=== PATIENT | male | born 1990 | race Caucasian/White ===

== ENCOUNTER 2017-04-21 10:29 | Emergency (ER) | payer OTHER ==
[2017-04-21] MEDS ORDERED: NS 0.9% 1000 ML* 1,000 ML IV ONE (10:52)
--- NOTE | 2017-04-21 11:05 | ED ---
Complex/Multi-Sys Presentation - HPI Summary HPI Summary: 26M presents with bilateral rib pain and upper abdominal pain today. He states he has a headache. He he had a couple episodes of vomiting that had some blood tinge to it. He denies any chest pain or SOB. He denies any cough. He states he has beginning of cirrhosis that this is what the pain feels like. He denies any diarrhea or constipation. He denies any fever. He denies any sinus congestion or generalized malaise. He denies any flank pain, dysuria, hematuria , frequency, urgency. He states headache is generalized. He denies any neck stiffness. He denies any melena or blood in stool. He denies any previous abdominal surgeries. He has a defibrillator because he has long QT. She has fmaily history of cirrhosis. He sees a GI doctor in [place]. - History Of Current Complaint Chief Complaint: EDAbdPain Time Seen by Provider: 04/21/17 10:45 - Allergies/Home Medications Allergies/Adverse Reactions: Allergies Allergy/AdvReac Type Severity Reaction Status Date / Time Sertraline [From Zoloft] Allergy Severe See Comment Verified 04/21/17 10:39 PMH/Surg Hx/FS Hx/Imm Hx Cardiovascular History: Reports: Hx Pacemaker/ICD, Other Cardiovascular Problems /Disorders - long QT GI History: Reports: Other GI Disorders - elevated LFT Infectious Disease History: No Infectious Disease History: Denies: Traveled Outside the in Last 30 Days - Social History Alcohol Use: None Substance Use Type: Reports: None Smoking Status (MU): Current Every Day Smoker Review of Systems Negative: Fever Positive: Other - lower rib pain. Negative: Chest Pain Negative: Shortness Of Breath Positive: Abdominal Pain, Vomiting, Nausea. Negative: Diarrhea All Other Systems Reviewed And Are Negative: Yes Physical Exam Triage Information Reviewed: Yes Vital Signs On Initial Exam: Initial Vitals Temp Pulse Resp BP Pulse Ox 98.4 F 58 16 129/71 98 04/21/17 10:31 04/21/17 10:31 04/21/17 10:31 04/21/17 10:31 04/21/17 10:31 Vital Signs Reviewed: Yes Appearance: Positive: Well-Appearing Skin: Positive: Warm, Dry Head/Face: Positive: Normal Head/Face Inspection Eyes: Positive: Normal, EOMI, PAVITHRA, Conjunctiva Clear ENT: Positive: Normal ENT inspection, Pharynx normal, TMs normal Respiratory/Lung Sounds: Positive: Clear to Auscultation, Breath Sounds Present , Other - tenderness lower ribs Cardiovascular: Positive: Normal, RRR Abdomen Description: Positive: Soft, Other: - tenderness epigastric, neg lisa Bowel Sounds: Positive: Present Musculoskeletal: Positive: Normal Neurological: Positive: Normal Psychiatric: Positive: Normal Diagnostics - Vital Signs Vital Signs Temp Pulse Resp BP Pulse Ox 04/21/17 10:31 98.4 F 58 16 129/71 98 - Laboratory Result Diagrams: 04/21/17 12:12 04/21/17 12:12 Lab Statement: Any lab studies that have been ordered have been reviewed, and results considered in the medical decision making process. - Radiology chest Xray Interpretation: No Acute Changes Radiology Interpretation Completed By: Radiologist - CT abd CT Interpretation: Positive (See Comments) - 1. "Mosaic" distribution of groundglass opacification most severely affecting the left upper lobe. The differential for this includes asthma, hypersensitivity pneumonitis and/or pulmonary embolism. 2. No complete characterization of the pulmonary arteries is not made on this CT examination due to inadequate bolus timing but there is likely no large cyst central or lobar pulmonary embolus. 3. There is a segment of proximal small bowel wall thickening measuring up to 1.3 cm in thickness. Please correlate to signs and symptoms of proximal enteritis. 4. Questionable identification of a mildly enlarged retroperitoneal lymph node of uncertain clinical significance. CT Interpretation Completed By: Radiologist - Ultrasound No standard instances Ultrasound Interpretation: No Acute Changes Ultrasound Interpretation Completed By: Radiologist - EKG No standard instances Cardiac Rate: NL, Bradycardia EKG Rhythm: Sinus Bradycardia ST Segment: Normal EKG Interpretation: sinus willian rhythmn, no significant ST elevation improved since previous EKG Comparison: Other - improved since previous EKG Complex Multi-Symp Course/Dx Course Of Treatment: 26M presents with bilateral rib pain and upper abdominal pain today. He states he has a headache. He he had a couple episodes of vomiting that had some blood tinge to it. He denies any chest pain or SOB. He denies any cough. He states he has beginning of cirrhosis that this is what the pain feels like. He denies any diarrhea or constipation. He denies any fever. He denies any sinus congestion or generalized malaise. He denies any flank pain, dysuria, hematuria, frequency, urgency. He states headache is generalized. He denies any neck stiffness. on exam has tenderness lower ribs, mild tenderness epigastric region. neg lisa. u/s gallbladder normal. chest xray normal. d-dimer normal. troponin normal. wbc 18 with left shift. bilirubin 1.3. due to labs will get CT. CT shows inflamation of proximal enteritis which would explain wbc. discussed with dr lynn does not antibiotic. will treat with zofran and brat diet. he has a wood stove which would explain mosaic appearance in lungs. patient admits to diarrhea at discharge as did not understand what diarrhea was. patient understand and agrees with plan. - Diagnoses Differential Diagnoses/HQI/PQRI: Urinary Tract Infection, Other - cirrhosis, pancreatitis, PE, gallbladder disease Provider Diagnoses: Abdominal pain, Nausea vomiting and diarrhea Discharge - Discharge Plan Condition: Good Disposition: HOME Prescriptions: Ondansetron ODT TAB* [Zofran 4 MG Odt TAB*] 4 mg PO Q6H PRN #20 tab.odt PRN Reason: Nausea Patient Education Materials: Gastroenteritis (ED) Referrals: Madelaine Bell MD [Primary Care Provider] - Additional Instructions: Can take Zofran every 6 hours as needed for nausea Drink small amounts of fluid as tolerated When able to eat follow BRAT diet: Bananas, rice, applesauce, toast Take ibuprofen or Tylenol for pain as needed every 6 hours Follow up with primary within 5 days Return to ED if develop fever that does not respond to Tylenol or ibuprofen, severe abdominal pain, or any new or worsening symptoms
[2017-04-21] MEDS ORDERED: Ondansetron INJ* 2 MG/ML VIAL IV ONE (11:06)
--- NOTE | 2017-04-21 11:46 | RAD ---
INDICATION: Bilateral rib pain COMPARISON: Similar chest x-ray dated November 07, 2012. TECHNIQUE: PA and lateral views of the chest were obtained. FINDINGS: Since the prior chest x-ray there has been placement of a 2-lead left upper chest cardiac pacemaker. The heart and mediastinum are normal in size and contour. The lungs are grossly clear. There is no evidence of large pleural effusion. Visualized bones are normal for the patient's age. There is no radiographic evidence of free air beneath the diaphragm IMPRESSION: No radiographic evidence of acute cardiopulmonary disease.
--- NOTE | 2017-04-21 12:03 | RAD ---
HISTORY: Epigastric pain COMPARISONS: None TECHNIQUE: Multiple transverse and longitudinal ultrasound images were obtained of the right upper quadrant. FINDINGS: LIVER: The liver is normal in dimensions and echogenicity. Normal hepatic and portal venous blood flow is duplicated with color flow imaging. There is no gross intrahepatic biliary duct dilatation. GALLBLADDER AND EXTRAHEPATIC BILIARY DUCT: The gallbladder is normal in appearance without intraluminal stones or other soft tissue masses. There is no pericholecystic fluid or gallbladder wall thickening. The common bile duct measures a maximum diameter of 2 mm. PANCREAS: The portions of the pancreas not obscured by bowel gas are normal in appearance. RIGHT KIDNEY: The right kidney is normal in size, morphology and echogenicity. AORTA AND IVC: The visualized portions are normal in appearance and not pathologically dilated. IMPRESSION: Normal ultrasound of the right upper quadrant.
[2017-04-21 12:31] LABS: Hematocrit 44 % (42-52); Hemoglobin 14.5 g/dl (14.0-18.0); Mean Corpuscular HGB Conc 33 g/dl (31-36); Mean Corpuscular Hemoglobin 30 pg (27-31); Mean Corpuscular Volume 89 fL (80-94); Mean Platelet Volume 8 um3 (7.4-10.4); Red Blood Count 4.93 10^6/ul (4.0-5.4); Red Cell Distribution Width 14 % (10.5-15); White Blood Count 18.2 10^3/ul (3.5-10.8)
[2017-04-21 12:46] LABS: ALT 12 U/L (7-52); AST 20 U/L (13-39); Albumin 4.4 g/dL (3.2-5.2); Alkaline Phosphatase 62 U/L (34-104); Anion Gap 8 mmol/L (2-11); BUN/Creatinine Ratio 22.5 (8-20); Blood Urea Nitrogen 20 mg/dL (6-24); CO2 Carbon Dioxide 25 mmol/L (22-32); Calcium 9.4 mg/dL (8.6-10.3); Chloride 102 mmol/L (101-111); EGFR African American 133.9 (>60); EGFR Non-African American 104.2 (>60); Globulin 2.7 g/dL (2-4); Glucose 94 mg/dL (70-100); Lipase < 10 U/L (11.0-82.0); Potassium 4.1 mmol/L (3.5-5.0); Sodium 135 mmol/L (133-145); Total Protein 7.1 g/dL (6.4-8.9)
[2017-04-21 12:56] LABS: Urine Bacteria Absent (Absent); Urine Bilirubin Negative (Negative); Urine Glucose Negative (Negative); Urine Nitrite Negative (Negative)
[2017-04-21 13:05] LABS: Manual Entry Verification HAN0055; Mono Internal Control QC Line Present
[2017-04-21] MEDS ORDERED: Iohexol 300* (CONTRAST) 10 ML SDV IV ONE (14:21)
--- NOTE | 2017-04-21 16:03 | RAD ---
INDICATION: Bilateral rib pain, nausea and vomiting. COMPARISON: None. TECHNIQUE: Multidetector CT images of the chest, abdomen and pelvis were obtained from the lung apices to the ischial tuberosities following the injection of 72 mL Omnipaque 300. The patient received oral contrast as well.. CHEST: Determination of pulmonary embolism is unreliable as this was not imaged according to a pulmonary embolism protocol. There are no central filling defects of the mainstem pulmonary arteries or proximal lobar branches. Again seen is a left upper chest cardiac pacemaker with 2 leads overlying the heart. There are geographic areas of groundglass opacification, the largest in the left upper lobe but scattered throughout the left lung and right upper lobe. There is no mediastinal or hilar lymphadenopathy. The heart and major vascular structures are grossly normal in appearance. ABDOMEN & PELVIS: The spleen, pancreas and adrenal glands are grossly normal in appearance. There is prominence of the biliary ducts throughout the liver without amy dilatation. At the anterior right lobe of the liver (image 21) there is a 5 mm hypoattenuating focus that is not further characterized on this CT examination. The liver is otherwise homogenous in attenuation and the surface is smooth. The gallbladder is normal. 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 Otherwise the kidneys are normal in appearance without focal mass, calcification or signs of hydronephrosis. On the delayed phase images contrast is symmetrically and promptly excreted. There are contrast has progressed as far as the rectum. At the proximal small bowel there are loops of bowel exhibiting severe wall thickening (axial image 41 and coronal image 26 measuring up to 1.1 cm in thickness. The appendix is not confidently identified in the right lower quadrant but there are no acute inflammatory changes in the right lower quadrant to indicate acute appendicitis. There is a questionably enlarged left of midline periaortic retroperitoneal lymph node measuring 8 x 15 mm in the axial plane (image 34). There is no definite mesenteric lymphadenopathy. The pelvic viscera is normal in appearance. The abdominal aorta and iliac arteries are normal in course and diameter. . There are no sinister bone lesions. IMPRESSION: 1. "Mosaic" distribution of groundglass opacification most severely affecting the left upper lobe. The differential for this includes asthma, hypersensitivity pneumonitis and/or pulmonary embolism. 2. No complete characterization of the pulmonary arteries is not made on this CT examination due to inadequate bolus timing but there is likely no large cyst central or lobar pulmonary embolus. 3. There is a segment of proximal small bowel wall thickening measuring up to 1.3 cm in thickness. Please correlate to signs and symptoms of proximal enteritis. 4. Questionable identification of a mildly enlarged retroperitoneal lymph node of uncertain clinical significance.
[2017-04-21 16:22] VITALS: BP 111/67
== END 2017-04-21 16:30 | disposition home or self-care (01) ==
LOC: ED 10:29
DX: R10.9 Unspecified abdominal pain (principal); R11.2 Nausea with vomiting, unspecified; R19.7 Diarrhea, unspecified
CPT/HCPCS: 36415; 71020; 71260; 74177; 76705; 80053; 81003; 81015; 83690; 83880; 84484; 85025; 85379; 86141; 86308; 87086; 93005; 99283; J2405; Q9967

== ENCOUNTER 2017-06-29 05:49 | Emergency (ER) | payer MEDICAID, OTHER ==
[2017-06-29] MEDS ORDERED: NS 0.9% 1000 ML* 1,000 ML IV ONE (06:04)
[2017-06-29] MEDS ORDERED: Ketorolac INJ* 30 MG/ML 1 ML VIAL IV PUSH ONE (06:05)
[2017-06-29 06:35] LABS: ABS Basophils 0.1 10^3/ul (0-0.2); ABS Eosinophils 0.1 10^3/ul (0-0.6); ABS Lymphocytes 1.9 10^3/ul (1.0-4.8); ABS Monocytes 0.5 10^3/ul (0-0.8); ABS Neutrophils 3.6 10^3/ul (1.5-7.7); ABS Nucleated RBC 0 10^3/ul; Eosinophil % 1.9 % (0-6); Hematocrit 43 % (42-52); Hemoglobin 14.8 g/dl (14.0-18.0); Lymphocyte % 31.3 % (25-47); Mean Corpuscular HGB Conc 34 g/dl (31-36); Mean Corpuscular Hemoglobin 30 pg (27-31); Mean Corpuscular Volume 87 fL (80-94); Mean Platelet Volume 8 um3 (7.4-10.4); Nucleated Red Blood Cells % 0; Platelet Count 147 10^3/ul (150-450); Red Blood Count 4.96 10^6/ul (4.0-5.4); Red Cell Distribution Width 13 % (10.5-15); White Blood Count 6.1 10^3/ul (3.5-10.8)
[2017-06-29 06:57] LABS: EGFR Non-African American 100.2 (>60)
--- NOTE | 2017-06-29 06:57 | ED ---
Albert Pace Tecjoon, scribed for Mukul Romano MD on 06/29/17 at 0608 . HPI Chest Pain - HPI Summary HPI Summary: This patient is a 26 year old male BIBA to [facility] with a chief complaint of chest pain since waking up a few hours ago. Patient states that he was sleeping and owke up out of a sleep with chest pain. Patient states he has a prior history of cardiac disease and has a defibrillator on chest. The pain is described as a stabbing pain. The pain is rated 9/10 in severity and is 7/10 currently. Symptoms aggravated by nothing. Symptoms alleviated by nothing. Patient additionally reports dizziness. Patient denies recent chest trauma. Patient was given aspirin in the field by EMS. - History of Current Complaint Time Seen by Provider: 06/29/17 05:52 Hx Obtained From: Patient Onset/Duration: Started Hours Ago, Still Present Timing: Constant Initial Severity: Mild Current Severity: Mild Pain Intensity: 7 Pain Scale Used: 0-10 Numeric Chest Pain Location: Diffuse Aggravating Factor(s): Nothing Alleviating Factor(s): Nothing Associated Signs and Symptoms: Positive: Negative - recent chest trauma, Other: - dizziness PMH/Surg Hx/FS Hx/Imm Hx Previously Healthy: No Cardiovascular History: Reports: Hx Pacemaker/ICD, Other Cardiovascular Problems /Disorders - long QT GI History: Reports: Other GI Disorders - elevated LFT Opthamlomology History: Denies: Hx Legally Blind EENT History: Denies: Hx Deafness - Family History Known Family History: Positive: Cardiac Disease - Social History Alcohol Use: None Hx Substance Use: No Substance Use Type: Reports: None Hx Tobacco Use: Yes Smoking Status (MU): Former Smoker Type: Cigarettes Review of Systems Negative: Fever Positive: Chest Pain Neurological: Other - dizziness All Other Systems Reviewed And Are Negative: Yes Physical Exam - Summary Physical Exam Summary: Appearance: Well appearing, no pain distress, disheveled Skin: warm, dry, reflects adequate perfusion Head/face: normal Eyes: EOMI, PAVITHRA ENT: normal Neck: supple, non-tender Respiratory: CTA, breath sounds present Cardiovascular: RRR, pulses symmetrical, Pacemaker/defibrillator, Aicd in left chest Abdomen: non-tender, soft Bowel: present Musculoskeletal: normal, strength/ROM intact Neuro: normal, sensory motor intact, A&Ox3 Triage Information Reviewed: Yes Vital Signs On Initial Exam: Initial Vitals Temp Pulse Resp BP Pulse Ox 36.7 C 64 16 100/54 100 06/29/17 05:50 06/29/17 05:50 06/29/17 05:50 06/29/17 05:50 06/29/17 05:50 Vital Signs Reviewed: Yes Diagnostics - Vital Signs Vital Signs Temp Pulse Resp BP Pulse Ox 06/29/17 06:11 58 19 98 06/29/17 06:10 110/62 06/29/17 05:50 36.7 C 64 16 100/54 100 - Laboratory Lab Results: Lab Results 06/29/17 06/29/17 Range/Units 06:15 06:15 WBC 6.1 (3.5-10.8) 10^3/ul RBC 4.96 (4.0-5.4) 10^6/ul Hgb 14.8 (14.0-18.0) g/dl Hct 43 (42-52) % MCV 87 (80-94) fL MCH 30 (27-31) pg MCHC 34 (31-36) g/dl RDW 13 (10.5-15) % Plt Count 147 L (150-450) 10^3/ul MPV 8 (7.4-10.4) um3 Neut % (Auto) 57.8 (38-83) % Lymph % (Auto) 31.3 (25-47) % Logan % (Auto) 8.1 (1-9) % Eos % (Auto) 1.9 (0-6) % Baso % (Auto) 0.9 (0-2) % Absolute Neuts (auto) 3.6 (1.5-7.7) 10^3/ul Absolute Lymphs (auto) 1.9 (1.0-4.8) 10^3/ul Absolute Monos (auto) 0.5 (0-0.8) 10^3/ul Absolute Eos (auto) 0.1 (0-0.6) 10^3/ul Absolute Basos (auto) 0.1 (0-0.2) 10^3/ul Absolute Nucleated RBC 0 10^3/ul Nucleated RBC % 0 Lactic Acid 0.4 L (0.5-2.0) mmol/L Result Diagrams: 01/27/18 06:15 Lab Statement: Any lab studies that have been ordered have been reviewed, and results considered in the medical decision making process. - Radiology CXR Xray Interpretation: Positive (See Comments) - CXR reveals, per ED Physician, Thin body habitus. Aicd left chest. No acute infiltrate. Normal media stenum. Radiology Interpretation Completed By: ED Physician - EKG 0551 Cardiac Rate: Bradycardia EKG Rhythm: Sinus Bradycardia - 55 BPM EKG Interpretation: Sinus Bradycardia, left axis deviation, reveals QT prolongation 49ms Re-Evaluation - Re-Evaluation First Eval Re-Evaluation Time: 06:52 Change: Improved Comment: Patient states that his pain is gone with Toradol Chest Pain Course/Dx - Course Course Of Treatment: pt with freq bouts of sharp, fleeting chest pains of very short duration over years. Hx of alivia long QT syndrome with AICD. No c/o palpitations. Ddimer, Trop not detected. ECG unchanged from previous. Pain gone with toradol. 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 - Chest Pain Differential Diagnosis/HQI/PQRI: Acute MS, ACS, Chest Wall, Lower Respiratory Infection, Pulmonary Embolism - Diagnoses Provider Diagnoses: Atypical chest pain, Congenital long QT syndrome Discharge - Discharge Plan Condition: Good Disposition: HOME Patient Education Materials: Chest Pain (ED) Referrals: Madelanie Bell MD [Primary Care Provider] - Additional Instructions: Call Dr Madera your [employer] [facility] in [place] on Saturday for an appt. They can interrogate your defibrillator device. Ibuprofen as needed for discomfort. Return with palpitation, passing out, uncontrolled pain, worse or other concerns as discussed. The documentation as recorded by the Albert sam Tecjoon accurately reflects the service I personally performed and the decisions made by me, Mukul Romano MD.
[2017-06-29 07:24] VITALS: BP 104/66
--- NOTE | 2017-06-29 08:25 | RAD ---
HISTORY: Chest pain COMPARISONS: April 21, 2017 VIEWS: 1: frontal portable view of the chest at 6:20 AM FINDINGS: LINES AND TUBES: A left-sided AICD pacemaker is noted. CARDIOMEDIASTINAL SILHOUETTE: The cardiomediastinal silhouette is normal for portable technique. PLEURA: The costophrenic angles are sharp. No pleural abnormalities are noted. LUNG PARENCHYMA: The lungs are clear. ABDOMEN: The upper abdomen is clear. There is no subphrenic gas. BONES AND SOFT TISSUES: No bone or soft tissue abnormalities are noted. IMPRESSION: LINES AND TUBES ABOVE. NO ACTIVE CARDIOPULMONARY DISEASE.
== END 2017-06-29 07:16 | disposition home or self-care (01) ==
LOC: ED 05:49
DX: R07.89 Other chest pain (principal); I45.81 Long QT syndrome; R42 Dizziness and giddiness; Z87.891 Personal history of nicotine dependence
CPT/HCPCS: 36415; 71045; 80053; 83605; 84484; 85025; 85379; 93005; 96361; 96374; 99283; J1885

== ENCOUNTER 2017-09-16 13:52 | Emergency (ER) | payer MEDICAID ==
[2017-09-16] MEDS ORDERED: Amoxicillin/Clavulanate TAB* 875 MG PO ONE (15:13)
--- NOTE | 2017-09-16 15:16 | ED ---
Throat Pain/Nasal Congestion - HPI Summary HPI Summary: 27-year-old male presents with sinus pressure for the past day. He states that for the past 5 days he's had increasing sinus congestion but today the pressure has become extreme. He admits to ear pain. He admits to headache that is worse when went forward. He denies any fevers. He also admits to cough. Denies any shortness breath or chest pain. Denies any bowel pain. He states he states whenever he cough he starts to feel nauseous. Does have a defibrillator placed for arrhythmia. He hasn't taking ibuprofen without relief. This is not worse headache of his life. He denies any neck pain. Denies any sore throat. No one else is sick. His is . - History of Current Complaint Chief Complaint: EDGeneral Time Seen by Provider: 09/16/17 14:52 - Allergies/Home Medications Allergies/Adverse Reactions: Allergies Allergy/AdvReac Type Severity Reaction Status Date / Time sertraline [From Zoloft] AdvReac See Comment Verified 09/16/17 13:58 Home Medications: Home Medications Carvedilol TAB* [Coreg TAB*] 3.125 mg PO BID 09/16/17 [History Confirmed ] Magnesium [Magnesium Elemental] 30 mg PO DAILY 09/16/17 [History Confirmed 09/16] PMH/Surg Hx/FS Hx/Imm Hx Endocrine/Hematology History: Denies: Hx Anticoagulant Therapy Cardiovascular History: Reports: Hx Pacemaker/ICD, Other Cardiovascular Problems /Disorders - long QT GI History: Reports: Other GI Disorders - elevated LFT Sensory History: Denies: Hx Legally Blind, Hx Deafness Opthamlomology History: Denies: Hx Legally Blind - Immunization History Date of Influenza Vaccine: has not received Infectious Disease History: No Infectious Disease History: Denies: Traveled Outside the [place] in Last 30 Days - Family History Known Family History: Positive: Cardiac Disease - Social History Alcohol Use: None Hx Substance Use: No Substance Use Type: Reports: None Hx Tobacco Use: Yes Smoking Status (MU): Former Smoker Type: Cigarettes Review of Systems Negative: Fever Positive: Ear Ache, Nasal Discharge Negative: Chest Pain Negative: Shortness Of Breath Positive: Headache All Other Systems Reviewed And Are Negative: Yes Physical Exam Triage Information Reviewed: Yes Vital Signs On Initial Exam: Initial Vitals Temp Pulse Resp BP Pulse Ox 99.1 F 71 14 116/74 98 09/16/17 13:56 09/16/17 13:56 09/16/17 13:56 09/16/17 13:56 09/16/17 13:56 Vital Signs Reviewed: Yes Appearance: Positive: Well-Appearing Skin: Positive: Warm, Dry Head/Face: Positive: Normal Head/Face Inspection Eyes: Positive: Normal, EOMI, PAVITHRA, Conjunctiva Clear ENT: Positive: Normal ENT inspection, Pharynx normal, Nasal congestion, TMs normal, Sinus tenderness Neck: Positive: Supple, Nontender, No Lymphadenopathy Respiratory/Lung Sounds: Positive: Clear to Auscultation, Breath Sounds Present Cardiovascular: Positive: Normal, RRR Abdomen Description: Positive: Nontender, Soft Bowel Sounds: Positive: Present Musculoskeletal: Positive: Normal Neurological: Positive: Normal Psychiatric: Positive: Normal Diagnostics - Vital Signs Vital Signs Temp Pulse Resp BP Pulse Ox 09/16/17 13:56 99.1 F 71 14 116/74 98 - Laboratory Lab Statement: Any lab studies that have been ordered have been reviewed, and results considered in the medical decision making process. EENT Course/Dx - Course Course Of Treatment: 27-year-old male presents with sinus pressure for the past day. He states that for the past 5 days he's had increasing sinus congestion but today the pressure has become extreme. He admits to ear pain. He admits to headache that is worse when went forward. He denies any fevers. He also admits to cough. Denies any shortness breath or chest pain. Denies any bowel pain. He states he states whenever he cough he starts to feel nauseous. Does have a defibrillator placed for arrhythmia. He hasn't taking ibuprofen without relief. This is not worse headache of his life. He denies any neck pain. Denies any sore throat. No one else is sick. His is . On exam nasal congestion Present. fluid behind TM. Tenderness of the sinuses. Lungs clear to auscultation. Will treat with Augmentin as symptoms have gotten worse. We'll also uses Flonase. Patient understands agrees with plan. - Differential Diagnoses Differential Diagnoses: Allergic Rhinitis, Otitis Media, Sinusitis - Diagnoses Provider Diagnoses: Sinusitis Discharge - Sign-Out/Discharge Documenting (check all that apply): Discharge - Discharge Plan Condition: Good Disposition: HOME Prescriptions: Amoxicillin/Clavulanate TAB* [Augmentin TAB 875*] 875 mg PO BID #19 tab Fluticasone NASAL SPRAY 50MCG* [Flonase NASAL SPRAY 50MCG*] 2 spray BOTH NARES DAILY #1 btl Patient Education Materials: Sinusitis (ED) Referrals: Madelaine Bell MD [Primary Care Provider] - Additional Instructions: Take antibiotic twice a day for 10 days Use intranasal steroid one spray each nostril twice a day Use saline spray in nose as much as needed Use humidifier in room or can use warm water in bowls Use OTC decongestions Take tyenlol or ibuprofen for pain every 6 hours Follow up with primary care physician within a week for no improvement Return to ED with any new or worsening symptoms - Billing Disposition and Condition Condition: GOOD Disposition: HOME
[2017-09-16 16:07] VITALS: BP 110/65
== END 2017-09-16 16:07 | disposition home or self-care (01) ==
LOC: ED 13:52
DX: J32.9 Chronic sinusitis, unspecified (principal); R51 Headache; Z87.891 Personal history of nicotine dependence; H92.09 Otalgia, unspecified ear
CPT/HCPCS: 99282; A9270-GY

== ENCOUNTER → 2018-02-14 09:08 | Emergency (ER) | payer MEDICAID ==
--- NOTE | 2018-02-14 09:37 | ED ---
HPI Chest Pain - HPI Summary HPI Summary: This patient is a 27 year old M presenting to [facility] accompanied by a female with a chief complaint of a stabbing CP that began this morning when he woke up. The patient rates the pain 6/10 in severity. Symptoms aggravated by deep breaths. Patient reports nasal congestion, cough, and headache that began yesterday. Pt is concerned because of his ICD. - History of Current Complaint Chief Complaint: EDGeneral Hx Obtained From: Patient Onset/Duration: Started Hours Ago, Still Present Timing: Constant Initial Severity: Moderate Current Severity: Moderate Pain Intensity: 6 Pain Scale Used: 0-10 Numeric Chest Pain Location: Diffuse Chest Pain Radiates: No Character: Sharp/Stabbing Associated Signs and Symptoms: Positive: Other: - nasal congestion, cough, and headache that began yesterday - Allergy/Home Medications Allergies/Adverse Reactions: Allergies Allergy/AdvReac Type Severity Reaction Status Date / Time sertraline [From Zoloft] AdvReac See Comment Verified 02/14/18 09:41 Home Medications: Home Medications Zoloft 25 mg PO DAILY 02/14/18 [History Confirmed 02/14/18] PMH/Surg Hx/FS Hx/Imm Hx Endocrine/Hematology History: Denies: Hx Anticoagulant Therapy Cardiovascular History: Reports: Hx Pacemaker/ICD, Other Cardiovascular Problems /Disorders - long QT GI History: Reports: Other GI Disorders - elevated LFT Sensory History: Denies: Hx Legally Blind, Hx Deafness Opthamlomology History: Denies: Hx Legally Blind Neurological History: Reports: Other Neuro Impairments/Disorders - scoliosis, Psychiatric History: Reports: Hx Anxiety, Hx Depression - Immunization History Date of Influenza Vaccine: has not received Infectious Disease History: No Infectious Disease History: Denies: Traveled Outside the [place] in Last 30 Days - Family History Known Family History: Positive: Cardiac Disease - Social History Lives: With Family Alcohol Use: None Hx Substance Use: No Substance Use Type: Reports: None Hx Tobacco Use: Yes Smoking Status (MU): Former Smoker Type: Cigarettes Review of Systems Positive: Other - nasal congestion Positive: Chest Pain Positive: Cough Positive: Headache All Other Systems Reviewed And Are Negative: Yes Physical Exam - Summary Physical Exam Summary: VITAL SIGNS: Reviewed. GENERAL: Patient is a well-developed and nourished male who is lying comfortable in the stretcher. Patient is not in any acute respiratory distress poor hygiene HEAD AND FACE: No signs of trauma. No ecchymosis, hematomas or skull depressions. No sinus tenderness. EYES: PERRLA, EOMI x 2, No injected conjunctiva, no nystagmus. EARS: Hearing grossly intact. Ear canals and tympanic membranes are within normal limits. MOUTH: Oropharynx within normal limits. nasal mucus with erythema NECK: Supple, trachea is midline, no adenopathy, no JVD, no carotid bruit, no c- spine tenderness, neck with full ROM. CHEST: Symmetric, no tenderness at palpation LUNGS: Clear to auscultation bilaterally. No wheezing or crackles. CVS: Regular rate and rhythm, S1 and S2 present, no murmurs or gallops appreciated. ABDOMEN: Soft, non-tender. No signs of distention. No rebound no guarding, and no masses palpated. Bowel sounds are normal. EXTREMITIES: FROM in all major joints, no edema, no cyanosis or clubbing. NEURO: Alert and oriented x 3. No acute neurological deficits. Speech is normal and follows commands. SKIN: Dry and warm Triage Information Reviewed: Yes Vital Signs On Initial Exam: Initial Vitals Temp Pulse Resp BP Pulse Ox 98.3 F 66 16 114/73 99 02/14/18 09:11 02/14/18 09:11 02/14/18 09:11 02/14/18 09:11 02/14/18 09:11 Vital Signs Reviewed: Yes Diagnostics - Vital Signs Vital Signs Temp Pulse Resp BP Pulse Ox 02/14/18 09:11 98.3 F 66 16 114/73 99 - Laboratory Result Diagrams: 02/14/18 09:41 02/14/18 09:41 Lab Statement: Any lab studies that have been ordered have been reviewed, and results considered in the medical decision making process. - Radiology CXR Radiology Interpretation Completed By: Radiologist - no acute cardiopulmonary disease ED physician has reviewed this radiology report. - EKG 0915 Cardiac Rate: NL EKG Rhythm: Sinus Rhythm - at 60 BPM EKG Interpretation: no STEMI EKG Comparison: No Significant Change - 06-29-17 similar Chest Pain Course/Dx - Course Assessment/Plan: This patient is a 27-year-old male who presents to the emergency department with a chief complaint of having chest pain. The patient reports that chest pain is sharp without any radiation. The patient denies any nausea vomiting, shortness of breath or diaphoresis. He also reports that he has past medical history for arrhythmias and he has a pacemaker. He also reports that he has been having nasal congestion and he wanted be tested for GC and chlamydia since his Friend told him that she was found to be positive for Chlamydia. Patient denies any penile discharge or pain. Patient has no other complaints. Blood test results without any significant abnormality. Troponin is 0.00. The chest x-ray shows no acute pathology. The EKG shows no ST elevation and is similar to. His EKG done in the past in the emergency department. Therefore this point i dont not believe that the patient has any acute coronary syndrome I believe the patient has a viral infection likely an upper respiratory tract infection. Therefore the patient will be discharged home with follow-up with PCP. The patient will be given a prescription for Flonase. The STI testing is pending and the patient did not want any treatment at this time. I discussed all the findings and test results with the patient. Patient was instructed to return to the emergency room immediately if any of the symptoms return or worsens. Plan of care was discussed with the patient and understands and agrees. All questions were answered at patient satisfaction. There were no further complaints or concerns. Lung exam before discharge: CTA B /L. Good air exchange. No wheezing or crackles heard. CVS: S1 and S2 present. No murmurs appreciated. Patient is alert and oriented x 3. Patient is hemodynamically stable. Patient will be discharged home with follow up PCP in the next 2-3 days - Chest Pain Differential Diagnosis/HQI/PQRI: Acute NH, ACS, Angina, CHF, Chest Wall, GI Disease, Lower Respiratory Infection - Diagnoses Provider Diagnoses: Atypical chest pain, Upper respiratory tract infection Discharge - Sign-Out/Discharge Documenting (check all that apply): Patient Departure - Discharge Plan Condition: Stable Disposition: HOME Patient Education Materials: Chest Pain (ED) Referrals: Madelaine Bell MD [Primary Care Provider] - 2 Days Additional Instructions: RETURN TO THE EMERGENCY DEPARTMENT FOR CHANGING OR WORSENING SYMPTOMS. FOLLOW UP WITH PCP IN 1-2 DAYS. - Billing Disposition and Condition Condition: STABLE Disposition: Home - Attestation Statements Document Initiated by Scribe: Yes Documenting Scribe: Luis E Howard Provider For Whom Scribe is Documenting (Include Credential): Artie Elizalde MD Scribe Attestation: I, Luis E Howard , scribed for Artie Elizalde MD on 02/15/18 at 2054. Scribe Documentation Reviewed: Yes Provider Attestation: The documentation as recorded by the [email or web address] E accurately reflects the service I personally performed and the decisions made by me, Artie Elizalde MD
[2018-02-14 10:00] LABS: ABS Basophils 0.1 10^3/ul (0-0.2); ABS Eosinophils 0.1 10^3/ul (0-0.6); ABS Lymphocytes 1.3 10^3/ul (1.0-4.8); ABS Monocytes 0.9 10^3/ul (0-0.8); ABS Neutrophils 5.9 10^3/ul (1.5-7.7); ABS Nucleated RBC 0 10^3/ul; Eosinophil % 1.6 % (0-6); Hematocrit 44 % (42-52); Hemoglobin 14.6 g/dl (14.0-18.0); Lymphocyte % 16.2 % (25-47); Mean Corpuscular HGB Conc 33 g/dl (31-36); Mean Corpuscular Hemoglobin 29 pg (27-31); Mean Corpuscular Volume 86 fL (80-94); Nucleated Red Blood Cells % 0; Platelet Count 151 10^3/ul (150-450); Red Blood Count 5.09 10^6/ul (4.00-5.40); Red Cell Distribution Width 13 % (10.5-15); White Blood Count 8.3 10^3/ul (3.5-10.8)
[2018-02-14 10:11] VITALS: BP 103/63
[2018-02-14 10:13] LABS: INR 1.04 (0.77-1.02)
[2018-02-14 10:20] LABS: EGFR Non-African American 98.2 (>60)
[2018-02-14 10:45] LABS: Urine Appearance Clear; Urine Blood Negative (Negative); Urine Color Yellow; Urine Ketones Negative (Negative); Urine Protein Negative (Negative); Urine Specific Gravity 1.023 (1.010-1.030); Urine Urobilinogen Negative (Negative)
--- NOTE | 2018-02-14 11:10 | RAD ---
HISTORY: CP COMPARISONS: June 29, 2017 VIEWS: 1: frontal portable view of the chest at 10:10 AM FINDINGS: LINES AND TUBES: A left-sided AICD pacemaker is noted. CARDIOMEDIASTINAL SILHOUETTE: The cardiomediastinal silhouette is normal for portable technique. PLEURA: The costophrenic angles are sharp. No pleural abnormalities are noted. LUNG PARENCHYMA: The lungs are clear. ABDOMEN: The upper abdomen is clear. There is no subphrenic gas. BONES AND SOFT TISSUES: No bone or soft tissue abnormalities are noted. IMPRESSION: NO ACTIVE CARDIOPULMONARY DISEASE.
== END | disposition home or self-care (01) ==
LOC: ED 09:08
DX: R07.89 Other chest pain (principal); J06.9 Acute upper respiratory infection, unspecified; Z87.891 Personal history of nicotine dependence; Z95.0 Presence of cardiac pacemaker; I45.81 Long QT syndrome
CPT/HCPCS: 36415; 71045; 80053; 81003; 82550; 82553; 83605; 83735; 83880; 84443; 84484; 85025; 85610; 85730; 86703; 93005; 99282

== ENCOUNTER 2018-02-19 16:12 | Emergency (ER) | payer MEDICAID ==
[2018-02-19 19:06] LABS: ABS Basophils 0.1 10^3/ul (0-0.2); ABS Eosinophils 0.2 10^3/ul (0-0.6); ABS Lymphocytes 2.3 10^3/ul (1.0-4.8); ABS Monocytes 0.6 10^3/ul (0-0.8); ABS Neutrophils 4.6 10^3/ul (1.5-7.7); ABS Nucleated RBC 0 10^3/ul; Eosinophil % 2.8 % (0-6); Hematocrit 40 % (42-52); Hemoglobin 13.3 g/dl (14.0-18.0); Lymphocyte % 29.9 % (25-47); Mean Corpuscular HGB Conc 33 g/dl (31-36); Mean Corpuscular Hemoglobin 29 pg (27-31); Mean Corpuscular Volume 86 fL (80-94); Mean Platelet Volume 7.8 um3 (7.4-10.4); Nucleated Red Blood Cells % 0; Platelet Count 168 10^3/ul (150-450); Red Blood Count 4.63 10^6/ul (4.00-5.40); Red Cell Distribution Width 13 % (10.5-15); White Blood Count 7.8 10^3/ul (3.5-10.8)
--- NOTE | 2018-02-19 19:08 | ED ---
Neck Pain - HPI Summary HPI Summary: Patient is a 27-year-old male with a history of heart palpitations and arrhythmias diagnosed 2 years ago with a subsequent ICD placement. He states he has not had any chest pain, dysrhythmias or issues since that time until approximately 5 days ago when he developed severe chest pain, cough, wheezing. He was seen here in the ED and diagnosed with atypical chest pain as troponins and other labs were WNL. Approximate 2 days ago however, he developed right- sided neck pain and swelling, worse with neck rotation to the left side. He denies any trauma to the area, strains or injuries. He denies any dizziness, blurry vision. He does endorse headache and radiation of pain from the neck into the ear and right upper jaw. No history of abscesses/infections. He has never had anything like this before. Symptoms are not improved with rest, not worse with ambulation. He does endorse some chest heaviness and is concerned due to his ICD. - History of Current Complaint Chief Complaint: EDNeckComplaint Stated Complaint: RT NECK/EAR PAIN Time Seen by Provider: 02/19/18 17:38 Hx Obtained From: Patient Onset/Duration Of Injury/Symptoms: Days Timing: Constant Onset/Duration: Sudden Onset Severity Initially: Moderate Severity Currently: Moderate Pain Intensity: 7 Pain Scale Used: 0-10 Numeric Location: Discrete At: - right sided neck tenderness and swelling Aggravating Factors: Position - worse with rotation to the L side Associated Signs & Symptoms: Positive: Swelling. Negative: Bruising, Weakness, Headache, Paresthesia - Risk Factors Meningitis Risk Factors: Negative - Allergies/Home Medications Allergies/Adverse Reactions: Allergies Allergy/AdvReac Type Severity Reaction Status Date / Time sertraline [From Zoloft] AdvReac See Comment Verified 02/14/18 09:41 PMH/Surg Hx/FS Hx/Imm Hx Previously Healthy: Yes Endocrine/Hematology History: Denies: Hx Anticoagulant Therapy Cardiovascular History: Reports: Hx Pacemaker/ICD, Other Cardiovascular Problems /Disorders - long QT GI History: Reports: Other GI Disorders - elevated LFT Sensory History: Denies: Hx Legally Blind, Hx Deafness Opthamlomology History: Denies: Hx Legally Blind Neurological History: Reports: Other Neuro Impairments/Disorders - scoliosis, Psychiatric History: Reports: Hx Anxiety, Hx Depression - Surgical History Surgery Procedure, Year, and Place: TUBES IN EARS - Immunization History Date of Influenza Vaccine: has not received Hx Pertussis Vaccination: No Immunizations Up to Date: Yes Infectious Disease History: No Infectious Disease History: Denies: Traveled Outside the [place] in Last 30 Days - Family History Known Family History: Positive: Cardiac Disease - Social History Occupation: Employed Part-time Lives: With Family Alcohol Use: None Hx Substance Use: No Substance Use Type: Reports: None Hx Tobacco Use: Yes Smoking Status (MU): Former Smoker Type: Cigarettes Review of Systems Constitutional: Negative Negative: Fever, Chills, Fatigue, Skin Diaphoresis Negative: Blurred Vision, Diplopia, Drainage, Erythema Positive: Dental Pain - upper jaw - radiating form neck. Negative: Epistaxis, Sore Throat, Ear Ache, Nasal Discharge Positive: Chest Pain Positive: Cough. Negative: Shortness Of Breath Genitourinary: Negative Positive: no symptoms reported, see HPI Positive: Arthralgia - right sided back pain Positive: Other - swelling to the R side of neck Positive: Headache Psychological: Normal All Other Systems Reviewed And Are Negative: Yes Physical Exam Triage Information Reviewed: Yes Vital Signs On Initial Exam: Initial Vitals Temp Pulse Resp BP Pulse Ox 98.6 F 61 16 106/72 98 02/19/18 16:20 02/19/18 16:20 02/19/18 16:20 02/19/18 16:20 02/19/18 16:20 Vital Signs Reviewed: Yes Appearance: Positive: Well-Appearing, Well-Nourished Skin: Positive: Warm, Skin Color Reflects Adequate Perfusion Head/Face: Positive: Normal Head/Face Inspection Eyes: Positive: EOMI, PAVITHRA, Conjunctiva Clear Neck: Positive: Tenderness @ - right side of neck over sternoclediomastoid muscle, Other: - no enlarged cervical anterior or posterior cervical or post auricular nodes Respiratory/Lung Sounds: Positive: Clear to Auscultation, Breath Sounds Present Cardiovascular: Positive: RRR, Pulses are Symmetrical in both Upper and Lower Extremities, S1, S2. Negative: Leg Edema Left, Leg Edema Right Musculoskeletal: Positive: Other - right sided neck tenderness and swelling Neurological: Positive: Sensory/Motor Intact, Alert, Oriented to Person Place, Time, CN Intact II-III, Reflexes Intact, Speech Normal Psychiatric: Positive: Normal, Affect/Mood Appropriate AVPU Assessment: Alert Diagnostics - Vital Signs Vital Signs Temp Pulse Resp BP Pulse Ox 02/19/18 16:20 98.6 F 61 16 106/72 98 - Laboratory Lab Results: Lab Results 02/19/18 Range/Units 18:58 WBC 7.8 (3.5-10.8) 10^3/ul RBC 4.63 (4.00-5.40) 10^6/ul Hgb 13.3 L (14.0-18.0) g/dl Hct 40 L (42-52) % MCV 86 (80-94) fL MCH 29 (27-31) pg MCHC 33 (31-36) g/dl RDW 13 (10.5-15) % Plt Count 168 (150-450) 10^3/ul MPV 7.8 (7.4-10.4) um3 Neut % (Auto) 59.0 (38-83) % Lymph % (Auto) 29.9 (25-47) % [place] % (Auto) 7.3 H (0-7) % Eos % (Auto) 2.8 (0-6) % Baso % (Auto) 1.0 (0-2) % Absolute Neuts (auto) 4.6 (1.5-7.7) 10^3/ul Absolute Lymphs (auto) 2.3 (1.0-4.8) 10^3/ul Absolute Monos (auto) 0.6 (0-0.8) 10^3/ul Absolute Eos (auto) 0.2 (0-0.6) 10^3/ul Absolute Basos (auto) 0.1 (0-0.2) 10^3/ul Absolute Nucleated RBC 0 10^3/ul Nucleated RBC % 0 Result Diagrams: 02/19/18 18:58 02/19/18 18:58 Lab Statement: Any lab studies that have been ordered have been reviewed, and results considered in the medical decision making process. Neck Course/Dx - Course Course Of Treatment: Due to his ICD placement and cardiac history, cardiac workup was obtained due to right-sided neck pain, chest pressure, cough and wheezing. Labs obtained which are WNL including a troponin of 0.00. On physical examination, patient appears well, lungs CTA. RRR. ICD in place. EKG obtained which is negative for any acute findings, shows normal sinus rhythm. Right-sided swelling to the neck, no bruits heard. Patient also requests STD testing. CT brain shows no acute intracranial abnormalities. He neck without IV contrast shows sphenoid [place] nasal sinusitis possibly correlating with patient's symptomology. Patient does endorse feeling pressure in the sphenoid sinuses. He states he would like to avoid amoxicillin due to his having an allergy, and doxycycline is contraindicated with his magnesium supplement. He is given Levaquin 5 days, first dose is given in the ED. - Diagnoses Differential Dx/HQI/PQRI: Positive: Adenitis, Dystonia, Torticollis, Vertebral Artery Aneurysm Provider Diagnoses: Sinusitis Discharge - Sign-Out/Discharge Documenting (check all that apply): Patient Departure - Discharge Plan Condition: Stable Disposition: HOME Prescriptions: levoFLOXacin [Levaquin] 500 mg PO DAILY #4 tablet Patient Education Materials: Sinusitis (ED), Warm Compress or Soak (ED) Referrals: Madelaine Bell MD [Primary Care Provider] - Additional Instructions: Levaquin daily 4 days Continue with nasal sprays If any symptoms worsen, return to the ED - Billing Disposition and Condition Condition: STABLE Disposition: Home
--- NOTE | 2018-02-19 19:17 | RAD ---
EXAM: CT Head Without Intravenous Contrast CLINICAL HISTORY: 27 years old, male; Pain; Headache; Headache not specified; Patient HX: Ear tubes; Additional info: HUGHES and swelling in the neck TECHNIQUE: Axial computed tomography images of the head/brain without intravenous contrast. All CT scans at this facility use at least one of these dose optimization techniques: automated exposure control; mA and/or kV adjustment per patient size (includes targeted exams where dose is matched to clinical indication); or iterative reconstruction. COMPARISON: No relevant prior studies available. FINDINGS: Brain: No acute ischemic changes, extra axial fluid collections, intraparenchymal hemorrhage, or midline shift. Ventricles: Normal. No ventriculomegaly. Symmetrical in position. Bones/joints: No acute fracture. No suspicious osseous lesions. Soft tissues: Normal. Sinuses: Air-fluid level within the left sphenoid sinus. Remaining paranasal sinuses are clear. Mastoid air cells: Normal as visualized. No mastoid effusion. IMPRESSION: Sphenoid paranasal sinusitis possibly correlating with patient's symptomatology.
--- NOTE | 2018-02-19 19:22 | RAD ---
EXAM: CT Neck Without Intravenous Contrast CLINICAL HISTORY: 27 years old, male; Pain; Neck pain; Prior surgery; Surgery type: Ear tubes; Additional info: Right sided neck and ear pain with swelling TECHNIQUE: Axial computed tomography images of the neck without intravenous contrast. All CT scans at this facility use at least one of these dose optimization techniques: automated exposure control; mA and/or kV adjustment per patient size (includes targeted exams where dose is matched to clinical indication); or iterative reconstruction. Coronal and sagittal reformatted images were created and reviewed. COMPARISON: No relevant prior studies available. FINDINGS: Oral cavity: Metallic tongue piercing is noted. Oropharynx: Normal. No tonsillar enlargement. Hypopharynx: Normal. No retropharyngeal collections. Larynx: Normal. Normal epiglottis. Trachea: Normal. Retropharyngeal space: Normal. Submandibular/parotid glands: Normal. Glands are normal in size. No mass. Thyroid: Normal. No enlarged or calcified nodules. Bones/joints: No acute fracture. No suspicious osseous lesions. Soft tissues: Normal. Vasculature: Normal. Visualized portions are patent. Lymph nodes: Normal. No lymphadenopathy. Sinuses: Air-fluid level in the single sphenoid sinus. Mucous retention cyst left maxillary sinus. Remaining paranasal sinuses are clear. Lung apices: Normal as visualized. Tubes, lines and devices: Partially visualized left upper chest pacemaker generator. IMPRESSION: Sphenoid paranasal sinusitis possibly correlating with patient's symptomatology.
[2018-02-19 19:23] LABS: EGFR Non-African American 103.3 (>60)
[2018-02-19] MEDS ORDERED: Levofloxacin TAB* 500 MG PO ONE (19:57)
[2018-02-19 20:35] VITALS: BP 110/65
== END 2018-02-19 20:35 | disposition home or self-care (01) ==
LOC: ED 16:12
DX: J32.9 Chronic sinusitis, unspecified (principal); Z87.891 Personal history of nicotine dependence
CPT/HCPCS: 36415; 70450; 70490; 80053; 84484; 85025; 86140; 87491; 87591; 99282

== ENCOUNTER 2018-02-28 18:36 | Emergency (ER) | payer MEDICAID ==
--- NOTE | 2018-02-28 19:40 | ED ---
HPI Chest Pain - HPI Summary HPI Summary: Patient is a 27 y/o M w/ c/o sharp, left-sided chest pain w/ sudden onset at 1800 today. Patient was watching TV when pain onset. Deep breaths are noted to aggravate Sx, shallow breathing alleviates Sx. Patient notes nausea but denies vomiting, fever, and respiratory Sx. Patient has Hx of cardiac arrest in March 2016, AICD was placed in his chest in May 2016. Patient reports that he may have had an AICD shock previously, but he is unsure. Patient states he takes magnesium, zoloft, and carvedilol. Seat Mender is Dr. Madera in [place]. Patient has an appointment for a stress test on March 17. Last stress test was in August. Patient believes his cardiac arrest was caused by hypertrophic cardiomyopathy but he reports being unsure of Dx. Chest pain is still present in the room, but is reported to have slightly lessened. Patient took a cab to [facility]. He reports Sx of SOB, chest pain, and syncope during his cardiac arrest in March 2016. In room, pulse is 57, 98 o2, and 104/63 BP. On triage, pain is rated 6/10. FMHx of cardiac disease is reported. Home medications and allergies are reviewed. - History of Current Complaint Chief Complaint: EDChestPainROMI Time Seen by Provider: 02/28/18 19:22 Hx Obtained From: Patient Onset/Duration: Started Hours Ago - onset 1800, Still Present Timing: Constant, Lasting Hours - onset 1800 Initial Severity: Severe Current Severity: Moderate - 6/10 Pain Intensity: 6 Pain Scale Used: 0-10 Numeric - 6/10 Chest Pain Location: Discrete at: - left side Character: Sharp/Stabbing Aggravating Factor(s): Other: - deep breaths Alleviating Factor(s): Other: - shallow breaths Associated Signs and Symptoms: Positive: Chest Pain, Nausea, Other: - Negative: respiratory Sx. Negative: Fever, Vomiting - Allergy/Home Medications Allergies/Adverse Reactions: Allergies Allergy/AdvReac Type Severity Reaction Status Date / Time sertraline [From Zoloft] Allergy GI Upset Verified 02/28/18 19:52 Home Medications: Home Medications Fluticasone NASAL SPRAY 50MCG* [Flonase NASAL SPRAY 50MCG*] 2 spray BOTH NARES DAILY PRN 02/28/18 [History Confirmed 02/28/18] Sertraline* 25 mg PO BEDTIME 02/28/18 [History Confirmed 02/28/18] PMH/Surg Hx/FS Hx/Imm Hx Endocrine/Hematology History: Denies: Hx Anticoagulant Therapy Cardiovascular History: Reports: Hx Pacemaker/ICD, Other Cardiovascular Problems /Disorders - long QT GI History: Reports: Other GI Disorders - elevated LFT Sensory History: Denies: Hx Legally Blind, Hx Deafness Opthamlomology History: Denies: Hx Legally Blind Neurological History: Reports: Other Neuro Impairments/Disorders - scoliosis, Psychiatric History: Reports: Hx Anxiety, Hx Depression - Surgical History Surgery Procedure, Year, and Place: TUBES IN EARS - Immunization History Date of Influenza Vaccine: has not received Infectious Disease History: No Infectious Disease History: Denies: Traveled Outside the [place] in Last 30 Days - Family History Known Family History: Positive: Cardiac Disease - Social History Alcohol Use: None Hx Substance Use: No Substance Use Type: Reports: None Hx Tobacco Use: Yes Smoking Status (MU): Former Smoker Type: Cigarettes Review of Systems Negative: Fever - on vitals, temp is 99 F Positive: Chest Pain Positive: Other - NEGATIVE: respiratory Sx Positive: Nausea. Negative: Vomiting All Other Systems Reviewed And Are Negative: Yes Physical Exam - Summary Physical Exam Summary: VITAL SIGNS: Reviewed. GENERAL: Patient is a well-developed and nourished male who is lying comfortable in the stretcher. Patient is not in any acute respiratory distress. HEAD AND FACE: No signs of trauma. No ecchymosis, hematomas or skull depressions. No sinus tenderness. EYES: PERRLA, EOMI x 2, No injected conjunctiva, no nystagmus. EARS: Hearing grossly intact. Ear canals and tympanic membranes are within normal limits. MOUTH: Oropharynx within normal limits. NECK: Supple, trachea is midline, no adenopathy, no JVD, no carotid bruit, no c- spine tenderness, neck with full ROM. CHEST: Symmetric, no tenderness at palpation LUNGS: Clear to auscultation bilaterally. No wheezing or crackles. CVS: Regular rate and rhythm, S1 and S2 present, no murmurs or gallops appreciated. ABDOMEN: Soft, non-tender. No signs of distention. No rebound no guarding, and no masses palpated. Bowel sounds are normal. EXTREMITIES: FROM in all major joints, no edema, no cyanosis or clubbing. NEURO: Alert and oriented x 3. No acute neurological deficits. Speech is normal and follows commands. SKIN: Dry and warm Triage Information Reviewed: Yes Vital Signs On Initial Exam: Initial Vitals Temp Pulse Resp BP Pulse Ox 99 F 66 19 95/49 100 02/28/18 18:43 02/28/18 18:43 02/28/18 18:43 02/28/18 18:43 02/28/18 18:43 Vital Signs Reviewed: Yes Diagnostics - Vital Signs Vital Signs Temp Pulse Resp BP Pulse Ox 02/28/18 19:05 57 20 104/63 96 02/28/18 19:04 57 12 99 02/28/18 18:43 99 F 66 19 95/49 100 - Laboratory Result Diagrams: 02/28/18 19:56 02/28/18 19:56 Lab Statement: Any lab studies that have been ordered have been reviewed, and results considered in the medical decision making process. - Radiology CXR Xray Interpretation: No Acute Changes Radiology Interpretation Completed By: ED Physician - no acute process, pending official report - EKG 1858 Cardiac Rate: NL - rate of 60 bpm EKG Rhythm: Sinus Rhythm EKG Interpretation: left axis deviation, no ischemic changes Re-Evaluation - Re-Evaluation First Eval Re-Evaluation Time: 23:45 Comment: Patient was discharged to home and instructed to follow up with his salvage diver on Saturday. Patient understands and is agreeable with this plan. Chest Pain Course/Dx - Course Assessment/Plan: Patient is a 27 y/o M w/ c/o sharp, left-sided chest pain w/ sudden onset at 1800 today. Patient was watching TV when pain onset. Deep breaths are noted to aggravate Sx, shallow breathing alleviates Sx. Patient notes nausea but denies vomiting, fever, and respiratory Sx. Patient has Hx of cardiac arrest in March 2016, AICD was placed in his chest in May 2016. Patient reports that he may have had an AICD shock previously, but he is unsure. Patient states he takes magnesium, zoloft, and carvedilol. Seat Mender is Dr. Madera in [place]. Patient has an appointment for a stress test on March 17. Last stress test was in August. Patient believes his cardiac arrest was caused by hypertrophic cardiomyopathy but he reports being unsure of Dx. Chest pain is still present in the room, but is reported to have slightly lessened. Patient took a cab to [facility]. He reports Sx of SOB, chest pain, and syncope during his cardiac arrest in March 2016. In room, pulse is 57, 98 o2, and 104/63 BP. On triage, pain is rated 6/10. Physical exam revealed no abnormal findings. During ED course, patient was given 324 mg PO ONCE, morphine 2 mg IV ED ONCE. CXR showed no acute process. EKG showed normal sinus rate and rhythm w/ 60 BPM, left axis deviation, and no ischemic changes. Patient had a heart score of 1. Trop was negative. INR was 1.1, Hct was 41. Patient was discharged to home and instructed to follow up with his salvage diver on Saturday. Patient understands and is agreeable with this plan. Dx of atypical chest pain. - Diagnoses Provider Diagnoses: Atypical chest pain Discharge - Sign-Out/Discharge Documenting (check all that apply): Patient Departure - discharge - Discharge Plan Condition: Stable Disposition: HOME Patient Education Materials: Chest Pain (ED) Referrals: Madelaine Bell MD [Primary Care Provider] - 3 Days Additional Instructions: RETURN TO THE EMERGENCY DEPARTMENT FOR CHANGING OR WORSENING SYMPTOMS. FOLLOW UP WITH YOUR SERICULTURIST ON SATURDAY. - Attestation Statements Document Initiated by Scribe: Yes Documenting Scribe: Manolo Scales Provider For Whom Minor is Documenting (Include Credential): Kellen Cruz MD Scribe Attestation: IManolo, scribed for Kellen Cruz MD on 03/01/18 at 0015.
[2018-02-28] MEDS ORDERED: Aspirin 81 mg CHEW TAB* 81 MG TAB.CHEW PO ONE (19:50)
[2018-02-28] MEDS ORDERED: Morphine INJ* 4 MG/ML 1 ML SYRINGE (NEW SYRINGE VERSION) IV ONE (19:52)
[2018-02-28 20:06] LABS: ABS Basophils 0.1 10^3/ul (0-0.2); ABS Eosinophils 0 10^3/ul (0-0.6); ABS Lymphocytes 1.7 10^3/ul (1.0-4.8); ABS Monocytes 0.6 10^3/ul (0-0.8); ABS Neutrophils 8.2 10^3/ul (1.5-7.7); ABS Nucleated RBC 0 10^3/ul; Eosinophil % 0.5 % (0-6); Hematocrit 41 % (42-52); Lymphocyte % 15.6 % (25-47); Mean Corpuscular HGB Conc 34 g/dl (31-36); Mean Corpuscular Hemoglobin 29 pg (27-31); Mean Corpuscular Volume 86 fL (80-94); Mean Platelet Volume 7.6 um3 (7.4-10.4); Nucleated Red Blood Cells % 0.1; Platelet Count 166 10^3/ul (150-450); Red Cell Distribution Width 13 % (10.5-15); White Blood Count 10.7 10^3/ul (3.5-10.8)
[2018-02-28 20:15] LABS: INR 1.1 (0.77-1.02)
[2018-02-28 20:26] LABS: EGFR Non-African American 77.6 (>60)
[2018-03-01 00:21] VITALS: BP 112/71
--- NOTE | 2018-03-01 07:47 | RAD ---
HISTORY: CP COMPARISONS: February 14, 2018 VIEWS: 1: frontal AP view of the chest at 8:00 PM FINDINGS: LINES AND TUBES: A left-sided pacemaker is noted. CARDIOMEDIASTINAL SILHOUETTE: The cardiomediastinal silhouette is normal for portable technique. PLEURA: The costophrenic angles are sharp. No pleural abnormalities are noted. LUNG PARENCHYMA: The lungs are clear. ABDOMEN: The upper abdomen is clear. There is no subphrenic gas. BONES AND SOFT TISSUES: No bone or soft tissue abnormalities are noted. IMPRESSION: NO ACTIVE CARDIOPULMONARY DISEASE. R1
== END 2018-03-01 00:21 | disposition home or self-care (01) ==
LOC: ED 18:36
DX: R07.9 Chest pain, unspecified (principal); R11.0 Nausea; Z95.0 Presence of cardiac pacemaker; Z87.891 Personal history of nicotine dependence
CPT/HCPCS: 36415; 71045; 80053; 82550; 82553; 83735; 84484; 85025; 85610; 85730; 93005; 96374; 99283; A9270-GY; J2270

== ENCOUNTER 2018-03-01 15:25 | Emergency (ER) | payer MEDICAID ==
[2018-03-01] MEDS ORDERED: Amoxicillin/Clavulanate TAB* 875 MG PO ONE (16:09)
--- NOTE | 2018-03-01 16:14 | ED ---
Complex/Multi-Sys Presentation - HPI Summary HPI Summary: Pt is a 27 year old M presenting to [facility] with a chief complaint of right-sided facial swelling that he woke up with this morning. The pt is also experiencing associated R-sided jaw pain. The patient rates the pain 4/10 in severity. Denies : testicular swelling. The Pt has an internal defibrillator due to an irregular heartbeat since 2016. Denies recreational drug use. - History Of Current Complaint Chief Complaint: EDGeneral Hx Obtained From: Patient Onset/Duration: Sudden Onset, Still Present Timing: Constant Severity Currently: Moderate Severity Initially: Moderate Location: Pain At: - R-side Jaw Associated Signs And Symptoms: Positive: Edema - R-side face - Allergies/Home Medications Allergies/Adverse Reactions: Allergies Allergy/AdvReac Type Severity Reaction Status Date / Time sertraline [From Zoloft] Allergy GI Upset Verified 02/28/18 19:52 PMH/Surg Hx/FS Hx/Imm Hx Previously Healthy: No Endocrine/Hematology History: Denies: Hx Anticoagulant Therapy Cardiovascular History: Reports: Hx Pacemaker/ICD, Other Cardiovascular Problems /Disorders - long QT GI History: Reports: Other GI Disorders - elevated LFT Sensory History: Denies: Hx Legally Blind, Hx Deafness Opthamlomology History: Denies: Hx Legally Blind Neurological History: Reports: Other Neuro Impairments/Disorders - scoliosis, Psychiatric History: Reports: Hx Anxiety, Hx Depression - Surgical History Surgery Procedure, Year, and Place: TUBES IN EARS - Immunization History Date of Influenza Vaccine: has not received Infectious Disease History: No Infectious Disease History: Denies: Traveled Outside the [place] in Last 30 Days - Family History Known Family History: Positive: Cardiac Disease - Social History Alcohol Use: None Hx Substance Use: No Substance Use Type: Reports: None Hx Tobacco Use: Yes Smoking Status (MU): Former Smoker Type: Cigarettes Review of Systems Constitutional: Negative Negative: Fever Negative: Blurred Vision Positive: Dental Pain - and swelling, R-side. Negative: Sore Throat, Ear Ache Negative: Chest Pain Negative: Shortness Of Breath Negative: Vomiting, Diarrhea, Nausea Positive: Edema - Right side of face Negative: Rash, Bruising Negative: Headache Negative: Anxious, Depressed All Other Systems Reviewed And Are Negative: No Physical Exam - Summary Physical Exam Summary: Normal Physical Exam: Appearance: Alert, conversive, nontoxic appearing. Skin: Warm, dry, no mottling, no rashes, no contusions. Multiple tattoos. HEENT: EOMI, PERRL, moist mucous membranes DENTAL: Poor dentition. Multiple fillings and plaque build-up. Swelling over R parotid gland. Neck: No masses on the neck, supple Respiratory: Clear to auscultation, breath sounds present, no rales, no rhonchi , no wheezes Cardiovascular: RRR, pulses are symmetrical in both lower and upper extremities Abdomen: Soft, non-tender Bowel Sounds: Present Musculoskeletal: No CVA tenderness, no obvious deformity, moving all extremities in a grossly normal manner Neurological: A&Ox3, CN II-XII Intact, moving all extremities symmetrically Psychiatric: Normal affect and mood Triage Information Reviewed: Yes Vital Signs On Initial Exam: Initial Vitals Temp Pulse Resp BP Pulse Ox 97.0 F 52 16 109/64 98 03/01/18 15:28 03/01/18 15:28 03/01/18 15:28 03/01/18 15:28 03/01/18 15:28 Vital Signs Reviewed: Yes Diagnostics - Vital Signs Vital Signs Temp Pulse Resp BP Pulse Ox 03/01/18 15:28 97.0 F 52 16 109/64 98 - Laboratory Lab Statement: Any lab studies that have been ordered have been reviewed, and results considered in the medical decision making process. Complex Multi-Symp Course/Dx Course Of Treatment: Pt is a 27 year old M presenting with R-sided facial swelling and jaw pain onset this AM. Upon PE, pt has poor dentition, multiple fillings, and swollen R parotid gland, possibly blocked. Upon discharge, pt states is not allergic to penicillin but that his girlfriend is, and he does not want penicillin in the house and is requesting a different Rx. I will call the pharmacy and prescribe a different ABX. - Diagnoses Provider Diagnoses: Parotitis Discharge - Sign-Out/Discharge Documenting (check all that apply): Patient Departure - DC - Discharge Plan Condition: Stable Disposition: HOME Prescriptions: Amoxicillin/Clavulanate TAB* [Augmentin TAB 875*] 875 mg PO BID #14 tab MDD 2 Patient Education Materials: Parotid Duct Obstruction (ED), Mumps in Adults (ED ) Referrals: Madelaine Bell MD [Primary Care Provider] - Additional Instructions: Take the antibiotic as instructed. return if worse or any new symptoms. Take tylenol and motrin for pain. Please follow up with your primary care physician in 2-3 days. Suck on lemon drops or sour candies as you may also have a block parotid gland. - Attestation Statements Document Initiated by Scribe: Yes Documenting Scribe: Terrance Keating Provider For Whom Scribe is Documenting (Include Credential): Dr. Sara Ag MD Scribe Attestation: I, Terrance Keating, scribed for Dr. Sara Ag MD on 03/01/18 at 1656.
[2018-03-01 16:29] VITALS: BP 112/72
== END 2018-03-01 16:26 | disposition home or self-care (01) ==
LOC: ED 15:25
DX: K11.20 Sialoadenitis, unspecified (principal); K08.89 Other specified disorders of teeth and supporting structures; R60.1 Generalized edema; Z87.891 Personal history of nicotine dependence
CPT/HCPCS: 99282; A9270-GY

== ENCOUNTER 2018-03-09 15:05 | Emergency (ER) | payer MEDICAID ==
[2018-03-09] MEDS ORDERED: Albuterol (2.5 MG) 0.5 % CONC 2.5 MG/0.5 ML NEB.SOLN (ICU and ED only) INH ONE (15:31)
[2018-03-09] MEDS ORDERED: predniSONE TAB* 20 MG PO ONE (15:31)
[2018-03-09] MEDS ORDERED: Albuterol 2.5 MG/3 ML NEB.SOL* (0.083%) INH ONE (15:43)
--- NOTE | 2018-03-09 15:52 | ED ---
Complex/Multi-Sys Presentation - HPI Summary HPI Summary: Patient is a 27 y/o M w/ c/o a cough for the past two days. Fevers, rhinorrhea, sinus pressure, and sore throat are denied. Cough is productive and phlegm is described as dark gómez with black spots. Patient has not smoked since 2015. No other sick contacts noted. No recent travel outside of the country, no contact with anyone with tuberculosis. Patient reports taking Carvedilol and magnesium supplements. On triage, pain is denied, nothing is noted to aggravate/alleviate Sx. - History Of Current Complaint Chief Complaint: EDUpperRespComplaint Time Seen by Provider: 03/09/18 15:14 Hx Obtained From: Patient Onset/Duration: Lasting Days - onset two days ago, Still Present Timing: Constant, Days - two days Severity Currently: None - pain is denied Aggravating Factor(s): nothing Alleviating Factor(s): nothing Associated Signs And Symptoms: Positive: Cough - productive, Other - NEGATIVE: sore throat, sinus pressure, rhinorrhea. Negative: Fever - Allergies/Home Medications Allergies/Adverse Reactions: Allergies Allergy/AdvReac Type Severity Reaction Status Date / Time sertraline [From Zoloft] Allergy GI Upset Verified 03/09/18 15:08 PMH/Surg Hx/FS Hx/Imm Hx Endocrine/Hematology History: Denies: Hx Anticoagulant Therapy Cardiovascular History: Reports: Hx Pacemaker/ICD, Other Cardiovascular Problems /Disorders - long QT GI History: Reports: Other GI Disorders - elevated LFT Sensory History: Denies: Hx Legally Blind, Hx Deafness Opthamlomology History: Denies: Hx Legally Blind Neurological History: Reports: Other Neuro Impairments/Disorders - scoliosis, Psychiatric History: Reports: Hx Anxiety, Hx Depression - Surgical History Surgery Procedure, Year, and Place: TUBES IN EARS - Immunization History Date of Influenza Vaccine: has not received Infectious Disease History: No Infectious Disease History: Denies: Traveled Outside the [place] in Last 30 Days - Family History Known Family History: Positive: Cardiac Disease - Social History Alcohol Use: None Hx Substance Use: No Substance Use Type: Reports: None Hx Tobacco Use: Yes Smoking Status (MU): Former Smoker Type: Cigarettes Review of Systems Negative: Fever Positive: Other - NEGATIVE: sinus pressure . Negative: Sore Throat, Nasal Discharge - rhinorrhea Positive: Cough - productive All Other Systems Reviewed And Are Negative: Yes Physical Exam - Summary Physical Exam Summary: Appearance: Well appearing, no pain distress Skin: warm, dry, reflects adequate perfusion; chronic appearing dermititis to shoulders and neck Head/face: normal Eyes: EOMI, PAVITHRA ENT: mucous membranes moist; throat and nose is clear; scarring of both ears. Neck: supple, non-tender Respiratory: diminished breath sounds, bronchial breath sounds at the periphery. No definite wheezes, rales or rhonci Cardiovascular: RRR, pulses symmetrical Abdomen: non-tender, soft Bowel Sounds: present Musculoskeletal: normal, strength/ROM intact Neuro: normal, sensory motor intact, A&Ox3 Triage Information Reviewed: Yes Vital Signs On Initial Exam: Initial Vitals Temp Pulse Resp BP Pulse Ox 98.1 F 60 16 109/68 98 03/09/18 15:08 03/09/18 15:08 03/09/18 15:08 03/09/18 15:08 03/09/18 15:08 Vital Signs Reviewed: Yes Diagnostics - Vital Signs Vital Signs Temp Pulse Resp BP Pulse Ox 03/09/18 15:08 98.1 F 60 16 109/68 98 - Laboratory Lab Statement: Any lab studies that have been ordered have been reviewed, and results considered in the medical decision making process. - Radiology CXR Xray Interpretation: No Acute Changes Radiology Interpretation Completed By: Radiologist - IMPRESSION: #. Elevated lung volumes may reflect obstructive lung disease or simply exuberant inspiratory effort for examination. #. No acute cardiopulmonary process evident. This report was reviewed by ed physician. Re-Evaluation - Re-Evaluation First Eval Re-Evaluation Time: 17:23 Change: Improved Comment: Patient reports improvement in Sx after breathing treatment. Labs and CXR were discussed. Patient will be discharged to home. Follow up treatment was discussed. Patient will be discharged to home and follow with PCP. Complex Multi-Symp Course/Dx Course Of Treatment: Patient presents for cough and mild wheezing. X-ray is negative. Former smoker. Improved here with breathing treatment. Steroids started. Continue same outpatient with follow-up with primary care physician. - Diagnoses Differential Diagnoses/HQI/PQRI: Other - Pneumonia versus bronchitis Provider Diagnoses: Acute bronchitis Discharge - Sign-Out/Discharge Documenting (check all that apply): Patient Departure - discharge - Discharge Plan Condition: Stable Disposition: HOME Prescriptions: Albuterol HFA INHALER* [Ventolin HFA Inhaler*] 2 puff INH Q4H PRN #1 mdi PRN Reason: Sob/Wheezing guaiFENesin [Mucinex] 600 mg PO BID PRN #14 tab.er.12h PRN Reason: Congestion predniSONE TAB* [Deltasone TAB*] 50 mg PO DAILY #4 tab Patient Education Materials: Acute Bronchitis (ED) Referrals: Madelaine Bell MD [Primary Care Provider] - Additional Instructions: Humidifier while sleeping. Avoid smoke and smokers. Return with fever greater than 100.4, difficulty breathing, worse, new symptoms or other concerns. Call first thing in the morning to schedule follow up with your doctor. - Billing Disposition and Condition Condition: STABLE Disposition: Home - Attestation Statements Document Initiated by Minor: Yes Documenting Scribe: Manolo Scales Provider For Whom Minor is Documenting (Include Credential): Mukul Romano MD Scribe Attestation: Manolo Pace , scribed for Mukul Romano MD on 03/09/18 at 1815. Scribe Documentation Reviewed: Yes Provider Attestation: The documentation as recorded by the Manolo sam accurately reflects the service I personally performed and the decisions made by me, Mukul Romano MD
--- NOTE | 2018-03-09 16:47 | RAD ---
INDICATION: Productive cough. History of tobacco use. COMPARISON: February 28, 2018 TECHNIQUE: Dual energy PA and routine lateral views of the chest were obtained. REPORT: Elevated lung volumes. No focal pulmonary lesion, compelling alveolar consolidation, pleural effusion, pneumothorax. RIGHT atrial and RIGHT ventricular level pacemaker leads. The heart, pulmonary vasculature, and mediastinal contours are unremarkable. Unremarkable soft tissue contours and osseous structures. IMPRESSION: #. Elevated lung volumes may reflect obstructive lung disease or simply exuberant inspiratory effort for examination. #. No acute cardiopulmonary process evident.
[2018-03-09 17:38] VITALS: BP 99/64
== END 2018-03-09 17:36 | disposition home or self-care (01) ==
LOC: ED 15:05
DX: J40 Bronchitis, not specified as acute or chronic (principal); Z87.891 Personal history of nicotine dependence; Z88.8 Allergy status to other drugs, medicaments and biological substances
CPT/HCPCS: 71046; 99282; J7512

== ENCOUNTER 2018-04-18 13:53 | Emergency (ER) | payer MEDICAID ==
[2018-04-18 14:24] LABS: ABS Basophils 0.1 10^3/ul (0-0.2); ABS Eosinophils 0.1 10^3/ul (0-0.6); ABS Lymphocytes 1.7 10^3/ul (1.0-4.8); ABS Monocytes 0.5 10^3/ul (0-0.8); ABS Neutrophils 4.4 10^3/ul (1.5-7.7); ABS Nucleated RBC 0 10^3/ul; Eosinophil % 1.8 % (0-6); Hematocrit 40 % (42-52); Hemoglobin 13.2 g/dl (14.0-18.0); Lymphocyte % 24.7 % (25-47); Mean Corpuscular HGB Conc 33 g/dl (31-36); Mean Corpuscular Hemoglobin 29 pg (27-31); Mean Corpuscular Volume 87 fL (80-94); Mean Platelet Volume 7.9 fL (7.4-10.4); Nucleated Red Blood Cells % 0.1; Platelet Count 139 10^3/ul (150-450); Red Cell Distribution Width 14 % (10.5-15); White Blood Count 6.8 10^3/ul (3.5-10.8)
--- OUTSIDE RECORDS SUMMARY | 2018-04-18 14:33 | XMS REPORT ---
:1990 External Reference #:[id number] Author Organization [facility] 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 Unavailable Gifty Danielle PNP-BC, COLLATERAL SPECIALIST, Ibclc Primary Care Physician Unavailable Payers Type Date Identification Numbers Payment Provider Subscriber Medicaid Policy Number: [id number] Medicaid Nba Locke PayID: [id number] [address] [place] [address] Problems Date Description Provider Status Onset: 06/19/2016 Electrocardiogram abnormal Shereen Baeza, Active MSN, COLLATERAL SPECIALIST Onset: 04/16/2018 Anxiety state Gifty Danielle PNP-BC, Active COLLATERAL SPECIALIST, [place]cl[place] Onset: 04/16/2018 Moderate recurrent major depression Gifty Danielle PNP-BC, Active COLLATERAL SPECIALIST, Ibclc Onset: 04/16/2018 Posttraumatic stress disorder Gifty Danielle PNP-BC, Active COLLATERAL SPECIALIST, Ibclc Family History Date Family Member(s) Problem(s) Comments Father No Current Problems Mother Gastroesophageal Reflux Disease (GERD) : (age 55 Grandfather due to Heart Attack 12 Years) Grandfather due to Stroke () - 3 Maternal Grandfather due to RI () : (age 65 Maternal Grandmother due to Liver Disease Years) Social History Type Date Description Comments Marital Status Single Lives With Mother Home Environment Lives With Mother Diet Patient follows no dietary restrictions Occupation Unemployed Work Status Unemployed Cigarette Use Former Cigarette Smoker 1-5 SMOKED FOR TEN YEARS Cigarettes Daily Smokeless Tobacco Never Used Smokeless Tobacco ETOH Use Denies alcohol use Recreational Drug Use Marijuana 1 bowl a day Smoking Patient is a former smoker Daily Caffeine Consumes on average 2 cups of regular coffee per day Daily Caffeine Consumes on average 8oz of soda per day Allergies, Adverse Reactions, Alerts Date Description Reaction Status Severity Comments 12/03/2016 Zoloft active 04/23/2016 NKDA inactive Medications Medication Date Status Form Strength Qnty SIG Indications Ordering Provider Sertraline HCL 04/16/ Active Tablets 100mg 30tabs 1 by F41.9 Lolis, 2017 mouth Gifty, every PNP-BC, day COLLATERAL SPECIALIST, Ibclc Magnesium Oxide 11/06/ Active Tablets 400mg 90tabs 1 by Uli 2016 mouth Jovanny Ayon every MAnge, [facility] day Carvedilol 11/06/ Active Tablets 3.125mg 180tab take one Uli 2016 s tablet Jovanny Ayon, by mouth M.Eva, [facility] twice a day Metronidazole 11/28/ Hx Tablets 500mg qs 4 tabs Lolis, 2017 - by mouth Gifty, 11/30/ once PNP-BC, 2018 COLLATERAL SPECIALIST, Ibclc Sertraline HCL 04/11/ Hx Tablets 50mg 30tabs 1 by F41.9 Lolis 2016 - mouth Gifty, 04/16/ every PNP-BC, 2018 day COLLATERAL SPECIALIST, Ibclc Fexofenadine 02/19/ Hx Tablets 180mg 90tabs 1 by J30.9 Lolis, HCL 2016 mouth at Gifty, night PNP-BC, COLLATERAL SPECIALIST, Ibclc Fluticasone 02/19/ Hx Suspension 50mcg/Act 16gm 2 sprays J30.9 Lolis, Propionate 2016 each veronika Durbin PNP-BC, once a COLLATERAL SPECIALIST, Ibclc day Azithromycin 02/19/ Hx Tablets 500mg 6tabs 2 tabs H66.92 Lolis 2017 - by mouth Gifty, 02/25/ today PNP-BC, 2017 and 1 COLLATERAL SPECIALIST, Ibclc tab by mouth for 4 more days Mavyret 02/14/ Hx Tablets 100-40mg 168tab 3 tab by B18.2 Halle 2017 razia Mccormick MD every day before meals No Active 04/24/ Hx Unknown Medications 2015 - 2016 Ondansetron HCL 09/23/ Hx Tablets 8mg 2tabs 1 tab by Bell, 2013 mouth Madelaine, every 6 MD hours as needed Sertraline HCL 00// Hx Tablets 25mg 30tabs 1 po qd Unknown 0000 Medications Administered in Office Medication Date Status Form Strength Qnty SIG Indications Ordering Provider PPD Administered Injection Gregorio Danielle, PNP-BC, COLLATERAL SPECIALIST, Ibclc Immunizations CPT Code Status Date Vaccine Lot # [id number] Given 04/16/2018 Influenza Virus Vaccine, Quadrivalent, 36 Mos+, [id number] Vital Signs Date Vital Result Comment 04/16/2018 BP Systolic Sitting Left Arm 128 mmHg BP Diastolic Sitting Left Arm 62 mmHg Body Temperature 99.4 F Heart Rate 64 /min Weight 123.00 lb O2 % BldC Oximetry 98 % 11/26/2017 BP Systolic 122 mmHg BP Diastolic 78 mmHg Heart Rate 98 /min Respiratory Rate 17 /min Height 68 inches 5'8" Weight 120.00 lb BMI (Body Mass Index) 18.2 kg/m2 BSA (Body Surface Area) 1.64 m2 [place] body weight in kilograms 70 O2 % BldC Oximetry 97 % 07/02/2017 BP Systolic Sitting Left Arm 100 mmHg BP Diastolic Sitting Left Arm 60 mmHg Heart Rate 50 /min Respiratory Rate 16 /min Height 68 inches 5'8" Weight 118.00 lb BMI (Body Mass Index) 17.9 kg/m2 BSA (Body Surface Area) 1.63 m2 [place] body weight in kilograms 70 04/11/2017 BP Systolic 92 mmHg BP Diastolic 68 mmHg Body Temperature 97.3 F Heart Rate 59 /min Height 68 inches 5'8" Weight 129.00 lb BMI (Body Mass Index) 19.6 kg/m2 BSA (Body Surface Area) 1.70 m2 [place] body weight in kilograms 70 O2 % BldC Oximetry 96 % 03/26/2017 BP Systolic Sitting Left Arm 114 mmHg BP Diastolic Sitting Left Arm 70 mmHg Heart Rate 59 /min Respiratory Rate 16 /min Height 68 inches 5'8" Weight 118.00 lb BMI (Body Mass Index) 17.9 kg/m2 BSA (Body Surface Area) 1.63 m2 [place] body weight in kilograms 70 02/19/2017 BP Systolic 116 mmHg BP Diastolic 68 mmHg Body Temperature 98.8 F Heart Rate 73 /min Height 68 inches 5'8" Weight 111.00 lb BMI (Body Mass Index) 16.9 kg/m2 BSA (Body Surface Area) 1.59 m2 [place] body weight in kilograms 70 O2 % BldC Oximetry 97 % 02/14/2017 BP Systolic Sitting Left Arm 100 mmHg BP Diastolic Sitting Left Arm 70 mmHg Heart Rate 54 /min Respiratory Rate 16 /min Height 68 inches 5'8" Weight 114.00 lb BMI (Body Mass Index) 17.3 kg/m2 BSA (Body Surface Area) 1.61 m2 [place] body weight in kilograms 70 12/11/2016 BP Systolic Sitting Left Arm 118 mmHg BP Diastolic Sitting Left Arm 76 mmHg Heart Rate 69 /min Respiratory Rate 16 /min Height 68 inches 5'8" Weight 117.00 lb BMI (Body Mass Index) 17.8 kg/m2 BSA (Body Surface Area) 1.63 m2 [place] body weight in kilograms 70 12/03/2016 BP Systolic 83 mmHg BP Diastolic 50 mmHg Body Temperature 97.7 F Heart Rate 60 /min Height 66 inches 5'6" Weight 120.00 lb BMI (Body Mass Index) 19.4 kg/m2 BSA (Body Surface Area) 1.61 m2 [place] body weight in kilograms 64 06/19/2016 BP Systolic Sitting Right Arm 128 mmHg BP Diastolic Sitting Right Arm 84 mmHg Heart Rate 68 /min Height 66 inches 5'6" Weight 123.00 lb BMI (Body Mass Index) 19.9 kg/m2 BSA (Body Surface Area) 1.63 m2 04/24/2016 BP Systolic Sitting Left Arm 121 mmHg BP Diastolic Sitting Left Arm 74 mmHg Heart Rate 67 /min Height 66 inches 5'6" Weight 120.00 lb BMI (Body Mass Index) 19.4 kg/m2 BSA (Body Surface Area) 1.61 m2 09/23/2012 BP Systolic 96 mmHg BP Diastolic 68 mmHg Body Temperature 99.1 F Height 66 inches 5'6" Weight 127.00 lb 01/24/2011 Height 66 inches 5'6" Weight 124.00 lb 01/24/2011 BP Systolic 98 mmHg BP Diastolic 78 mmHg Heart Rate 64 /min Respiratory Rate 14 /min Height 66 inches 5'6" Weight 124.00 lb Results Test Date Test Result H/L Range Note Laboratory test 02/28/2018 Troponin I 0.00 ng/mL <0.04 finding GC/Chlamydia Amplified 02/19/2018 Chlamydia trachomatis Negative Negative Rna Rna Neisseria gonorrhoeae (GC) Rna Negative Negative Laboratory test finding 02/19/2018 C Reactive Protein 1.54 mg/L <8.01 Troponin I 0.00 ng/mL <0.04 Comp Metabolic Panel 02/19/2018 Sodium 138 mmol/L 135-145 Potassium 4.0 mmol/L 3.5-5.0 Chloride 105 mmol/L 101-111 Co2 Carbon Dioxide 30 mmol/L 22-32 Anion Gap 3 mmol/L 2-11 Glucose 91 mg/dL 70-100 Blood Urea Nitrogen 18 mg/dL 6-24 Creatinine 0.89 mg/dL 0.67-1.17 BUN/Creatinine Ratio 20.2 High 8-20 Calcium 8.8 mg/dL 8.6-10.3 Total Protein 6.6 g/dL 6.4-8.9 Albumin 4.2 g/dL 3.2-5.2 Globulin 2.4 g/dL 2-4 Albumin/Globulin Ratio 1.8 1-3 Total Bilirubin 0.30 mg/dL 0.2-1.0 Alkaline Phosphatase 65 U/L 34-104 Alt 9 U/L 7-52 Ast 16 U/L 13-39 Egfr Non- 103.3 >60 Egfr 125.0 >60 1 CBC Auto Diff 02/19/2018 White Blood Count 7.8 10^3/uL 3.5-10.8 Red Blood Count 4.63 10^6/uL 4.00-5.40 Hemoglobin 13.3 g/dL Low 14.0-18.0 Hematocrit 40 % Low 42-52 Mean Corpuscular Volume 86 fL 80-94 Mean Corpuscular Hemoglobin 29 pg 27-31 Mean Corpuscular HGB Conc 33 g/dL 31-36 Red Cell Distribution Width 13 % 10.5-15 Platelet Count 168 10^3/uL 150-450 Mean Platelet Volume 7.8 um3 7.4-10.4 Abs Neutrophils 4.6 10^3/uL 1.5-7.7 Abs Lymphocytes 2.3 10^3/uL 1.0-4.8 Abs Monocytes 0.6 10^3/uL 0-0.8 Abs Eosinophils 0.2 10^3/uL 0-0.6 Abs Basophils 0.1 10^3/uL 0-0.2 Abs Nucleated RBC 0 10^3/uL Granulocyte % 59.0 % 38-83 Lymphocyte % 29.9 % 25-47 Monocyte % 7.3 % High 0-7 Eosinophil % 2.8 % 0-6 Basophil % 1.0 % 0-2 Nucleated Red Blood Cells % 0 Inr/Protime 02/14/2018 Inr 1.04 High 0.77-1.02 Laboratory test finding 02/14/2018 Activated Partial 35.1 seconds 26.0- 36.3 Thrombo Time Lactic Acid 0.5 mmol/L 0.5-2.0 2 Urinalysis Profile 02/14/2018 Urine Color Yellow Urine Appearance Clear Urine Specific [place] 1.023 1.010-1.030 Urine pH 6.0 5-9 Urine Urobilinogen Negative Negative Urine Ketones Negative Negative Urine Protein Negative Negative Urine Leukocytes Negative Negative Urine Blood Negative Negative Urine Nitrite Negative Negative Urine Bilirubin Negative Negative Urine Glucose Negative Negative Laboratory test finding 02/14/2018 B Type Natriuretic Peptide 18 pg/mL 3 Comp Metabolic Panel 02/14/2018 Sodium 139 mmol/L 135-145 Potassium 4.4 mmol/L 3.5-5.0 Chloride 106 mmol/L 101-111 Co2 Carbon Dioxide 28 mmol/L 22-32 Anion Gap 5 mmol/L 2-11 Glucose 93 mg/dL 70-100 Blood Urea Nitrogen 19 mg/dL 6-24 Creatinine 0.93 mg/dL 0.67-1.17 BUN/Creatinine Ratio 20.4 High 8-20 Calcium 9.2 mg/dL 8.6-10.3 Total Protein 7.1 g/dL 6.4-8.9 Albumin 4.4 g/dL 3.2-5.2 Globulin 2.7 g/dL 2-4 Albumin/Globulin Ratio 1.6 1-3 Total Bilirubin 0.50 mg/dL 0.2-1.0 Alkaline Phosphatase 68 U/L 34-104 Alt 10 U/L 7-52 Ast 16 U/L 13-39 Egfr Non- 98.2 >60 Egfr 118.8 >60 4 Laboratory test finding 02/14/2018 Magnesium 2.1 mg/dL 1.9-2.7 Creatine Kinase 114 U/L 10-223 Troponin I 0.00 ng/mL <0.04 CKMB 02/14/2018 CKMB ng/mL 1.3 ng/mL 0.6-6.3 Laboratory test finding 02/14/2018 TSH (Thyroid Stim Horm) 1.16 mcIU/mL 0.34-5.60 CBC Auto Diff 02/14/2018 White Blood Count 8.3 10^3/uL 3.5-10.8 Red Blood Count 5.09 10^6/uL 4.00-5.40 Hemoglobin 14.6 g/dL 14.0-18.0 Hematocrit 44 % 42-52 Mean Corpuscular Volume 86 fL 80-94 Mean Corpuscular Hemoglobin 29 pg 27-31 Mean Corpuscular HGB Conc 33 g/dL 31-36 Red Cell Distribution Width 13 % 10.5-15 Platelet Count 151 10^3/uL 150-450 Mean Platelet Volume 8.0 um3 7.4-10.4 Abs Neutrophils 5.9 10^3/uL 1.5-7.7 Abs Lymphocytes 1.3 10^3/uL 1.0-4.8 Abs Monocytes 0.9 10^3/uL High 0-0.8 Abs Eosinophils 0.1 10^3/uL 0-0.6 Abs Basophils 0.1 10^3/uL 0-0.2 Abs Nucleated RBC 0 10^3/uL Granulocyte % 71.0 % 38-83 Lymphocyte % 16.2 % Low 25-47 Monocyte % 10.4 % High 0-7 Eosinophil % 1.6 % 0-6 Basophil % 0.8 % 0-2 Nucleated Red Blood Cells % 0 Chlam/GC/Trichomonas PCR, Ur 11/26/2017 Ur Trichomonas POSITIVE Negative 5 vaginalis,PCR Ur Chlamydia trachomatis,PCR Negative Negative 5 Ur Neisseria gonorrhoeae,PCR Negative Negative 5, 6 Laboratory test 11/26/2017 HSV Type I Specific 44.70 index High 0.00-0.90 5, 7 finding Igg HSV II,Igg,Type Specific 1.41 index High 0.00-0.90 5, 8 HIV-1 Rna By PCR,Quant 11/26/2017 HIV-1 Rna by PCR < 20 . 5, 9 log10 HIV-1 Rna (SEE NOTE) 5, 10 CBC Auto Diff 06/29/2017 White Blood Count 6.1 10^3/uL 3.5-10.8 Red Blood Count 4.96 10^6/uL 4.0-5.4 Hemoglobin 14.8 g/dL 14.0-18.0 Hematocrit 43 % 42-52 Mean Corpuscular Volume 87 fL 80-94 Mean Corpuscular Hemoglobin 30 pg 27-31 Mean Corpuscular HGB Conc 34 g/dL 31-36 Red Cell Distribution Width 13 % 10.5-15 Platelet Count 147 10^3/uL Low 150-450 Mean Platelet Volume 8 um3 7.4-10.4 Abs Neutrophils 3.6 10^3/uL 1.5-7.7 Abs Lymphocytes 1.9 10^3/uL 1.0-4.8 Abs Monocytes 0.5 10^3/uL 0-0.8 Abs Eosinophils 0.1 10^3/uL 0-0.6 Abs Basophils 0.1 10^3/uL 0-0.2 Abs Nucleated RBC 0 10^3/uL Granulocyte % 57.8 % 38-83 Lymphocyte % 31.3 % 25-47 Monocyte % 8.1 % 1-9 Eosinophil % 1.9 % 0-6 Basophil % 0.9 % 0-2 Nucleated Red Blood Cells % 0 Laboratory test finding 06/29/2017 Lactic Acid 0.4 mmol/L Low 0.5-2.0 11 D Dimer Quantitative < 200 ng/mL Less Than 230 12 Comp Metabolic Panel 06/29/2017 Sodium 135 mmol/L 133-145 Chloride 104 mmol/L 101-111 Co2 Carbon Dioxide 23 mmol/L 22-32 Glucose 136 mg/dL High 70-100 Blood Urea Nitrogen 24 mg/dL 6-24 Creatinine 0.92 mg/dL 0.67-1.17 BUN/Creatinine Ratio 26.1 High 8-20 Calcium 9.1 mg/dL 8.6-10.3 Total Protein 6.9 g/dL 6.4-8.9 Albumin 4.4 g/dL 3.2-5.2 Globulin 2.5 g/dL 2-4 Albumin/Globulin Ratio 1.8 1-3 Total Bilirubin 0.90 mg/dL 0.2-1.0 Alkaline Phosphatase 55 U/L 34-104 Alt 12 U/L 7-52 Egfr Non- 100.2 >60 Egfr 128.9 >60 13 Potassium 4.2 mmol/L 3.5-5.0 Anion Gap 8 mmol/L 2-11 Ast 20 U/L 13-39 Laboratory test finding 06/29/2017 Troponin I 0.00 ng/mL <0.04 Urinalysis Profile 04/21/2017 Urine Color Yellow Urine Appearance Clear Urine Specific [place] 1.025 1.010-1.030 Urine pH 7.0 5-9 Urine Urobilinogen Positive Negative Urine Ketones Trace Negative Urine Protein 1+(30 mg/dL) Negative Urine Leukocytes 1+ Negative Urine Blood Negative Negative Urine Nitrite Negative Negative Urine Bilirubin Negative Negative Urine Glucose Negative Negative Urine White Blood Cell 1+(6-10/hpf) Absent Urine Red Blood Cell Absent Absent Urine Bacteria Absent Absent Urine Squamous Epithelial Cell Present Absent Laboratory test 04/21/2017 Urine Culture SEE RESULT BELOW 14 finding CBC Auto Diff 04/21/2017 White Blood Count 18.2 10^3/uL High 3.5-10.8 Red Blood Count 4.93 10^6/uL 4.0-5.4 Hemoglobin 14.5 g/dL 14.0-18.0 Hematocrit 44 % 42-52 Mean Corpuscular Volume 89 fL 80-94 Mean Corpuscular Hemoglobin 30 pg 27-31 Mean Corpuscular HGB Conc 33 g/dL 31-36 Red Cell Distribution Width 14 % 10.5-15 Platelet Count 177 10^3/uL 150-450 Mean Platelet Volume 8 um3 7.4-10.4 Abs Neutrophils 15.5 10^3/uL High 1.5-7.7 Abs Lymphocytes 1.8 10^3/uL 1.0-4.8 Abs Monocytes 0.8 10^3/uL 0-0.8 Abs Eosinophils 0 10^3/uL 0-0.6 Abs Basophils 0.1 10^3/uL 0-0.2 Abs Nucleated RBC 0 10^3/uL Granulocyte % 84.9 % High 38-83 Lymphocyte % 9.8 % Low 25-47 Monocyte % 4.5 % 1-9 Eosinophil % 0.1 % 0-6 Basophil % 0.7 % 0-2 Nucleated Red Blood Cells % 0 Laboratory test 04/21/2017 D Dimer Quantitative < 200 ng/mL Less Than 230 15 finding Comp Metabolic Panel 04/21/2017 Sodium 135 mmol/L 133-145 Potassium 4.1 mmol/L 3.5-5.0 Chloride 102 mmol/L 101-111 Co2 Carbon Dioxide 25 mmol/L 22-32 Anion Gap 8 mmol/L 2-11 Glucose 94 mg/dL 70-100 Blood Urea Nitrogen 20 mg/dL 6-24 Creatinine 0.89 mg/dL 0.67-1.17 BUN/Creatinine Ratio 22.5 High 8-20 Calcium 9.4 mg/dL 8.6-10.3 Total Protein 7.1 g/dL 6.4-8.9 Albumin 4.4 g/dL 3.2-5.2 Globulin 2.7 g/dL 2-4 Albumin/Globulin Ratio 1.6 1-3 Total Bilirubin 1.30 mg/dL High 0.2-1.0 Alkaline Phosphatase 62 U/L 34-104 Alt 12 U/L 7-52 Ast 20 U/L 13-39 Egfr Non- 104.2 >60 Egfr 133.9 >60 16 Laboratory test finding 04/21/2017 Lipase < 10 U/L Low 11.0-82.0 CRP High Sensitivity 17.07 mg/L 17 Troponin I 0.00 ng/mL <0.04 B Type Natriuretic Peptide 45 pg/mL 18 Monospot Negative Negative HCV Rna By PCR (Quant) 04/11/2017 Hepatitis C 220 IU/mL . 19 HCV log10 2.342 IU/mL . 19, 20 Test Info (SEE NOTE) 19, 21 HCV Rna PCR,Quant Reflex Kate 03/15/2017 Hepatitis C Quantitation 7260 IU/ mL . HCV Rna Copies Log 10 3.861 [id number] . 22 Test Information: (SEE NOTE) 23 HCV Genotype (SEE NOTE) 24 Laboratory test finding 03/15/2017 Hepatitis C Genotyping QN PCR <pending> Comments: <pending> Hepatitis C Genotype 1a . Test Comment (SEE NOTE) 25 HCV Ns5a Drug Resistance Assay 12/11/2016 HCV Ns5a Resistance Assay PDF . . 26 HCV Ns5a Drug Resist. Result (SEE NOTE) 26, 27 HCV Ns5a Resist Assay Interp (SEE NOTE) 26, 28 HCV genotype (1a or 1b)? 1A 26 HCV Rna PCR,Quant Reflex Kate 12/11/2016 Hepatitis C Quantitation 07237 IU/ mL . 26 HCV Rna Copies Log 10 4.900 [id number] . 26, 29 Test Information: (SEE NOTE) 26, 30 HCV Genotype (SEE NOTE) 26, 31 HCV genotype (1a or 1b)? 1A 26 HCV Fibrosure 12/11/2016 Fibrosis Score 0.36 High 0.00-0.21 26 Fibrosis Stage F1-F2 . 26 Necroinflammat Activity Score 0.90 High 0.00-0.17 26 Necroinflammat Activity Grade A3-Severe activi <SEE NOTE> . 26, 32 Oiyay-1-Noqhuxdehpmqr 235 mg/dL 110-276 26 Haptoglobin 60 mg/dL 34-200 26 Apolipoprotein A-1 141 mg/dL 101-178 26 Bilirubin,Total 0.7 mg/dL 0.0-1.2 26 GGT 57 IU/L 0-65 26 Alt (SGPT) 301 IU/L High 0-55 26 Interpretations: (SEE NOTE) 26, 33 Fibrosis Scoring (SEE NOTE) 26, 34 Necroinflamm Activity Scoring: (SEE NOTE) 26, 35 Limitations: (SEE NOTE) 26, 36 Comment: (SEE NOTE) 26, 37 HCV genotype (1a or 1b)? 1A 26 Liver Function Tests 12/11/2016 Total Protein 7.8 g/dL 6.4-8.2 26 Albumin 4.1 g/dL 3.4-5.0 26 Globulin 3.7 g/dL 1.9-4.3 26 Alb/Glob 1.1 ratio 26 Bilirubin,Total 0.9 mg/dL 0.2-1.0 26 Bilirubin,Direct 0.4 mg/dL High 0.0-0.2 26 Bilirubin,Indirect 0.5 mg/dL 0.0-0.9 26 Sgot/Ast 89 U/L High 15-37 26 SGPT/Alt 352 U/L High 12-78 26 Alkaline Phosphatase 126 U/L High 45-117 26 Hepatitis C Virus Genotyping 12/11/2016 Hepatitis C Genotype 1a . 26 Test Comment (SEE NOTE) 26, 38 HCV genotype (1a or 1b)? 1A 26 Alp SerPl-cCnc 11/27/2016 Alp SerPl-cCnc 163 High 45-117 Alt SerPl-cCnc 11/27/2016 Alt SerPl-cCnc 2343 12-78 Sodium SerPl-sCnc 11/27/2016 Sodium SerPl-sCnc 141 136-145 Serum or plasma indirect 11/27/2016 Serum or plasma indirect 0.9 0.0-0.9 bilirubin measurement bilirubin measurement (ma (mass/volume) Serum or plasma direct 11/27/2016 Serum or plasma direct 2.1 High 0.0-0.2 bilirubin measurement bilirubin measurement (mass (mass/volume) Prot SerPl-mCnc 11/27/2016 Prot SerPl-mCnc 6.2 Low 6.4-8.2 Albumin SerPl-mCnc 11/27/2016 Albumin SerPl-mCnc 3.2 Low 3.4-5.0 Albumin/Glob SerPl 11/27/2016 Albumin/Glob SerPl 1.1 Anion Gap SerPl-sCnc 11/27/2016 Anion Gap SerPl-sCnc 8 8-16 Aspartate 11/27/2016 Aspartate 1040 15-37 aminotransferase aminotransferase [Enzymatic activity/vol [Enzymatic activity/volume] in Serum or Plasma BUN SerPl-mCnc 11/27/2016 BUN SerPl-mCnc 11 7-18 BUN/Creat SerPl 11/27/2016 BUN/Creat SerPl 11.0 Bilirub SerPl-mCnc 11/27/2016 Bilirub SerPl-mCnc 3.0 High 0.2-1.0 Co2 SerPl-sCnc 11/27/2016 Co2 SerPl-sCnc 29 21-32 Calcium SerPl-mCnc 11/27/2016 Calcium SerPl-mCnc 8.3 Low 8.5-10.1 Potassium SerPl-sCnc 11/27/2016 Potassium SerPl-sCnc 3.9 3.5-5.1 Glucose [Mass/volume] in 11/27/2016 Glucose [Mass/volume] in 79 74-106 Serum or Plasma Serum or Plasma Globulin Ser Calc-mCnc 11/27/2016 Globulin Ser Calc-mCnc 3.0 1.9-4.3 Creat SerPl-mCnc 11/27/2016 Creat SerPl-mCnc 1.0 0.6-1.3 Chloride SerPl-sCnc 11/27/2016 Chloride SerPl-sCnc 104 98-107 CBC 11/26/2016 White Blood Count 5.4 K/uL 3.4-10.5 39 Red Blood Count 4.81 M/uL 4.20-5.80 39 Hemoglobin 13.7 gm/dL 12.8-17.0 39 Hematocrit 43.1 % 38.0-48.0 39 Mean Cell Volume 89.6 fl 80.0-96.0 39 Mean Corpuscular HGB 28.5 pg 27.0-33.0 39 Mean Corpuscular HGB Conc 31.8 g/dL 31.7-36.0 39 Platelet Count 134 K/uL Low 150-400 39 Red Cell Distri Width %CV 13.9 % 11.6-15.8 39 Mean Platelet Volume 11.4 fL High 6.6-10.6 39 Laboratory test 11/26/2016 Ethyl Alcohol < 3.0 mg/dL 39 finding Hct VFr Bld Auto 11/26/2016 Hct VFr Bld Auto 43.1 38.0-48.0 Hgb Bld-mCnc 11/26/2016 Hgb Bld-mCnc 13.7 12.8-17.0 WBC # Bld Auto 11/26/2016 WBC # Bld Auto 5.4 3.4-10.5 RDW RBC Auto-Rto 11/26/2016 RDW RBC Auto-Rto 13.9 11.6-15.8 RBC # Bld Auto 11/26/2016 RBC # Bld Auto 4.81 4.20-5.80 Platelets [#/volume] 11/26/2016 Platelets [#/volume] 134 Low 150-400 in Blood by Automated in Blood by Automated count count PMV Bld Auto 11/26/2016 PMV Bld Auto 11.4 High 6.6-10.6 MCV RBC Auto 11/26/2016 MCV RBC Auto 89.6 80.0-96.0 MCHC RBC Auto-mCnc 11/26/2016 MCHC RBC Auto-mCnc 31.8 31.7-36.0 MCH RBC Qn Auto 11/26/2016 MCH RBC Qn Auto 28.5 27.0-33.0 Urine hemoglobin 11/25/2016 Urine hemoglobin Negative Negative detection by automated detection by automated test strip test strip Urine glucose 11/25/2016 Urine glucose Negative Negative measurement by measurement by automated test strip automated test strip (mass/volume) Urobilinogen Ur 11/25/2016 Urobilinogen Ur 1.0 0.2-1.0 Strip-aCnc Strip-aCnc pH Ur Strip.auto 11/25/2016 pH Ur Strip.auto 7.5 6.5-7.5 CBS W/Automated Diff 11/25/2016 White Blood Count 6.1 K/uL 3.4-10.5 40 Red Blood Count 5.00 M/uL 4.20-5.80 40 Hemoglobin 14.5 gm/dL 12.8-17.0 40 Hematocrit 44.5 % 38.0-48.0 40 Mean Cell Volume 89.0 fl 80.0-96.0 40 Mean Corpuscular HGB 29.0 pg 27.0-33.0 40 Mean Corpuscular HGB Conc 32.6 g/dL 31.7-36.0 40 Platelet Count 118 K/uL Low 150-400 40 Red Cell Distri Width SD 43.7 fl 36-51 40 Red Cell Distri Width %CV 13.7 % 11.6-15.8 40 Mean Platelet Volume 11.3 fL High 6.6-10.6 40 Neut% 47.4 % 33.0-73.0 40 Lymph % 32.6 % 20.0-42.0 40 [place] % 17.0 % High 0.0-10.0 40 Eo% 2.5 % 0.0-6.6 40 Bas% 0.5 % 0.0-1.1 40 Neut# 2.88 K/uL 1.8-7.0 40 Lymph # 1.98 K/uL 1.0-4.0 40 [place] # 1.03 K/uL High 0.0-0.8 40 Eos # 0.15 K/uL 0.0-0.5 40 Baso # 0.03 K/uL 0.0-0.1 40 Comprehensive Metabolic Panel 11/25/2016 Glucose 79 mg/dL 74-106 40 BUN 18 mg/dL 7-18 40 Creatinine 0.9 mg/dL 0.6-1.3 40 Glom Filtration Rate, Estimate >60 mL/min >60 40 If >60 mL/min >60 40, 41 BUN/Creat 20.0 ratio 40 Sodium 139 mmol/L 136-145 40 Potassium 4.6 mmol/L 3.5-5.1 40 Chloride 104 mmol/L 98-107 40 Carbon Dioxide 31 mmol/L 21-32 40 Anion Gap 4 mEq/L Low 8-16 40 Calcium 8.6 mg/dL 8.5-10.1 40 Total Protein 7.1 g/dL 6.4-8.2 40 Albumin 3.7 g/dL 3.4-5.0 40 Globulin 3.4 g/dL 1.9-4.3 40 Alb/Glob 1.1 ratio 40 Bilirubin,Total 2.5 mg/dL High 0.2-1.0 40 Sgot/Ast 1761 U/L High 15-37 40 SGPT/Alt 2745 U/L High 12-78 40 Alkaline Phosphatase 161 U/L High 45-117 40 Laboratory test finding 11/25/2016 Lipase 150 U/L 73-393 40 Troponin-I < 0.015 ng/mL 40, 42 Laboratory test finding 11/25/2016 Thyroxine (T4) 15.0 g/dL High 4.7- 13.3 43 Thyroid Stim Hormone 2.29 uIU/mL 0.30-4.20 43 Basophils 11/25/2016 Basophils 0.03 0.0-0.1 [#/volume] in Blood [#/volume] in Blood by Automated count by Automated count Basophils/leuk NFr 11/25/2016 Basophils/leuk NFr 0.5 0.0-1.1 Bld Auto Bld Auto Eosinophil # Bld 11/25/2016 Eosinophil # Bld 0.15 0.0-0.5 Auto Auto Eosinophil/leuk NFr 11/25/2016 Eosinophil/leuk NFr 2.5 0.0-6.6 Bld Auto Bld Auto Lymphocytes 11/25/2016 Lymphocytes 1.98 1.0-4.0 [#/volume] in Blood [#/volume] in Blood by Automated count by Automated count Lymphocytes/leuk 11/25/2016 Lymphocytes/leuk 32.6 20.0-42.0 NFr Bld Auto NFr Bld Auto Monocytes # Bld 11/25/2016 Monocytes # Bld 1.03 High 0.0-0.8 Auto Auto Monocytes/leuk NFr 11/25/2016 Monocytes/leuk NFr 17.0 High 0.0-10.0 Bld Auto Bld Auto Neutrophils # Bld 11/25/2016 Neutrophils # Bld 2.88 1.8-7.0 Auto Auto Neutrophils/leuk 11/25/2016 Neutrophils/leuk 47.4 33.0-73.0 NFr Bld Auto NFr Bld Auto RDW RBC Auto 11/25/2016 RDW RBC Auto 43.7 36-51 Anaerobic blood 11/25/2016 Anaerobic blood No Growth culture culture Xray 11/25/2016 CT, Abdomen & <pending> Pelvis W Contrast Bacteria Bld Aerobe 11/25/2016 Bacteria Bld Aerobe No Growth Cult Cult Blood Culture 11/25/2016 Blood Culture NO GROWTH: 44, 45 Aerobic FINAL <SEE NOTE> Blood Culture Anaerobic NO GROWTH: FINAL <SEE NOTE> 44, 46 Liver Function Tests 11/25/2016 Total Protein 6.5 g/dL 6.4-8.2 47 Albumin 3.6 g/dL 3.4-5.0 47 Globulin 2.9 g/dL 1.9-4.3 47 Alb/Glob 1.2 ratio 47 Bilirubin,Total 2.7 mg/dL High 0.2-1.0 47 Bilirubin,Direct 1.7 mg/dL High 0.0-0.2 47 Bilirubin,Indirect 1.0 mg/dL High 0.0-0.9 47 Sgot/Ast 1577 U/L High 15-37 47 SGPT/Alt 2755 U/L High 12-78 47 Alkaline Phosphatase 150 U/L High 45-117 47 Drugs Of Abuse-Urine Screen 7 11/25/2016 Amphetamines (Urine) Negative 47 Barbiturates (Urine) Negative 47 Benzodiazepines (Urine) Negative 47 Cannabinoids (Urine) POSITIVE 47 Cocaine Metabolite (Urine) Negative 47 Methadone (Urine) Negative 47 Opiates (Urine) Negative 47 Urine Cutoffs * 47, 48 Drug screen comment 11/25/2016 Drug screen comment * [Interpretation] in [Interpretation] in Urine Urine Urine amphetamines 11/25/2016 Urine amphetamines Negative detection by screening detection by screening method method Urine barbiturate 11/25/2016 Urine barbiturate Negative screening test screening test Urine benzodiazepines 11/25/2016 Urine benzodiazepines Negative measurement by measurement by screening met screening method (mass/volume) Urine cannabinoids 11/25/2016 Urine cannabinoids Positive High detection by screening detection by screening method method Urine cocaine 11/25/2016 Urine cocaine Negative metabolite screen metabolite screen Urine methadone screen 11/25/2016 Urine methadone screen Negative Urine opiates detection 11/25/2016 Urine opiates detection Negative by screening method by screening method Blood Culture 11/25/2016 Blood Culture Aerobic NO GROWTH: 49, 50 FINAL <SEE NOTE> Blood Culture Anaerobic NO GROWTH: FINAL <SEE NOTE> 49, 51 Aot Request 11/25/2016 Aot Request Test(s) added 52, 53 Tests to be added: lipase 52 * Miscellaneous 11/25/2016 * Miscellaneous Test(s) added studies (set) studies (set) Urine appearance 11/25/2016 Urine appearance Clear Clear determination determination Specific gravity of 11/25/2016 Specific gravity of 1.010 1.010-1.030 Urine by Automated Urine by Automated test strip test strip Prot Ur 11/25/2016 Prot Ur Trace Negative Strip.auto-mCnc Strip.auto-mCnc Nitrite Ur Ql 11/25/2016 Nitrite Ur Ql Negative Negative Strip.auto Strip.auto Leukocyte esterase Ur 11/25/2016 Leukocyte esterase Ur Negative Negative Ql Strip.auto Ql Strip.auto Ketones Ur 11/25/2016 Ketones Ur Negative Negative Strip.auto-mCnc Strip.auto-mCnc Color Ur 11/25/2016 Color Ur Yellow Yellow Bilirub Ur Ql 11/25/2016 Bilirub Ur Ql Negative Negative Strip.auto Strip.auto Ua RFX Micro & 11/25/2016 Urine Color YELLOW Yellow 54 Culture II Urine Clarity CLEAR Clear 54 Urine Glucose - Dipstick NEGATIVE mg/dL Negative 54 Urine Bilirubin - Dipstick NEGATIVE Negative 54 Urine Ketone NEGATIVE mg/dL Negative 54 Urine Specific [place] 1.010 1.010-1.030 54 Urine Blood NEGATIVE Negative 54 Urine PH 7.5 6.5-7.5 54 Urine Protein - Dipstick TRACE mg/dL Negative 54 Urine Urobilinogen - Dipstick 1.0 E.U./dL 0.2-1.0 54 Urine Nitrite - Dipstick NEGATIVE Negative 54 Urine Leuk Esterase NEGATIVE Negative 54 Source: URINE, CLEAN CAT <SEE NOTE> 54, 55 Hepatitis Evaluation 11/25/2016 Hepatitis A Antibody IgM Negative Negative 56 HBsAg Screen [Ref Lab] Negative Negative 56 Hepatitis B Core IgM Negative Negative 56 Signal/Cutoff ratio > 11.0 s/corat High 0.0-0.9 56, 57 Prothrombin time 11/25/2016 Prothrombin time 15.8 High 12.0-14.4 Laboratory test finding 11/25/2016 Acetaminophen < 2.0 ug/mL Low 10.0- 30.0 58, 59 Liver Function Tests 11/25/2016 Total Protein 6.4 g/dL 6.4-8.2 58 Albumin 3.5 g/dL 3.4-5.0 58 Globulin 2.9 g/dL 1.9-4.3 58 Alb/Glob 1.2 ratio 58 Bilirubin,Total 2.6 mg/dL High 0.2-1.0 58 Bilirubin,Direct 1.9 mg/dL High 0.0-0.2 58 Bilirubin,Indirect 0.7 mg/dL 0.0-0.9 58 Sgot/Ast 1685 U/L High 15-37 58 SGPT/Alt 2801 U/L High 12-78 58 Alkaline Phosphatase 151 U/L High 45-117 58 Lipase SerPl-cCnc 11/25/2016 Lipase SerPl-cCnc 151 73-393 Protime 11/25/2016 Protime 15.8 seconds High 12.0-14.4 58 Inr 1.3 High 0.9-1.1 58, 60 Laboratory test 11/25/2016 Act Partial Thrombo 35.4 seconds High 23.4- 35.0 58, 61 finding Time Neutrophils # Bld 09/23/2016 Neutrophils # Bld 2.79 1.8-7.0 Auto Auto Neutrophils/leuk 09/23/2016 Neutrophils/leuk NFr 51.1 33.0-73.0 NFr Bld Auto Bld Auto PMV Bld Auto 09/23/2016 PMV Bld Auto 9.9 6.6-10.6 Platelet # Bld Auto 09/23/2016 Platelet # Bld Auto 145 Low 150-400 Potassium 09/23/2016 Potassium SerPl-sCnc 4.0 3.5-5.1 SerPl-sCnc Prot SerPl-mCnc 09/23/2016 Prot SerPl-mCnc 6.6 6.4-8.2 RBC # Bld Auto 09/23/2016 RBC # Bld Auto 4.97 4.20-5.80 RDW RBC Auto 09/23/2016 RDW RBC Auto 41.9 36-51 RDW RBC Auto-Rto 09/23/2016 RDW RBC Auto-Rto 13.1 11.6-15.8 Sodium SerPl-sCnc 09/23/2016 Sodium SerPl-sCnc 143 136-145 WBC # Bld Auto 09/23/2016 WBC # Bld Auto 5.5 3.4-10.5 Alt SerPl-cCnc 09/23/2016 Alt SerPl-cCnc 25 12-78 Alp SerPl-cCnc 09/23/2016 Alp SerPl-cCnc 84 45-117 Laboratory test 09/23/2016 D-Dimer, < 0.22 ug/mL 62, 63 finding Quantitative CBS W/Automated 09/23/2016 White Blood Count 5.5 K/uL 3.4-10.5 62 Diff Red Blood Count 4.97 M/uL 4.20-5.80 62 Hemoglobin 14.4 gm/dL 12.8-17.0 62 Hematocrit 44.2 % 38.0-48.0 62 Mean Cell Volume 88.9 fl 80.0-96.0 62 Mean Corpuscular HGB 29.0 pg 27.0-33.0 62 Mean Corpuscular HGB Conc 32.6 g/dL 31.7-36.0 62 Platelet Count 145 K/uL Low 150-400 62 Red Cell Distri Width SD 41.9 fl 36-51 62 Red Cell Distri Width %CV 13.1 % 11.6-15.8 62 Mean Platelet Volume 9.9 fL 6.6-10.6 62 Neut% 51.1 % 33.0-73.0 62 Lymph % 37.0 % 20.0-42.0 62 [place] % 9.3 % 0.0-10.0 62 Eo% 2.2 % 0.0-6.6 62 Bas% 0.4 % 0.0-1.1 62 Neut# 2.79 K/uL 1.8-7.0 62 Lymph # 2.02 K/uL 1.0-4.0 62 [place] # 0.51 K/uL 0.0-0.8 62 Eos # 0.12 K/uL 0.0-0.5 62 Baso # 0.02 K/uL 0.0-0.1 62 Laboratory test finding 09/23/2016 Magnesium 2.2 mg/dL 1.8-2.4 62 CK 94 U/L 39-308 62 Troponin-I < 0.015 ng/mL 62, 64 Comprehensive Metabolic Panel 09/23/2016 Glucose 83 mg/dL 74-106 62 BUN 17 mg/dL 7-18 62 Creatinine 1.1 mg/dL 0.6-1.3 62 Glom Filtration Rate, Estimate >60 mL/min >60 62 If >60 mL/min >60 62, 65 BUN/Creat 15.4 ratio 62 Sodium 143 mmol/L 136-145 62 Potassium 4.0 mmol/L 3.5-5.1 62 Chloride 107 mmol/L 98-107 62 Carbon Dioxide 32 mmol/L 21-32 62 Anion Gap 4 mEq/L Low 8-16 62 Calcium 8.0 mg/dL Low 8.5-10.1 62 Total Protein 6.6 g/dL 6.4-8.2 62 Albumin 3.6 g/dL 3.4-5.0 62 Globulin 3.0 g/dL 1.9-4.3 62 Alb/Glob 1.2 ratio 62 Bilirubin,Total 0.3 mg/dL 0.2-1.0 62 Sgot/Ast 17 U/L 15-37 62 SGPT/Alt 25 U/L 12-78 62 Alkaline Phosphatase 84 U/L 45-117 62 Ast SerPl-cCnc 09/23/2016 Ast SerPl-cCnc 17 15-37 Albumin SerPl-mCnc 09/23/2016 Albumin SerPl-mCnc 3.6 3.4-5.0 Albumin/Glob SerPl 09/23/2016 Albumin/Glob SerPl 1.2 Anion Gap SerPl-sCnc 09/23/2016 Anion Gap SerPl-sCnc 4 Low 8-16 BUN SerPl-mCnc 09/23/2016 BUN SerPl-mCnc 17 7-18 BUN/Creat SerPl 09/23/2016 BUN/Creat SerPl 15.4 Basophils # Bld Auto 09/23/2016 Basophils # Bld Auto 0.02 0.0-0.1 Basophils/leuk NFr Bld 09/23/2016 Basophils/leuk NFr 0.4 0.0-1.1 Auto Bld Auto Bilirub SerPl-mCnc 09/23/2016 Bilirub SerPl-mCnc 0.3 0.2-1.0 Co2 SerPl-sCnc 09/23/2016 Co2 SerPl-sCnc 32 21-32 Calcium SerPl-mCnc 09/23/2016 Calcium SerPl-mCnc 8.0 Low 8.5-10.1 Chloride SerPl-sCnc 09/23/2016 Chloride SerPl-sCnc 107 98-107 Creat SerPl-mCnc 09/23/2016 Creat SerPl-mCnc 1.1 0.6-1.3 Eosinophil # Bld Auto 09/23/2016 Eosinophil # Bld 0.12 0.0-0.5 Auto Eosinophil/leuk NFr 09/23/2016 Eosinophil/leuk NFr 2.2 0.0-6.6 Bld Auto Bld Auto Globulin Ser Calc-mCnc 09/23/2016 Globulin Ser 3.0 1.9-4.3 Calc-mCnc Glucose [mass/volume] 09/23/2016 Glucose 83 74-106 in serum or plasma [mass/volume] in serum or plasma Hct VFr Bld Auto 09/23/2016 Hct VFr Bld Auto 44.2 38.0-48.0 Hgb Bld-mCnc 09/23/2016 Hgb Bld-mCnc 14.4 12.8-17.0 Lymphocytes # Bld Auto 09/23/2016 Lymphocytes # Bld 2.02 1.0-4.0 Auto Lymphocytes/leuk NFr 09/23/2016 Lymphocytes/leuk NFr 37.0 20.0-42.0 Bld Auto Bld Auto MCH RBC Qn Auto 09/23/2016 MCH RBC Qn Auto 29.0 27.0-33.0 MCHC RBC Auto-mCnc 09/23/2016 MCHC RBC Auto-mCnc 32.6 31.7-36.0 MCV RBC Auto 09/23/2016 MCV RBC Auto 88.9 80.0-96.0 Monocytes # Bld Auto 09/23/2016 Monocytes # Bld Auto 0.51 0.0-0.8 Monocytes/leuk NFr Bld 09/23/2016 Monocytes/leuk NFr 9.3 0.0-10.0 Auto Bld Auto Monocytes # Bld Auto 09/14/2016 Monocytes # Bld Auto 0.74 0.0-0.8 Monocytes/leuk NFr Bld 09/14/2016 Monocytes/leuk NFr 10.0 0.0-10.0 Auto Bld Auto Neutrophils # Bld Auto 09/14/2016 Neutrophils # Bld 3.97 1.8-7.0 Auto Neutrophils/leuk NFr 09/14/2016 Neutrophils/leuk NFr 53.7 33.0-73.0 Bld Auto Bld Auto PMV Bld Auto 09/14/2016 PMV Bld Auto 9.8 6.6-10.6 Platelet # Bld Auto 09/14/2016 Platelet # Bld Auto 210 150-400 Potassium SerPl-sCnc 09/14/2016 Potassium SerPl-sCnc 3.3 Low 3.5-5.1 Prot SerPl-mCnc 09/14/2016 Prot SerPl-mCnc 6.5 6.4-8.2 RBC # Bld Auto 09/14/2016 RBC # Bld Auto 4.90 4.20-5.80 RDW RBC Auto 09/14/2016 RDW RBC Auto 41.9 36-51 RDW RBC Auto-Rto 09/14/2016 RDW RBC Auto-Rto 13.0 11.6-15.8 Sodium SerPl-sCnc 09/14/2016 Sodium [facility] 145 136-145 WBC # Bld Auto 09/14/2016 WBC # Bld Auto 7.4 3.4-10.5 Laboratory test 09/14/2016 Troponin-I < 0.015 66, 67 finding ng/mL Comprehensive 09/14/2016 Glucose 95 mg/dL 74-106 66 Metabolic Panel BUN 19 mg/dL High 7-18 66 Creatinine 1.0 mg/dL 0.6-1.3 66 Glom Filtration Rate, Estimate >60 mL/min >60 66 If >60 mL/min >60 66, 68 BUN/Creat 19.0 ratio 66 Sodium 145 mmol/L 136-145 66 Potassium 3.3 mmol/L Low 3.5-5.1 66 Chloride 108 mmol/L High 98-107 66 Carbon Dioxide 27 mmol/L 21-32 66 Anion Gap 10 mEq/L 8-16 66 Calcium 7.6 mg/dL Low 8.5-10.1 66 Total Protein 6.5 g/dL 6.4-8.2 66 Albumin 3.4 g/dL 3.4-5.0 66 Globulin 3.1 g/dL 1.9-4.3 66 Alb/Glob 1.1 ratio 66 Bilirubin,Total 0.5 mg/dL 0.2-1.0 66 Sgot/Ast 14 U/L Low 15-37 66, 69 SGPT/Alt 21 U/L 12-78 66 Alkaline Phosphatase 71 U/L 45-117 66 CBS W/Automated Diff 09/14/2016 White Blood Count 7.4 K/uL 3.4-10.5 66 Red Blood Count 4.90 M/uL 4.20-5.80 66 Hemoglobin 14.3 gm/dL 12.8-17.0 66 Hematocrit 43.5 % 38.0-48.0 66 Mean Cell Volume 88.8 fl 80.0-96.0 66 Mean Corpuscular HGB 29.2 pg 27.0-33.0 66 Mean Corpuscular HGB Conc 32.9 g/dL 31.7-36.0 66 Platelet Count 210 K/uL 150-400 66 Red Cell Distri Width SD 41.9 fl 36-51 66 Red Cell Distri Width %CV 13.0 % 11.6-15.8 66 Mean Platelet Volume 9.8 fL 6.6-10.6 66 Neut% 53.7 % 33.0-73.0 66 Lymph % 34.0 % 20.0-42.0 66 [place] % 10.0 % 0.0-10.0 66 Eo% 1.9 % 0.0-6.6 66 Bas% 0.4 % 0.0-1.1 66 Neut# 3.97 K/uL 1.8-7.0 66 Lymph # 2.51 K/uL 1.0-4.0 66 [place] # 0.74 K/uL 0.0-0.8 66 Eos # 0.14 K/uL 0.0-0.5 66 Baso # 0.03 K/uL 0.0-0.1 66 Laboratory test 09/14/2016 D-Dimer, Quantitative 0.53 ug/mL 66, 70 finding Alp SerPl-cCnc 09/14/2016 Alp SerPl-cCnc 71 45-117 Alt SerPl-cCnc 09/14/2016 Alt SerPl-cCnc 21 12-78 Ast SerPl-cCnc 09/14/2016 Ast SerPl-cCnc 14 Low 15-37 Albumin SerPl-mCnc 09/14/2016 Albumin SerPl-mCnc 3.4 3.4-5.0 Albumin/Glob SerPl 09/14/2016 Albumin/Glob SerPl 1.1 Anion Gap SerPl-sCnc 09/14/2016 Anion Gap SerPl-sCnc 10 8-16 BUN SerPl-mCnc 09/14/2016 BUN SerPl-mCnc 19 High 7-18 BUN/Creat SerPl 09/14/2016 BUN/Creat SerPl 19.0 Basophils # Bld Auto 09/14/2016 Basophils # Bld Auto 0.03 0.0-0.1 Basophils/leuk NFr 09/14/2016 Basophils/leuk NFr 0.4 0.0-1.1 Bld Auto Bld Auto Bilirub SerPl-mCnc 09/14/2016 Bilirub SerPl-mCnc 0.5 0.2-1.0 Co2 SerPl-sCnc 09/14/2016 Co2 SerPl-sCnc 27 21-32 Calcium SerPl-mCnc 09/14/2016 Calcium SerPl-mCnc 7.6 Low 8.5-10.1 Chloride SerPl-sCnc 09/14/2016 Chloride SerPl-sCnc 108 High 98-107 MCV RBC Auto 09/14/2016 MCV RBC Auto 88.8 80.0-96. 0 MCHC RBC Auto-mCnc 09/14/2016 MCHC RBC Auto-mCnc 32.9 31.7-36. 0 MCH RBC Qn Auto 09/14/2016 MCH RBC Qn Auto 29.2 27.0-33. 0 Lymphocytes/leuk NFr 09/14/2016 Lymphocytes/leuk NFr 34.0 20.0-42. Bld Auto Bld Auto 0 Lymphocytes # Bld 09/14/2016 Lymphocytes # Bld 2.51 1.0-4.0 Auto Auto Hgb Bld-mCnc 09/14/2016 Hgb Bld-mCnc 14.3 12.8-17. 0 Hct VFr Bld Auto 09/14/2016 Hct VFr Bld Auto 43.5 38.0-48. 0 Glucose 09/14/2016 Glucose [mass/volume] 95 74-106 [mass/volume] in in serum or plasma serum or plasma Globulin Ser 09/14/2016 Globulin Ser 3.1 1.9-4.3 Calc-mCnc Calc-mCnc Fibrin D-dimer Feu 09/14/2016 Fibrin D-dimer Feu 0.53 measurement in measurement in platelet poor pl platelet poor plasma (mass/volume) Eosinophil/leuk NFr 09/14/2016 Eosinophil/leuk NFr 1.9 0.0-6.6 Bld Auto Bld Auto Eosinophil # Bld 09/14/2016 Eosinophil # Bld Auto 0.14 0.0-0.5 Auto Creat SerPl-mCnc 09/14/2016 Creat SerPl-mCnc 1.0 0.6-1.3 Laboratory test 09/02/2016 Troponin-I < 0.015 ng/mL 71, 72 finding CBS W/Automated Diff 08/17/2016 White Blood Count 5.9 K/uL 3.4-10.5 73 Red Blood Count 4.91 M/uL 4.20-5.80 73 Hemoglobin 13.9 gm/dL 12.8-17.0 73 Hematocrit 43.2 % 38.0-48.0 73 Mean Cell Volume 88.0 fl 80.0-96.0 73 Mean Corpuscular HGB 28.3 pg 27.0-33.0 73 Mean Corpuscular HGB Conc 32.2 g/dL 31.7-36.0 73 Platelet Count 149 K/uL Low 150-400 73 Red Cell Distri Width SD 40.9 fl 36-51 73 Red Cell Distri Width %CV 13.0 % 11.6-15.8 73 Mean Platelet Volume 10.0 fL 6.6-10.6 73 Neut% 65.0 % 33.0-73.0 73 Lymph % 24.1 % 20.0-42.0 73 [place] % 9.4 % 0.0-10.0 73 Eo% 1.2 % 0.0-6.6 73 Bas% 0.3 % 0.0-1.1 73 Neut# 3.80 K/uL 1.8-7.0 73 Lymph # 1.41 K/uL 1.0-4.0 73 [place] # 0.55 K/uL 0.0-0.8 73 Eos # 0.07 K/uL 0.0-0.5 73 Baso # 0.02 K/uL 0.0-0.1 73 Comprehensive Metabolic Panel 08/17/2016 Glucose 76 mg/dL 74-106 73 BUN 19 mg/dL High 7-18 73 Creatinine 0.9 mg/dL 0.6-1.3 73 Glom Filtration Rate, Estimate >60 mL/min >60 73 If >60 mL/min >60 73, 74 BUN/Creat 21.1 ratio 73 Sodium 140 mmol/L 136-145 73 Potassium 4.0 mmol/L 3.5-5.1 73 Chloride 106 mmol/L 98-107 73 Carbon Dioxide 27 mmol/L 21-32 73 Anion Gap 7 mEq/L Low 8-16 73 Calcium 8.5 mg/dL 8.5-10.1 73 Total Protein 7.1 g/dL 6.4-8.2 73 Albumin 4.2 g/dL 3.4-5.0 73 Globulin 2.9 g/dL 1.9-4.3 73 Alb/Glob 1.4 ratio 73 Bilirubin,Total 0.4 mg/dL 0.2-1.0 73 Sgot/Ast 17 U/L 15-37 73 SGPT/Alt 19 U/L 12-78 73 Alkaline Phosphatase 72 U/L 45-117 73 WBC # Bld Auto 08/17/2016 WBC # Bld Auto 5.9 3.4-10.5 Sodium SerPl-sCnc 08/17/2016 Sodium SerPl-sCnc 140 136-145 RDW RBC Auto-Rto 08/17/2016 RDW RBC Auto-Rto 13.0 11.6-15.8 RDW RBC Auto 08/17/2016 RDW RBC Auto 40.9 36-51 RBC # Bld Auto 08/17/2016 RBC # Bld Auto 4.91 4.20-5.80 Prot SerPl-mCnc 08/17/2016 Prot SerPl-mCnc 7.1 6.4-8.2 Potassium SerPl-sCnc 08/17/2016 Potassium SerPl-sCnc 4.0 3.5-5.1 Platelet # Bld Auto 08/17/2016 Platelet # Bld Auto 149 Low 150-400 PMV Bld Auto 08/17/2016 PMV Bld Auto 10.0 6.6-10.6 Neutrophils/leuk NFr 08/17/2016 Neutrophils/leuk NFr 65.0 33.0-73.0 Bld Auto Bld Auto Neutrophils # Bld 08/17/2016 Neutrophils # Bld 3.80 1.8-7.0 Auto Auto Monocytes/leuk NFr 08/17/2016 Monocytes/leuk NFr 9.4 0.0-10.0 Bld Auto Bld Auto Eosinophil # Bld 08/17/2016 Eosinophil # Bld 0.07 0.0-0.5 Auto Auto Creat SerPl-mCnc 08/17/2016 Creat SerPl-mCnc 0.9 0.6-1.3 Chloride SerPl-sCnc 08/17/2016 Chloride SerPl-sCnc 106 98-107 Calcium SerPl-mCnc 08/17/2016 Calcium SerPl-mCnc 8.5 8.5-10.1 Co2 SerPl-sCnc 08/17/2016 Co2 SerPl-sCnc 27 21-32 Bilirub SerPl-mCnc 08/17/2016 Bilirub SerPl-mCnc 0.4 0.2-1.0 Basophils/leuk NFr 08/17/2016 Basophils/leuk NFr 0.3 0.0-1.1 Bld Auto Bld Auto Basophils # Bld Auto 08/17/2016 Basophils # Bld Auto 0.02 0.0-0.1 BUN/Creat SerPl 08/17/2016 BUN/Creat SerPl 21.1 BUN SerPl-mCnc 08/17/2016 BUN SerPl-mCnc 19 High 7-18 Anion Gap SerPl-sCnc 08/17/2016 Anion Gap SerPl-sCnc 7 Low 8-16 Albumin/Glob SerPl 08/17/2016 Albumin/Glob SerPl 1.4 Albumin SerPl-mCnc 08/17/2016 Albumin SerPl-mCnc 4.2 3.4-5.0 Ast SerPl-cCnc 08/17/2016 Ast SerPl-cCnc 17 15-37 Alt SerPl-cCnc 08/17/2016 Alt SerPl-cCnc 19 12-78 Alp SerPl-cCnc 08/17/2016 Alp SerPl-cCnc 72 45-117 Laboratory test 08/17/2016 Lipase 132 U/L 73-393 73 finding MCH RBC Qn Auto 08/17/2016 MCH RBC Qn Auto 28.3 27.0-33.0 Lipase SerPl-cCnc 08/17/2016 Lipase SerPl-cCnc 132 73-393 Lymphocytes/leuk NFr 08/17/2016 Lymphocytes/leuk NFr 24.1 20.0-42.0 Bld Auto Bld Auto Eosinophil/leuk NFr 08/17/2016 Eosinophil/leuk NFr 1.2 0.0-6.6 Bld Auto Bld Auto Hct VFr Bld Auto 08/17/2016 Hct VFr Bld Auto 43.2 38.0-48.0 MCV RBC Auto 08/17/2016 MCV RBC Auto 88.0 80.0-96.0 Lymphocytes # Bld 08/17/2016 Lymphocytes # Bld 1.41 1.0-4.0 Auto Auto Glucose 08/17/2016 Glucose 76 74-106 [mass/volume] in [mass/volume] in serum or plasma serum or plasma Hgb Bld-mCnc 08/17/2016 Hgb Bld-mCnc 13.9 12.8-17.0 Monocytes # Bld Auto 08/17/2016 Monocytes # Bld Auto 0.55 0.0-0.8 MCHC RBC Auto-mCnc 08/17/2016 MCHC RBC Auto-mCnc 32.2 31.7-36.0 Globulin Ser 08/17/2016 Globulin Ser 2.9 1.9-4.3 Calc-mCnc Calc-mCnc Laboratory test 07/27/2016 Troponin-I < 0.015 75, 76 finding ng/mL Basic Metabolic 05/06/2016 Glucose 72 mg/dL Low 74-106 77 Panel BUN 15 mg/dL 7-18 77 Creatinine 1.0 mg/dL 0.6-1.3 77 Glom Filtration Rate, Estimate >60 mL/min >60 77 If >60 mL/min >60 77, 78 BUN/Creat 15.0 ratio 77 Sodium 141 mmol/L 136-145 77 Potassium 3.9 mmol/L 3.5-5.1 77 Chloride 105 mmol/L 98-107 77 Carbon Dioxide 31 mmol/L 21-32 77 Anion Gap 5 mEq/L Low 8-16 77 Calcium 8.6 mg/dL 8.5-10.1 77 Laboratory test finding 05/06/2016 C-Reactive Protein,Quant < 2.9 mg/L < 3.0 77 CBC 05/06/2016 White Blood Count 8.2 K/uL 3.4-10.5 77 Red Blood Count 5.11 M/uL 4.20-5.80 77 Hemoglobin 15.3 gm/dL 12.8-17.0 77 Hematocrit 45.3 % 38.0-48.0 77 Mean Cell Volume 88.6 fl 80.0-96.0 77 Mean Corpuscular HGB 29.9 pg 27.0-33.0 77 Mean Corpuscular HGB Conc 33.8 g/dL 31.7-36.0 77 Platelet Count 201 K/uL 150-400 77 Red Cell Distri Width %CV 13.2 % 11.6-15.8 77 Mean Platelet Volume 9.8 fL 6.6-10.6 77 Laboratory test finding 05/06/2016 Sedimentation Rate 1 mm/hr 0-15 77 BUN SerPl-mCnc 05/06/2016 BUN SerPl-mCnc 15 7-18 PMV Bld Auto 05/06/2016 PMV Bld Auto 9.8 6.6-10.6 RBC # Bld Auto 05/06/2016 RBC # Bld Auto 5.11 4.20-5.80 Anion Gap SerPl-sCnc 05/06/2016 Anion Gap SerPl-sCnc 5 Low 8-16 Glucose [mass/volume] 05/06/2016 Glucose [mass/volume] in 72 Low 74-106 in serum or plasma serum or plasma WBC # Bld Auto 05/06/2016 WBC # Bld Auto 8.2 3.4-10.5 RDW RBC Auto-Rto 05/06/2016 RDW RBC Auto-Rto 13.2 11.6-15.8 Calcium SerPl-mCnc 05/06/2016 Calcium SerPl-mCnc 8.6 8.5-10.1 Hgb Bld-mCnc 05/06/2016 Hgb Bld-mCnc 15.3 12.8-17.0 MCHC RBC Auto-mCnc 05/06/2016 MCHC RBC Auto-mCnc 33.8 31.7-36.0 MCV RBC Auto 05/06/2016 MCV RBC Auto 88.6 80.0-96.0 Creat SerPl-mCnc 05/06/2016 Creat SerPl-mCnc 1.0 0.6-1.3 Chloride SerPl-sCnc 05/06/2016 Chloride SerPl-sCnc 105 98-107 Laboratory test finding 05/06/2016 BUN/Creatinine Ratio 15.0 Blood Urea Nitrogen 15 7-18 Calcium Level 8.6 8.5-10.1 Carbon Dioxide Level 31 21-32 Chloride Level 105 98-107 Glucose Screen 72 Low 74-106 Mean Corpuscular Hemoglobin 29.9 27.0-33.0 Mean Corpuscular Hemoglobin Concent 33.8 31.7-36.0 Mean Corpuscular Volume 88.6 80.0-96.0 Potassium Level 3.9 3.5-5.1 RDW Coefficient of Variation 13.2 11.6-15.8 Sodium Level 141 136-145 Erythrocyte 05/06/2016 Erythrocyte 1 0-15 Sedimentation Rate Sedimentation Rate Sodium SerPl-sCnc 05/06/2016 Sodium SerPl-sCnc 141 136-145 Co2 SerPl-sCnc 05/06/2016 Co2 SerPl-sCnc 31 21-32 Platelet # Bld Auto 05/06/2016 Platelet # Bld Auto 201 150-400 Erythrocyte 05/06/2016 Erythrocyte 1 0-15 sedimentation rate by sedimentation rate by 15 minute readin 15 minute reading MCH RBC Qn Auto 05/06/2016 MCH RBC Qn Auto 29.9 27.0-33.0 Hct VFr Bld Auto 05/06/2016 Hct VFr Bld Auto 45.3 38.0-48.0 Potassium SerPl-sCnc 05/06/2016 Potassium SerPl-sCnc 3.9 3.5-5.1 Laboratory test 03/30/2016 Magnesium Level 2.4 1.8-2.4 finding Aot Request 03/30/2016 Aot Request Test(s) added 79, 80 Tests to be added: Mg level 79 Miscellaneous Test 03/30/2016 Miscellaneous Test Test(s) added Comment Comment Laboratory test finding 03/30/2016 Thyroid Stim Hormone 0.80 uIU/mL 0.30- 4.20 79 Free T4 1.13 ng/dL 0.76-1.46 79 * Miscellaneous studies 03/30/2016 * Miscellaneous studies Test(s) added (set) (set) Laboratory test finding 03/30/2016 Ethyl Alcohol < 3.0 mg/dL 81 Troponin-I < 0.015 ng/mL 81, 82 Magnesium 2.4 mg/dL 1.8-2.4 81 Laboratory test 03/30/2016 Thyroid Stimulating 0.80 0.30-4.20 finding Hormone (TSH) Urine Drug Screen 03/29/2016 Urine Drug Screen * Information Information Urine Methadone 03/29/2016 Urine Methadone Negative Screen Screen Urine Opiates Screen 03/29/2016 Urine Opiates Screen Negative Laboratory test 03/29/2016 Troponin-I < 0.015 ng/mL 81, 83 finding Drug screen comment 03/29/2016 Drug screen comment * [interpretation] in [interpretation] in urine urine Drugs Of Abuse-Urine 03/29/2016 Amphetamines (Urine) Negative 81 Screen 7 Barbiturates (Urine) Negative 81 Benzodiazepines (Urine) Negative 81 Cannabinoids (Urine) POSITIVE 81 Cocaine Metabolite (Urine) Negative 81 Methadone (Urine) Negative 81 Opiates (Urine) Negative 81 Urine Cutoffs * 81, 84 Urine barbiturate 03/29/2016 Urine barbiturate Negative screening test screening test Urine benzodiazepines 03/29/2016 Urine benzodiazepines Negative measurement by screening measurement by screening met method (mass/volume) Urine cocaine metabolite 03/29/2016 Urine cocaine metabolite Negative screen screen Urine Amphetamines Screen 03/29/2016 Urine Amphetamines Screen Negative Urine opiates detection 03/29/2016 Urine opiates detection Negative by screening method by screening method CBC 03/29/2016 White Blood Count 7.0 K/uL 3.4-10.5 85 Red Blood Count 4.94 M/uL 4.20-5.80 85 Hemoglobin 14.5 gm/dL 12.8-17.0 85 Hematocrit 44.1 % 38.0-48.0 85 Mean Cell Volume 89.3 fl 80.0-96.0 85 Mean Corpuscular HGB 29.4 pg 27.0-33.0 85 Mean Corpuscular HGB Conc 32.9 g/dL 31.7-36.0 85 Platelet Count 202 K/uL 150-400 85 Red Cell Distri Width %CV 13.2 % 11.6-15.8 85 Mean Platelet Volume 10.4 fL 6.6-10.6 85 Urine Barbiturates Screen 03/29/2016 Urine Barbiturates Screen Negative Basic Metabolic Panel 03/29/2016 Glucose 70 mg/dL Low 74-106 85 BUN 19 mg/dL High 7-18 85 Creatinine 1.0 mg/dL 0.6-1.3 85 Glom Filtration Rate, Estimate >60 mL/min >60 85 If >60 mL/min >60 85, 86 BUN/Creat 19.0 ratio 85 Sodium 140 mmol/L 136-145 85 Potassium 3.7 mmol/L 3.5-5.1 85 Chloride 103 mmol/L 98-107 85 Carbon Dioxide 32 mmol/L 21-32 85 Anion Gap 5 mEq/L Low 8-16 85 Calcium 8.5 mg/dL 8.5-10.1 85 Total Creatine Kinase 03/29/2016 Total Creatine Kinase 216 39-308 Urine Benzodiazepines 03/29/2016 Urine Benzodiazepines Negative Screen Screen Urine Cannabinoids 03/29/2016 Urine Cannabinoids Positive High Screen Screen Urine Cocaine Screen 03/29/2016 Urine Cocaine Screen Negative Laboratory test finding 11/07/2012 Activated Partial 33.3 s 22.18-37.18 Thrombo Time D Dimer Quantitative < 200 ng/mL Less Than 230 87 TSH (Thyroid Stimulating Horm) 1.57 miu/mL 0.34-5.60 Troponin I 0 ng/mL 0-0.06 88 CBC Auto Diff 11/07/2012 Abs Basophils 0 10^3/uL 0-0.2 Abs Eosinophils 0.1 10^3/uL 0-0.6 Abs Lymphocytes 1.6 10^3/uL 1.0-4.8 Abs Monocytes 0.4 10^3/uL 0-0.8 Abs Neutrophils 3.1 10^3/uL 1.5-7.7 Abs Nucleated RBC 0 10^3/uL Basophil % 0.6 % 0-2 Eosinophil % 1.7 % 0-6 Granulocyte % 59.6 % 38-83 Hematocrit 45 % 42-52 Hemoglobin 14.5 g/dL 14.0-18.0 Lymphocyte % 30.6 % 25-47 Mean Corpuscular HGB Conc 32 g/dL 31-36 Mean Corpuscular Hemoglobin 28 pg 27-31 Mean Corpuscular Volume 88 fL 80-94 Mean Platelet Volume 9 um3 7.4-10.4 Monocyte % 7.5 % 1-9 Nucleated Red Blood Cells % 0.1 Platelet Count 149 10^3/uL Low 150-450 Red Blood Count 5.13 10^6/uL 4.0-5.4 Red Cell Distribution Width 13 % 10.5-15 White Blood Count 5.3 10^3/uL 4.8-10.8 Comp Metabolic Panel 11/07/2012 Albumin 3.9 g/dL 3.6-5.4 Albumin/Globulin Ratio 1.5 1-3 Alkaline Phosphatase 51 U/L 50-176 Alt 16 U/L 14-54 Anion Gap 5.0 mmol/L 2-11 Ast 26 U/L 12-42 BUN/Creatinine Ratio 13.8 8-20 Blood Urea Nitrogen 11 mg/dL 6-24 Calcium 9.1 mg/dL 8.1-9.9 Chloride 102 mmol/L 101-111 Co2 Carbon Dioxide 30.0 mmol/L 22-32 Creatinine 0.80 mg/dL 0.50-1.40 Egfr 156.9 >60 89 Egfr Non- 122.0 >60 Globulin 2.6 g/dL 2-4 Glucose 85 mg/dL 70-100 Potassium 4.1 mmol/L 3.5-5.0 Sodium 137 mmol/L 133-145 Total Bilirubin 1.0 mg/dL 0.4-1.5 Total Protein 6.5 g/dL 6.2-8.1 Inr/Protime 11/07/2012 Inr 0.92 0.87-0.97 CBC 10/25/2012 Hematocrit 45.9 % 38.0-48.0 Hemoglobin 15.1 gm/dL 12.8-17.0 Mean Cell Volume 87.6 fl 80.0-96.0 Mean Corpuscular HGB 28.8 pg 27.0-33.0 Mean Corpuscular HGB Conc 32.9 g/dL 31.7-36.0 Mean Platelet Volume 10.5 fL 6.6-10.6 Platelet Count 165 K/uL 150-400 Red Blood Count 5.24 M/uL 4.20-5.80 Red Cell Distri Width %CV 13.2 % 11.6-15.8 White Blood Count 6.7 K/uL 3.4-10.5 Comprehensive Metabolic Panel 10/25/2012 Alb/Glob 1.4 ratio Albumin 4.4 g/dL 3.5-5.0 Alkaline Phosphatase 75 U/L 50-136 Anion Gap 15 mEq/L 8-16 BUN 13 mg/dL 5-23 BUN/Creat 11.8 ratio Bilirubin,Total 0.8 mg/dL 0.2-1.2 Calcium 9.4 mg/dL 8.5-10.1 Carbon Dioxide 29 mEq/L 18-29 Chloride 105 mmol/L 98-107 Creatinine 1.1 mg/dL 0.5-1.4 Globulin 3.1 g/dL 1.9-4.3 Glom Filtration Rate, Estimate >60 mL/min >60 Glucose 87 mg/dL 76-115 If >60 mL/min >60 90 Potassium 4.6 mmol/L 3.5-5.1 SGPT/Alt 22 U/L Low 30-65 Sgot/Ast 17 U/L 16-40 Sodium 144 mmol/L 136-145 Total Protein 7.5 g/dL 6.3-8.0 Laboratory test finding 10/25/2012 CK 131 U/L 26-190 Lipase 159 U/L 28-380 Troponin-I < 0.02 ng/mL 0.00-0.50 91 Xray 06/01/2012 CT, Abdomen & Pelvis W <pending> Contrast Laboratory test finding 07/28/2011 CK 141 U/L 26-190 D-Dimer, Quantitative < 0.22 ug/mL 92 Troponin-I < 0.02 ng/mL 0.00-0.50 93 Basic Metabolic Panel 07/28/2011 Anion Gap 14 mEq/L 8-16 BUN 22 mg/dL 5-23 BUN/Creat 20.0 ratio Calcium 8.4 mg/dL Low 8.5-10.1 Carbon Dioxide 25 mEq/L 18-29 Chloride 106 mmol/L 98-107 Creatinine 1.1 mg/dL 0.5-1.4 Glom Filtration Rate, Estimate >60 mL/min >60 Glucose 120 mg/dL High 76-115 If >60 mL/min >60 94 Potassium 3.4 mmol/L Low 3.5-5.1 Sodium 142 mmol/L 136-145 CBC W/Automated Diff 07/28/2011 Bas% 0.4 % 0.1-1.0 Baso # 0.03 K/uL Low 0.1-0.2 Eo% 2.2 % 0.0-5.0 Eos # 0.16 K/uL 0.0-0.5 Hematocrit 41.6 % 38.0-48.0 Hemoglobin 13.5 gm/dL 12.8-17.0 Lymph # 1.87 K/uL 1.2-4.0 Lymph % 25.4 % 17.0-56.0 Mean Cell Volume 87.4 fl 80.0-96.0 Mean Corpuscular HGB 28.4 pg 27.0-33.0 Mean Corpuscular HGB Conc 32.5 g/dL 31.7-36.0 Mean Platelet Volume 10.2 fL 6.6-10.6 [place] # 0.68 K/uL High 0.0-0.6 [place] % 9.2 % 0.0-10.0 Neut# 4.62 K/uL 1.8-7.0 Neut% 62.8 % 28.0-68.0 Platelet Count 204 K/uL 150-400 Red Blood Count 4.76 M/uL 4.20-5.80 Red Cell Distri Width %CV 13.7 % 11.6-15.8 Red Cell Distri Width SD 43.0 fl 36-51 White Blood Count 7.4 K/uL 3.4-10.5 Laboratory test finding 07/02/2011 Lipase 219 U/L 28-380 Basic Metabolic Panel 07/02/2011 Anion Gap 10 mEq/L 8-16 BUN 15 mg/dL 5-23 BUN/Creat 13.6 ratio Calcium 9.0 mg/dL 8.5-10.1 Carbon Dioxide 31 mEq/L High 18-29 Chloride 105 mmol/L 98-107 Creatinine 1.1 mg/dL 0.5-1.4 Glom Filtration Rate, Estimate >60 mL/min >60 Glucose 107 mg/dL 76-115 If >60 mL/min >60 95 Potassium 4.2 mmol/L 3.5-5.1 Sodium 142 mmol/L 136-145 CBC W/Automated Diff 07/02/2011 Bas% 0.4 % 0.1-1.0 Baso # 0.03 K/uL Low 0.1-0.2 Eo% 2.9 % 0.0-5.0 Eos # 0.24 K/uL 0.0-0.5 Hematocrit 43.0 % 38.0-48.0 Hemoglobin 13.5 gm/dL 12.8-17.0 Lymph # 2.03 K/uL 1.2-4.0 Lymph % 24.7 % 17.0-56.0 Mean Cell Volume 89.4 fl 80.0-96.0 Mean Corpuscular HGB 28.1 pg 27.0-33.0 Mean Corpuscular HGB Conc 31.4 g/dL Low 31.7-36.0 Mean Platelet Volume 10.2 fL 6.6-10.6 [place] # 0.60 K/uL 0.0-0.6 [place] % 7.3 % 0.0-10.0 Neut# 5.32 K/uL 1.8-7.0 Neut% 64.7 % 28.0-68.0 Platelet Count 181 K/uL 150-400 Red Blood Count 4.81 M/uL 4.20-5.80 Red Cell Distri Width %CV 13.5 % 11.6-15.8 Red Cell Distri Width SD 43.5 fl 36-51 White Blood Count 8.2 K/uL 3.4-10.5 Liver Function Tests 07/02/2011 Alb/Glob 1.3 ratio Albumin 4.1 g/dL 3.5-5.0 Alkaline Phosphatase 78 U/L 50-136 Bilirubin,Direct 0.1 mg/dL 0.1-0.4 Bilirubin,Indirect 0.1 mg/dL 0.0-0.9 Bilirubin,Total 0.2 mg/dL 0.2-1.2 Globulin 3.1 g/dL 1.9-4.3 SGPT/Alt 22 U/L Low 30-65 Sgot/Ast 16 U/L 16-40 Total Protein 7.2 g/dL 6.3-8.0 1 Because ethnic data is not always readily available, this report includes an eGFR for both -Americans and non- Americans. The National Kidney Disease Education Program (NKDEP) does not endorse the use of the MDRD equation for patients that are not between the ages of 18 and 70, are , have extremes of body size, muscle mass, or nutritional status, or are non- or non-. According to the National Kidney Foundation, irrespective of diagnosis, the stage of the disease is based on the level of kidney function: Stage Description GFR(mL/min/1.73 m(2)) 1 Kidney damage with normal or decreased GFR 90 2 Kidney damage with mild decrease in GFR 60-89 3 Moderate decrease in GFR 30-59 4 Severe decrease in GFR 15-29 5 Kidney failure <15 (or dialysis) 2 [facility] Severe Sepsis and Septic Shock Management Bundle Measure requires all lactic acids initially measuring >2.0 mmol/L be repeated. 3 >100 to <200 pg/mL: likely compensated congestive heart failure (CHF) 200 to 400 pg/mL: likely moderate CHF >400 pg/mL: likely moderate to severe CHF 4 Because ethnic data is not always readily available, this report includes an eGFR for both -Americans and non- Americans. The National Kidney Disease Education Program (NKDEP) does not endorse the use of the MDRD equation for patients that are not between the ages of 18 and 70, are , have extremes of body size, muscle mass, or nutritional status, or are non- or non-. According to the National Kidney Foundation, irrespective of diagnosis, the stage of the disease is based on the level of kidney function: Stage Description GFR(mL/min/1.73 m(2)) 1 Kidney damage with normal or decreased GFR 90 2 Kidney damage with mild decrease in GFR 60-89 3 Moderate decrease in GFR 30-59 4 Severe decrease in GFR 15-29 5 Kidney failure <15 (or dialysis) 5 Z11.3 6 A negative result for either C. trachomatis and/or N. gonorrhoeae does not preclued an infection because results are dependent on adequate specimen collection, absence of inhibitors, and sufficient DNA to be detected. 7 Negative <0.91 Equivocal 0.91 - 1.09 Positive >1.09 Note: Negative indicates no antibodies detected to HSV-1. Equivocal may suggest early infection. If clinically appropriate, retest at later date. Positive indicates antibodies detected to HSV-1. Performed at: [address] [id number] Railroad Hand: Jada Taylor MD, Phone: [phone] 8 Negative <0.91 Equivocal 0.91 - 1.09 Positive >1.09 Note: Negative indicates no antibodies detected to HSV-2. Equivocal may suggest early infection. If clinically appropriate, retest at later date. Positive indicates antibodies detected to HSV-2. Effective January 06, 2018 HSV 2 IgG, Type Spec will be made non-orderable. [facility] offers HSV-2 Type Spec Ab, IgG w/Rflx. This will affect any existing profile. For further information, please contact your local [facility]. 9 INFCE Result Units: copies/mL HIV-1 RNA not detected The reportable range for this assay is 20 to 10,000,000 copies HIV-1 RNA/mL. 10 Unable to calculate result since non-numeric result obtained for component test. 11 [facility] Severe Sepsis and Septic Shock Management Bundle Measure requires all lactic acids initially measuring >2.0 mmol/L be repeated. 12 Please note: The following may produce a false positive D Dimer test: - Rheumatoid factor greater than 60 IU/ml - Plasma hemoglobin greater than 0.05 gm/dl - Bilirubin greater than 50 mg/dl - Lipids greater than 1000 mg/dl - FDP greater than 20 ug/ml 13 Because ethnic data is not always readily available, this report includes an eGFR for both -Americans and non- Americans. The National Kidney Disease Education Program (NKDEP) does not endorse the use of the MDRD equation for patients that are not between the ages of 18 and 70, are , have extremes of body size, muscle mass, or nutritional status, or are non- or non-. According to the National Kidney Foundation, irrespective of diagnosis, the stage of the disease is based on the level of kidney function: Stage Description GFR(mL/min/1.73 m(2)) 1 Kidney damage with normal or decreased GFR 90 2 Kidney damage with mild decrease in GFR 60-89 3 Moderate decrease in GFR 30-59 4 Severe decrease in GFR 15-29 5 Kidney failure <15 (or dialysis) 14 SEE RESULT BELOW Name: NBA LOCKE : [address]: Artie Elizalde MD Acct: [id number] Unit: [id number] AGE: 26 Location: ED Re04/21/17 SEX: M Status: DEP ER SPEC: [id number] QUE: 04/21/[address]: Annabelle BARROSO REQ: [id number] RECD: 04/21/17 STATUS: CHEIKH AVILA DR: Madelaine Elizalde MD _ SOURCE: URINE SPDESC: ORDERED: Urine Culture Procedure Result Reported Site Urine Culture Final 04/22/17- 1324 ML No growth of clinically significant organisms * ML - MAIN LAB ([facility]) . END OF REPORT * ML=Testing performed at Main Lab DEPARTMENT OF PATHOLOGY, [address] [place] [address] Akin Scott M.D. Director [facility] # [id number] 15 Please note: The following may produce a false positive D Dimer test: - Rheumatoid factor greater than 60 IU/ml - Plasma hemoglobin greater than 0.05 gm/dl - Bilirubin greater than 50 mg/dl - Lipids greater than 1000 mg/dl - FDP greater than 20 ug/ml 16 Because ethnic data is not always readily available, this report includes an eGFR for both -Americans and non- Americans. The National Kidney Disease Education Program (NKDEP) does not endorse the use of the MDRD equation for patients that are not between the ages of 18 and 70, are , have extremes of body size, muscle mass, or nutritional status, or are non- or non-. According to the National Kidney Foundation, irrespective of diagnosis, the stage of the disease is based on the level of kidney function: Stage Description GFR(mL/min/1.73 m(2)) 1 Kidney damage with normal or decreased GFR 90 2 Kidney damage with mild decrease in GFR 60-89 3 Moderate decrease in GFR 30-59 4 Severe decrease in GFR 15-29 5 Kidney failure <15 (or dialysis) 17 Low risk: <1.00 Average risk: 1.00-3.00 High risk: >3.00 18 >100 to <200 pg/mL: likely compensated congestive heart failure (CHF) 200 to 400 pg/mL: likely moderate CHF >400 pg/mL: likely moderate to severe CHF 19 B18.2 20 INFCE Result Units: log10 IU/mL 21 The quantitative range of this assay is 15 IU/mL to 100 million IU/mL. Performed at: [address] [id number] [employer]: Jada Taylor MD, Phone: [phone] 22 INFCE Result Units: log10 IU/mL 23 The quantitative range of this assay is 15 IU/mL to 100 million IU/mL. 24 To be performed on this specimen. 25 This test was developed and its performance characteristics determined by [facility]. It has not been cleared or approved by the U.S. Food and Drug Administration. The FDA has determined that such clearance or approval is not necessary. This test is used for clinical purposes. It should not be regarded as investigational or for research. Performed at: [address] [id number] Railroad [employer]: Saulo Johnson MD, Phone: [phone] Performed at: [address] [id number] Railroad [employer]: Saulo Johnson MD, Phone: [phone] Performed at: [address] [id number] Railroad Hand: Adam Conde MD, Phone: [phone] 26 B17.10 27 HCV GenoSure(TM) NS5A Comments: NS5A RAVs at position(s) 28, 30, 31 or 93 NOT DETECTED. If considering an NS5A inhibitor-containing regimen, please refer to the prescribing information, or current guidelines, to determine the appropriate treatment regimen and duration. HCV Genotype: 1a Drug Brand/ Genotypic Generic Name Regimen Assessment Comments -------- NS5AI Daclatasvir Daklinza None/Undetermined DCV RAVs*: None Elbasvir Zepatier None/Undetermined EBR RAVs*: None Ledipasvir Harvoni None/Undetermined LDV RAVs*: None Ombitasvir Viekira Haseeb None/Undetermined OBV RAVs*: None Velpatasvir Epclusa None/Undetermined SHANTE RAVs*: None *RAVs=Resistance Associated Variants detected Summary of All Variants Observed: NS5A V37L, I74V, T79A, K107T, R122K, R123Q, V124E, S131T, I144V, M226E, A245T, I280V, V298I, A310T, R311P, V315I, V326L, R348Q, L368V, P401S, P405A, V410A, G439E, D441G Important Definitions Resistance Possible - Resistance Associated Variants (RAVs) detected that (a) represent naturally-occurring polymorphisms or treatment-emergent variants associated with reductions in sustained virologic response (SVR) rates, (b) emerge during direct-acting antiviral (DAA)-treatment or relapse, and/or (c) may confer reductions in susceptibility based on in vitro data. Refer to prescribing information for specific details regarding the impact of these variants on treatment response in defined patient populations and when administered in combination with other antiviral agents. None/Undetermined - None; no RAVs detected. Undetermined; variants detected that have a subtle or uncertain impact on DAA-treatment responses. All variants are reported relative to the HCV genotype/subtype specific reference H77. Assessment is based on a rules-based algorithm (version 5). Naturally-occurring polymorphisms may impact the emergence of resistance, leading to failure of DAA combination therapy Naturally-occurring DAA resistance-associated polymorphisms identified at baseline may impact SVR if the treatment regimen, or adherence, is suboptimal. The impact of these polymorphisms may vary in treatment-naive and treatment-experienced patients and with varying disease states (e.g. non-cirrhotic vs cirrhotic) Reduced susceptibility to any one component of a DAA-containing regimen may be overcome by the activity of the other components of the regimen and/or longer treatment duration Treatment emergent RAVs may persist for prolonged periods of time and may impact subsequent treatment regimens 28 For more information on interpreting this report, please call [facility] at [phone] between the hours of 6:30am to 5:00pm [place] Time Saturday through Saturday. This assay is performed using a next-generation sequencing platform that analyzes the specified non-structural coding regions of HCV. Variants are reported at a sensitivity that has been demonstrated to be equivalent to that of Mala/population sequencing. Genotype assignment is determined from the sequence of the specified regions that are derived using subtype specific methodology, and should not be used to establish or confirm the HCV genotype. HCV genotype determination should only be done with an assay intended for that purpose. This assay meets the standards for performance characteristics and all other quality assurance qa lab analyst and assurance requirements established by the Clinical Laboratory Improvement Amendments. This assay was validated by testing samples with viral loads equal to or above 500 IU/mL and should be interpreted only on such specimens. The results should not be used as the sole criteria for patient management. The results have been disclosed to you from confidential records protected by law and are not to be disclosed to unauthorized persons. Further disclosure of these results is prohibited without specific consent of the persons to whom it pertains, or as permitted by law. Performed at: [facility] [id number] Railroad Hand: Saulo Johnson MD, Phone: [phone] Performed at: - [facility] [address] [place] [id number] Railroad Hand: Juan Blum MD, Phone: [phone] 29 INFCE Result Units: log10 IU/mL 30 The quantitative range of this assay is 15 IU/mL to 100 million IU/mL. 31 To be performed on this specimen. 32 A3-Severe activity 33 Quantitative results of 6 biochemical tests are analyzed using a computational algorithm to provide a quantitative surrogate marker (0.0-1.0) for liver fibrosis (METAVIR F0- F4) and for necroinflammatory activity (METAVIR A0-A3). 34 <0.21=Stage F0 - No fibrosis 0.21 - 0.27=Stage F0 - F1 0.27 - 0.31=Stage F1 - Portal fibrosis 0.31 - 0.48=Stage F1 - F2 0.48 - 0.58=Stage F2 - Bridging fibrosis with few septa 0.58 - 0.72=Stage F3 - Bridging fibrosis with many septa 0.72 - 0.74=Stage F3 - F4 >0.74=Stage F4 - Cirrhosis 35 <0.17=Grade A0 - No Activity 0.17 - 0.29=Grade A0 - A1 0.29 - 0.36=Grade A1 - Minimal activity 0.36 - 0.52=Grade A1 - A2 0.52 - 0.60=Grade A2 - Moderate activity 0.60 - 0.62=Grade A2 - A3 >0.62=Grade A3 - Severe activity 36 The negative predictive value of a Fibrotest score <0.31 (absence of clinically significant fibrosis) was 85% when compared to liver biopsy in 1,270 HCV infected patients with a 38% prevalence of significant liver fibrosis (F2, 3 or 4). The positive predictive value of a Fibro-test score >0.48 (F2, 3, 4) was 61% in that same patient cohort. HCV FibroSURE is not recommended in patients with Gilbert Disease, acute hemolysis (e.g. HCV ribavirin therapy mediated hemolysis) acute hepa-titis of the liver, extra- hepatic cholestasis, transplant patients, and/or renal insufficiency patients. Any of these clinical situations may lead to inaccurate quantitative predictions of fibrosis and necroinflammatory activity in the liver. 37 This test was developed and its performance characteristics determined by [facility]. It has not been cleared or approved by the Food and Drug Administration. The FDA has determined that such clearance or approval is not necessary. For questions regarding this report please contact customer service at [phone]. 38 This test was developed and its performance characteristics determined by [facility]. It has not been cleared or approved by the U.S. Food and Drug Administration. The FDA has determined that such clearance or approval is not necessary. This test is used for clinical purposes. It should not be regarded as investigational or for research. 39 N/V, HEPATITIS 40 VOMITING, HUGHES, CHEST TIGHT 41 Note: Persistent reduction for 3 months or more in an eGFR <60 mL/min/1.73 m2 defines CKD. Patients with eGFR values >/=60 mL/min/1.73 m2 may also have CKD if evidence of persistent proteinuria is present. The original MDRD equation for estimated GFR is not valid for patients less than 18 years of age. Additional information may be found at www.[email or web address]. 42 0.0 - 0.045 ng/mL: Normal 0.046 - 0.5 ng/mL: Suggestive 0.6 - 1.5 ng/mL: Consistent 43 N/V, HEPATITIS 44 CLAIM ON HOLD FOR OBS HRS 45 NO GROWTH: FINAL REPORT 46 NO GROWTH: FINAL REPORT 47 N/V, HEPATITIS 48 URINE SPECIMENS ARE SCREENED AT THE LISTED CUTOFFS DRUG CLASS INITIAL TEST LEVEL Amphetamines 1000 ng/mL Barbiturates 200 ng/mL Benzodiazepines 200 ng/mL Cannabinoids 50 ng/mL Cocaine Metabolite 300 ng/mL Methadone 300 ng/mL Opiates 300 ng/mL Any PRESUMPTIVE POSITIVE findings are UNCONFIRMED. Confirmatory testing is suggested if findings are unexpected. Please contact laboratory if confirmatory testing is desired. SPECIMENS ARE HELD FOR 72 HOURS. 49 CLAIM ON HOLD FOR OBS HRS 50 NO GROWTH: FINAL REPORT 51 NO GROWTH: FINAL REPORT 52 N/V, HEPATITIS 53 Tests: lipase Instructions: 54 VOMITING, HUGHES, CHEST TIGHT 55 URINE, CLEAN CATCH 56 CLAIM ON HOLD FOR OBS HRS 57 INFCE Result Units: s/co ratio Negative: < 0.8 Indeterminate: 0.8 - 0.9 Positive: > 0.9 The CDC recommends that a positive HCV antibody result be followed up with a HCV Nucleic Acid Amplification test (577759). Performed at: RN - [facility] [address] [id number] [employer]: Jada Taylor MD, Phone: [phone] 58 N/V, HEPATITIS 59 Acetaminophen concentration >150 ug/mL at four hours after ingestion and 50.0 ug/mL at twelve hours after ingestion are often associated with toxic reactions. 60 THERAPEUTIC INR RANGE: 2.0 - 3.0 DVT, Pulmonary embolus, prophylaxis against venous thrombosis or systemic embolization in high risk patients. 2.5 - 3.5 Mechanical heart valves 61 Is patient on heparin protocol? N Is patient on anticoagulants? None 62 DIZZY,FEELS LIKE PASSING OUT 63 <=0.49 ug/mL - Low likelihood of DIC, DVT or Pulmonary Embolism >0.49 ug/mL - Additional testing should be done to rule out DIC, DVT, or Pulmonary embolism as clinically indicated. ([facility] has established a 97.89% negative predictive value for thrombotic disease when a cutoff value of 0.5 ug/mL is used.) 64 0.0 - 0.045 ng/mL: Normal 0.046 - 0.5 ng/mL: Suggestive 0.6 - 1.5 ng/mL: Consistent 65 Note: Persistent reduction for 3 months or more in an eGFR <60 mL/min/1.73 m2 defines CKD. Patients with eGFR values >/=60 mL/min/1.73 m2 may also have CKD if evidence of persistent proteinuria is present. The original MDRD equation for estimated GFR is not valid for patients less than 18 years of age. Additional information may be found at [email or web address]. 66 COLD CHILLS,MIGRAINE HUGHES,NAUSEA 67 0.0 - 0.045 ng/mL: Normal 0.046 - 0.5 ng/mL: Suggestive 0.6 - 1.5 ng/mL: Consistent 68 Note: Persistent reduction for 3 months or more in an eGFR <60 mL/min/1.73 m2 defines CKD. Patients with eGFR values >/=60 mL/min/1.73 m2 may also have CKD if evidence of persistent proteinuria is present. The original MDRD equation for estimated GFR is not valid for patients less than 18 years of age. Additional information may be found at [email or web address]. 69 Values below the stated reference ranges of AST and ALT can be seen in normal populations. Clinical correlation is suggested. 70 <=0.49 ug/mL - Low likelihood of DIC, DVT or Pulmonary Embolism >0.49 ug/mL - Additional testing should be done to rule out DIC, DVT, or Pulmonary embolism as clinically indicated. ([facility] has established a 97.89% negative predictive value for thrombotic disease when a cutoff value of 0.5 ug/mL is used.) 71 TRAUMA 72 0.0 - 0.045 ng/mL: Normal 0.046 - 0.5 ng/mL: Suggestive 0.6 - 1.5 ng/mL: Consistent 73 VOMITING,LIGHTHEADED 74 Note: Persistent reduction for 3 months or more in an eGFR <60 mL/min/1.73 m2 defines CKD. Patients with eGFR values >/=60 mL/min/1.73 m2 may also have CKD if evidence of persistent proteinuria is present. The original MDRD equation for estimated GFR is not valid for patients less than 18 years of age. Additional information may be found at [email or web address]. 75 MIGRAINE HUGHES,CP 76 0.0 - 0.045 ng/mL: Normal 0.046 - 0.5 ng/mL: Suggestive 0.6 - 1.5 ng/mL: Consistent 77 BACK PAIN, CHILLS 78 Note: Persistent reduction for 3 months or more in an eGFR <60 mL/min/1.73 m2 defines CKD. Patients with eGFR values >/=60 mL/min/1.73 m2 may also have CKD if evidence of persistent proteinuria is present. The original MDRD equation for estimated GFR is not valid for patients less than 18 years of age. Additional information may be found at [email or web address]. 79 [id number] TERMED 80 Tests: Mg level Instructions: 81 SYNCOPY, ABN EKG 82 0.0 - 0.045 ng/mL: Normal 0.046 - 0.5 ng/mL: Suggestive 0.6 - 1.5 ng/mL: Consistent 83 0.0 - 0.045 ng/mL: Normal 0.046 - 0.5 ng/mL: Suggestive 0.6 - 1.5 ng/mL: Consistent 84 URINE SPECIMENS ARE SCREENED AT THE LISTED CUTOFFS DRUG CLASS INITIAL TEST LEVEL Amphetamines 1000 ng/mL Barbiturates 200 ng/mL Benzodiazepines 200 ng/mL Cannabinoids 50 ng/mL Cocaine Metabolite 300 ng/mL Methadone 300 ng/mL Opiates 300 ng/mL Any PRESUMPTIVE POSITIVE findings are UNCONFIRMED. Confirmatory testing is suggested if findings are unexpected. Please contact laboratory if confirmatory testing is desired. SPECIMENS ARE HELD FOR 72 HOURS. 85 FELL,BUMPED HEAD,LUMP ON BACK OF HEAD,DIZZY 86 Note: Persistent reduction for 3 months or more in an eGFR <60 mL/min/1.73 m2 defines CKD. Patients with eGFR values >/=60 mL/min/1.73 m2 may also have CKD if evidence of persistent proteinuria is present. The original MDRD equation for estimated GFR is not valid for patients less than 18 years of age. Additional information may be found at [email or web address]. 87 Please note: The following may produce a false positive D Dimer test: - Rheumatoid factor greater than 60 IU/ml - Plasma hemoglobin greater than 0.05 gm/dl - Bilirubin greater than 50 mg/dl - Lipids greater than 1000 mg/dl - FDP greater than 20 ug/ml 88 Reference Range and Interpretation: TnI (ng/mL) Interpretation Less Than 0.06 ng/mL Not supportive of diagnosis of RI 0.06 - 0.50 ng/mL Indeterminate: suggest serial studies if clinically indicated. Greater than 0.5 ng/mL Consistent with diagnosis of RI 89 Because ethnic data is not always readily available, this report includes an eGFR for both -Americans and non- Americans. The National Kidney Disease Education Program (NKDEP) does not endorse the use of the MDRD equation for patients that are not between the ages of 18 and 70, are , have extremes of body size, muscle mass, or nutritional status, or are non- or non-. According to the National Kidney Foundation, irrespective of diagnosis, the stage of the disease is based on the level of kidney function: Stage Description GFR(mL/min/1.73 m(2)) 1 Kidney damage with normal or decreased GFR 90 2 Kidney damage with mild decrease in GFR 60- 89 3 Moderate decrease in GFR 30-59 4 Severe decrease in GFR 15-29 5 Kidney failure <15 (or dialysis) 90 Note: Persistent reduction for 3 months or more in an eGFR <60 mL/min/1.73 m2 defines CKD. Patients with eGFR values >/=60 mL/min/1.73 m2 may also have CKD if evidence of persistent proteinuria is present. The original MDRD equation for estimated GFR is not valid for patients less than 18 years of age. Additional information may be found at www.[email or web address]. 91 0 - 0.5 ng/mL: No evidence of myocardial injury 0.6 - 1.4 ng/mL: Mild elevation, suggesting possible myocardial injury > 1.4 ng/mL: Consistent with myocardial injury 92 <=0.49 ug/mL - Low likelihood of DIC, DVT or Pulmonary Embolism >0.49 ug/ mL - Additional testing should be done to rule out DIC, DVT, or Pulmonary embolism as clinically indicated. ([facility] has established a 97.89% negative predictive value for thrombotic disease when a cutoff value of 0.5 ug/mL is used.) 93 0 - 0.5 ng/mL: No evidence of myocardial injury 0.6 - 1.4 ng/mL: Mild elevation, suggesting possible myocardial injury > 1.4 ng/mL: Consistent with myocardial injury 94 Note: Persistent reduction for 3 months or more in an eGFR <60 mL/min/1.73 m2 defines CKD. Patients with eGFR values >/=60 mL/min/1.73 m2 may also have CKD if evidence of persistent proteinuria is present. The original MDRD equation for estimated GFR is not valid for patients less than 18 years of age. Additional information may be found at www.[facility].org. 95 Note: Persistent reduction for 3 months or more in an eGFR <60 mL/min/1.73 m2 defines CKD. Patients with eGFR values >/=60 mL/min/1.73 m2 may also have CKD if evidence of persistent proteinuria is present. The original MDRD equation for estimated GFR is not valid for patients less than 18 years of age. Additional information may be found at www.[facility].org. Procedures Date CPT Code Description Status 04/16/2018 61016 Brief Emotional/Behav Assessment W/ Scoring Doc Per Completed Standard Inst 04/16/2018 45990 Pacemaker/Cardio-Defibrillator Remote Data Acquistion Completed 04/16/2018 92934 Remote Icd Monitor Completed 07/02/2017 50797 Cardioversion/Defibril. Single Lead Pacemaker Completed 07/02/2017 11106 EKG-Tracing And Report Completed 11/20/2016 93162 Cardioversion/Defibrillation Dual Pacemaker Completed 11/20/2016 27376 Cardioversion/Defibrillation Dual Pacemaker Completed 11/06/2016 76461 Cardioversion/Defibrillation Dual Pacemaker Completed 11/06/2016 59841 Cardioversion/Defibrillation Dual Pacemaker Completed 09/05/2016 43617 Remote Icd Monitor Completed 09/05/2016 07488 Remote Icd Monitor Completed 09/05/2016 40452 Pacemaker/Cardio-Defibrillator Remote Data Acquistion Completed 09/05/2016 20030 Pacemaker/Cardio-Defibrillator Remote Data Acquistion Completed 06/19/2016 12272 Cardioversion/Defibrillation Dual Pacemaker Completed 04/24/2016 09451 EKG-Tracing And Report Completed 04/02/2016 68983 Event Monitor Inter/Review Only Completed 03/29/2016 44903 Echocardiogram Complete Completed 01/24/2011 88875 Visual Screening Test Of Visual Acuity, Quantitative, Completed Bilateral Encounters Type Date Location Provider CPT E/M Dx Office Visit 04/16/2018 11:30a Family Medicine Gifty Danielle PNP-CALOS, 31564 F33.1 COLLATERAL SPECIALIST, Ibclc F41.9 Z23 Office Visit 11/26/2017 11:00a Family Medicine Gifty Danielle PNP-BC, 67985 R07.9 COLLATERAL SPECIALIST, Ibclc I45.81 Z11.3 Office Visit 07/02/2017 8:20a [place] [address] R07.9 R00.2 I45.81 Z95.810 Office Visit 04/11/2017 11:30a Family Medicine Gifty Danielle, PNP-BC, 25804 F41.9 COLLATERAL SPECIALIST, Ibclc F33.1 Office Visit 03/26/2017 2:30[place] [address] B18.2 Office Visit 02/22/2017 9:30a Family Medicine Family Nurse 00467 Z11.1 Office Visit 02/19/2017 1:45p Family Medicine Gifty Danielle, PNP-BC, 43913 J30.9 COLLATERAL SPECIALIST, Ibclc H66.92 Z11.1 Office Visit 02/14/2017 2:00p [place] [address] B18.2 Office Visit 12/11/2016 2:00[place] [address] B17.10 Office Visit 12/03/2016 1:30p Family Medicine Gifty Danielle PNP-BC, 37344 B18.2 COLLATERAL SPECIALIST, Ibclc Z95.810 I49.5 Office Visit 11/25/2016 9:26[place] [address] R10.9 R10.9 R11.2 Office Visit 06/19/2016 9:15a Cardiology Office Felisha Shereenling [place], 25146 R55 MSN, COLLATERAL SPECIALIST Z95.810 Office Visit 04/24/2016 10:40a Cardiology [place] Faustin [place]P 39283 R55 R94.31 Office Visit 03/30/2016 3:23p Cardiology Office Michael Bowman M.D. 77526 R55 R94.31 Plan of Care Future Appointment(s):08/20/2018 8:10 am - TTM Check at Cardiology [id number] - Gifty Danielle PNP-BC, COLLATERAL SPECIALIST, [id number] Major depressive disorder, recurrent, [id number] Anxiety disorder, unspecifiedNew Medication:Sertraline HCL 100 mgComments:since you are not good about coming back call me if no improvement in 4-6 weeks.Z23 Encounter for immunization
[2018-04-18] MEDS ORDERED: Albuterol/Ipratropium NEB.SOL* Albuterol 2.5 MG/Ipratropium 0.5 MG 3 ML INH ONE (14:43)
[2018-04-18] MEDS ORDERED: NS 0.9% 1000 ML* 2,000 ML IV ONE (14:43)
[2018-04-18] MEDS ORDERED: Ibuprofen TAB* 600 MG PO ONE (14:43)
--- NOTE | 2018-04-18 15:07 | ED ---
Shortness of Breath - HPI Summary HPI Summary: Patient is a 27 y/o M w/ c/o SOB onsetting today. He states that he went out this morning to try to shovel the snow in his driveway. While doing so, patient began to experience SOB. He took a break, SOB passed, and he resumed shovelling. SOB onset once more, patient went inside to rest. At this time, he was experiencing light-headedness, sharp pain at ribs with radiation to "all over his body", HUGHES, and fatigue. He states ate breakfast, while he was doing so his roommate reportedly shouted his name at him 4-5 times as he seemed "out of it" but patient states he did not hear him. Syncope is denied. Chills endorsed in the room. He notes intermittent cough and rhinorrhea. In room, he states he feels "crappy". PMHx of arrhythmia, has pacemaker. Patient is on magnesium, carvedilol and sertalin. Pain is reported to be intermittent, patient is a former smoker. Ep Technologist is Dr. Madera in [place]. He denies sore throat, diarrhea. Patient notes he vomited yesterday. He had a flu shot a week ago. Fever, erythema at eyes, sore throat, abdominal pain, dysuria, hematuria, myalgia, edema, rash are not reported. On triage, pain is rated 5/10, nothing is noted to aggravate/alleviate Sx. Home medications and allergies are reviewed. - History of Current Complaint Chief Complaint: EDWeakness Time Seen by Provider: 04/18/18 14:00 Hx Obtained From: Patient Onset/Duration: Sudden Onset, Lasting Minutes, Still Present - patient states he feels "crappy" Timing: Intermittent Episodes Lasting: Current Severity: Moderate - 5/10 on triage Aggrevating Factors: Nothing Alleviating Factors: Nothing Associated Signs & Symptoms: Cough (Nonproductive), Chills, Nasal Congestion - rhinorrhea, Dizzy - Allergy/Home Medications Allergies/Adverse Reactions: Allergies Allergy/AdvReac Type Severity Reaction Status Date / Time sertraline [From Zoloft] Allergy GI Upset Verified 03/09/18 15:08 Home Medications: Home Medications Magnesium Oxide TAB* [MagOx 400 TAB*] 400 mg PO DAILY 04/18/18 [History Confirmed 04/18/18] Sertraline* [Zoloft*] 50 mg PO DAILY 04/18/18 [History Confirmed 04/18/18] PMH/Surg Hx/FS Hx/Imm Hx Endocrine/Hematology History: Denies: Hx Anticoagulant Therapy Cardiovascular History: Reports: Hx Pacemaker/ICD, Other Cardiovascular Problems /Disorders - long QT Respiratory History: Denies: Hx Asthma, Hx Chronic Obstructive Pulmonary Disease (COPD) GI History: Reports: Other GI Disorders - elevated LFT Sensory History: Denies: Hx Legally Blind, Hx Deafness Opthamlomology History: Denies: Hx Legally Blind Neurological History: Reports: Other Neuro Impairments/Disorders - scoliosis, Psychiatric History: Reports: Hx Anxiety, Hx Depression - Surgical History Surgery Procedure, Year, and Place: TUBES IN EARS - Immunization History Date of Influenza Vaccine: has not received Infectious Disease History: No Infectious Disease History: Denies: Traveled Outside the [place] in Last 30 Days - Family History Known Family History: Positive: Cardiac Disease - Social History Alcohol Use: None Hx Substance Use: No Substance Use Type: Reports: None Hx Tobacco Use: Yes Smoking Status (MU): Former Smoker Type: Cigarettes Review of Systems Positive: Chills, Fatigue. Negative: Fever Negative: Erythema Positive: Nasal Discharge - rhinorrhea . Negative: Sore Throat Positive: Chest Pain - reports pain at ribs Positive: Shortness Of Breath, Cough Positive: Vomiting - yesterday , Nausea - yesterday . Negative: Diarrhea Negative: dysuria, hematuria Negative: Myalgia, Edema Negative: Rash Neurological: Other - POSITIVE - DIZZINESS Negative: Syncope All Other Systems Reviewed And Are Negative: Yes Physical Exam - Summary Physical Exam Summary: Constitutional: Well-developed, Well-nourished, Alert. (-) Distressed (+) ill- appearing Skin: Warm, Dry HENT: Normocephalic; Atraumatic Eyes: Conjunctiva normal Neck: Musculoskeletal ROM normal neck. (-) JVD, (-) Stridor, (-) Tracheal deviation Cardio: Rhythm regular, rate normal, Heart sounds normal; Intact distal pulses; The pedal pulses are 2+ and symmetric. Radial pulses are 2+ and symmetric. (-) Murmur Pulmonary/Chest wall: Effort normal. (-) Respiratory distress, (+) Mild wheezes , (-) Rales (+) diminished breath sounds Abd: Soft, (-) epigastric tenderness, (-) Distension, (-) Guarding, (-) Rebound Musculoskeletal: (-) Edema Lymph: (-) Cervical adenopathy Neuro: Alert, Oriented x3 Psych: Mood and affect Normal Triage Information Reviewed: Yes Vital Signs On Initial Exam: Initial Vitals Temp Pulse Resp BP Pulse Ox 99.5 F 57 16 98/53 98 04/18/18 13:58 04/18/18 13:58 04/18/18 13:58 04/18/18 13:58 04/18/18 13:58 Vital Signs Reviewed: Yes Diagnostics - Vital Signs Vital Signs Temp Pulse Resp BP Pulse Ox 04/18/18 13:58 99.5 F 57 16 98/53 98 - Laboratory Lab Results: Lab Results 04/18/18 04/18/18 04/18/18 Range/Units 14:09 14:09 14:09 WBC 6.8 (3.5-10.8) 10^3/ul RBC 4.60 (4.00-5.40) 10^6/ul Hgb 13.2 L (14.0-18.0) g/dl Hct 40 L (42-52) % MCV 87 (80-94) fL MCH 29 (27-31) pg MCHC 33 (31-36) g/dl RDW 14 (10.5-15) % Plt Count 139 L (150-450) 10^3/ul MPV 7.9 (7.4-10.4) fL Neut % (Auto) 65.4 (38-83) % Lymph % (Auto) 24.7 L (25-47) % [place] % (Auto) 7.4 H (0-7) % Eos % (Auto) 1.8 (0-6) % Baso % (Auto) 0.7 (0-2) % Absolute Neuts (auto) 4.4 (1.5-7.7) 10^3/ul Absolute Lymphs (auto) 1.7 (1.0-4.8) 10^3/ul Absolute Monos (auto) 0.5 (0-0.8) 10^3/ul Absolute Eos (auto) 0.1 (0-0.6) 10^3/ul Absolute Basos (auto) 0.1 (0-0.2) 10^3/ul Absolute Nucleated RBC 0 10^3/ul Nucleated RBC % 0.1 Sodium 140 (135-145) mmol/L Potassium 4.0 (3.5-5.0) mmol/L Chloride 105 (101-111) mmol/L Carbon Dioxide 30 (22-32) mmol/L Anion Gap 5 (2-11) mmol/L BUN 22 (6-24) mg/dL Creatinine 0.90 (0.67-1.17) mg/dL Est GFR ( Amer) 123.4 (>60) Est GFR (Non-Af Amer) 102.0 (>60) BUN/Creatinine Ratio 24.4 H (8-20) Glucose 81 (70-100) mg/dL Lactic Acid 0.3 L (0.5-2.0) mmol/L Calcium 9.0 (8.6-10.3) mg/dL Total Bilirubin 0.40 (0.2-1.0) mg/dL AST 15 (13-39) U/L ALT 9 (7-52) U/L Alkaline Phosphatase 57 (34-104) U/L Troponin I 0.00 (<0.04) ng/mL Total Protein 6.3 L (6.4-8.9) g/dL Albumin 4.1 (3.2-5.2) g/dL Globulin 2.2 (2-4) g/dL Albumin/Globulin Ratio 1.9 (1-3) Result Diagrams: 04/18/18 14:09 04/18/18 14:09 Lab Statement: Any lab studies that have been ordered have been reviewed, and results considered in the medical decision making process. - Radiology CXR Radiology Interpretation Completed By: Radiologist Summary of Radiographic Findings: CXR IMPRESSION: #. No acute cardiopulmonary process evident. THIS REPORT WAS REVIEWED BY ED PHYSICIAN. - EKG 1425 Cardiac Rate: Bradycardia - RATE OF 53 BPM EKG Rhythm: Sinus Bradycardia Summary of EKG Findings: EKG SHOWED SINUS BRADYCARDIA WITH RATE OF 53 BPM, NO STEMI Re-Evaluation - Re-Evaluation First Eval Re-Evaluation Time: 20:20 Change: Improved Comment: Results of labs and tests were discussed with patient. In room, he states he feels better. Patient is agreeable with discharge and PCP follow up. Course/Dx - Course Course Of Treatment: Patient is a 27 y/o M w/ c/o SOB onsetting today. He states that he went out this morning to try to shovel the snow in his driveway. While doing so, patient began to experience SOB. He took a break, SOB passed, and he resumed shovelling. SOB onset once more, patient went inside to rest. At this time, he was experiencing light-headedness, sharp pain at ribs with radiation to "all over his body", HUGHES, and fatigue. He states ate breakfast, while he was doing so his roommate reportedly shouted his name at him 4-5 times as he seemed "out of it" but patient states he did not hear him. Syncope is denied. Chills endorsed in the room. He notes intermittent cough and rhinorrhea. In room, he states he feels "crappy". PMHx of arrhythmia, has pacemaker. Patient is on magnesium, carvedilol and sertalin. Pain is reported to be intermittent, patient is a former smoker. Ep Technologist is Dr. Madera in [place]. He denies sore throat, diarrhea. Patient notes he vomited yesterday. He had a flu shot a week ago. On physical exam, patient is noted to be ill- appearing, have diminished breath sounds bilaterally, and mild wheezing. During ED course, patient received duoneb x1, 600 mg Motrin tab, fluids., deltasone tab 20 mg PO, and Ventolin Hfa Inhaler 1 puff INH ED ONCE ONE. Labs showed negative influenza A,B. First, second, and third trops were negative. Labs showed Hgb 13.2, Hct 40, Plt 139, lymph% 24.7, mono% 7.4, BUN/creatinine ratio 24.4, lactic acid 0.3. CXR IMPRESSION: #. No acute cardiopulmonary process evident. EKG SHOWED SINUS BRADYCARDIA WITH RATE OF 53 BPM, NO STEMI. Results of labs and tests were discussed with patient. In room, he states he feels better. Patient is agreeable with discharge and PCP follow up. Dx of bronchitis. - Diagnoses Provider Diagnoses: Bronchitis Discharge - Sign-Out/Discharge Documenting (check all that apply): Patient Departure - discharge - Discharge Plan Condition: Stable Disposition: HOME Prescriptions: DOXYcycline CAP(*) [DOXYcycline 100MG CAP(*)] 100 mg PO BID #10 cap predniSONE TAB* [Deltasone 20 MG TAB*] 20 mg PO DAILY #4 tab Patient Education Materials: Acute Bronchitis (ED) Referrals: Madelaine Bell MD [Primary Care Provider] - 2 Days Additional Instructions: RETURN TO EMERGENCY DEPARTMENT FOR ANY NEW OR WORSENING SYMPTOMS. - Attestation Statements Document Initiated by Scribe: Yes Documenting Scribe: JENNIFER HOPKINS Provider For Whom Scribe is Documenting (Include Credential): SHELLIE KINCAID MD Scribe Attestation: IJENNIFER , scribed for SHELLIE KINCAID MD on 04/18/18 at 2052.
[2018-04-18] MEDS ORDERED: predniSONE TAB* 20 MG PO ONE (20:31)
[2018-04-18] MEDS ORDERED: Albuterol HFA INHALER* 8 gm MDI INH ONE (20:31)
[2018-04-18 20:57] VITALS: BP 107/66
== END 2018-04-18 20:56 | disposition home or self-care (01) ==
LOC: ED 13:53
DX: J40 Bronchitis, not specified as acute or chronic (principal); R00.1 Bradycardia, unspecified; Z88.8 Allergy status to other drugs, medicaments and biological substances; Z87.891 Personal history of nicotine dependence
CPT/HCPCS: 36415; 71045; 80053; 83605; 84484; 85025; 93005; 96360; 99282; A9270-GY; J7512

== ENCOUNTER 2018-05-14 16:45 | Emergency (ER) | payer MEDICAID ==
[2018-05-14 18:40] LABS: ABS Basophils 0 10^3/ul (0-0.2); ABS Eosinophils 0 10^3/ul (0-0.6); ABS Lymphocytes 1.3 10^3/ul (1.0-4.8); ABS Monocytes 0.4 10^3/ul (0-0.8); ABS Neutrophils 4.9 10^3/ul (1.5-7.7); ABS Nucleated RBC 0 10^3/ul; Eosinophil % 0.6 %; Hematocrit 42 % (42-52); Hemoglobin 13.9 g/dl (14.0-18.0); Lymphocyte % 18.8 %; Mean Corpuscular HGB Conc 33 g/dl (31-36); Mean Corpuscular Hemoglobin 29 pg (27-31); Mean Corpuscular Volume 88 fL (80-94); Mean Platelet Volume 7.8 fL (7.4-10.4); Nucleated Red Blood Cells % 0.1; Platelet Count 141 10^3/ul (150-450); Red Blood Count 4.76 10^6/ul (4.00-5.40); Red Cell Distribution Width 14 % (10.5-15); White Blood Count 6.7 10^3/ul (3.5-10.8)
[2018-05-14 19:09] LABS: EGFR Non-African American 86.3 (>60)
--- NOTE | 2018-05-14 19:57 | ED ---
Headache - HPI Summary HPI Summary: This patient is a 27 year old M presenting to [facility] with a chief complaint of migraine HUGHES since 08:00 this morning. The patient rates the pain 6/10 in severity. Symptoms aggravated by nothing. Symptoms alleviated by nothing. Patient reports dizziness, chest pain, and lightheadedness. Patient reports that he takes magnesium and medications for his heart. Patient has had an ICD since 2016 but notes it has never fired. - History Of Current Complaint Chief Complaint: EDGeneral Stated Complaint: CHEST PAIN/DIZZY Time Seen by Provider: 05/14/18 19:48 Hx Obtained From: Patient Onset/Duration: Gradual Onset, Started hours ago, Still Present Initially Headache Was: Mild Currently Pain Is: Mild Timing: Constant Character: Migraine Aggravating Factor: Nothing Allevating Factors: Nothing Associated Signs And Symptoms: Dizziness, Other (Noted In Comments) - chest pain , lightheadedness - Allergies/Home Medications Allergies/Adverse Reactions: Allergies Allergy/AdvReac Type Severity Reaction Status Date / Time sertraline [From Zoloft] Allergy GI Upset Verified 03/09/18 15:08 PMH/Surg Hx/FS Hx/Imm Hx Endocrine/Hematology History: Denies: Hx Anticoagulant Therapy Cardiovascular History: Reports: Hx Pacemaker/ICD, Other Cardiovascular Problems /Disorders - long QT Respiratory History: Denies: Hx Asthma, Hx Chronic Obstructive Pulmonary Disease (COPD) GI History: Reports: Other GI Disorders - elevated LFT Sensory History: Denies: Hx Legally Blind, Hx Deafness Opthamlomology History: Denies: Hx Legally Blind Neurological History: Reports: Other Neuro Impairments/Disorders - scoliosis, Psychiatric History: Reports: Hx Anxiety, Hx Depression - Surgical History Surgery Procedure, Year, and Place: TUBES IN EARS - Immunization History Date of Influenza Vaccine: has not received Infectious Disease History: No Infectious Disease History: Denies: Traveled Outside the [place] in Last 30 Days - Family History Known Family History: Positive: Cardiac Disease - Social History Alcohol Use: None Hx Substance Use: No Substance Use Type: Reports: None Hx Tobacco Use: Yes Smoking Status (MU): Former Smoker Type: Cigarettes Review of Systems Negative: Fever Positive: Chest Pain Negative: Cough Negative: Vomiting Neurological: Other - positive dizziness, positive lightheadedness Positive: Headache All Other Systems Reviewed And Are Negative: Yes Physical Exam - Summary Physical Exam Summary: VITAL SIGNS: Reviewed. GENERAL: Patient is a well-developed and nourished MALE who is lying comfortable in the stretcher. Patient is not in any acute respiratory distress. HEAD AND FACE: No signs of trauma. No ecchymosis, hematomas or skull depressions. No sinus tenderness. EYES: PERRLA, EOMI x 2, No injected conjunctiva, no nystagmus. EARS: Hearing grossly intact. Ear canals and tympanic membranes are within normal limits. MOUTH: Oropharynx within normal limits. NECK: Supple, trachea is midline, no adenopathy, no JVD, no carotid bruit, no c- spine tenderness, neck with full ROM. CHEST: Symmetric, no tenderness at palpation LUNGS: Clear to auscultation bilaterally. No wheezing or crackles. CVS: Regular rate and rhythm, S1 and S2 present, no murmurs or gallops appreciated. ABDOMEN: Soft, non-tender. No signs of distention. No rebound no guarding, and no masses palpated. Bowel sounds are normal. EXTREMITIES: FROM in all major joints, no edema, no cyanosis or clubbing. NEURO: Alert and oriented x 3. No acute neurological deficits. Speech is normal and follows commands. SKIN: Dry and warm Triage Information Reviewed: Yes Vital Signs On Initial Exam: Initial Vitals Temp Pulse Resp BP Pulse Ox 97.9 F 58 16 105/59 97 05/14/18 16:49 05/14/18 16:49 05/14/18 16:49 05/14/18 16:49 05/14/18 16:49 Vital Signs Reviewed: Yes Diagnostics - Vital Signs Vital Signs Temp Pulse Resp BP Pulse Ox 05/14/18 19:15 99.7 F 58 16 102/55 98 05/14/18 16:49 97.9 F 58 16 105/59 97 - Laboratory Lab Results: Lab Results 05/14/18 05/14/18 05/14/18 Range/Units 18:30 18:30 18:30 WBC 6.7 (3.5-10.8) 10^3/ul RBC 4.76 (4.00-5.40) 10^6/ul Hgb 13.9 L (14.0-18.0) g/dl Hct 42 (42-52) % MCV 88 (80-94) fL MCH 29 (27-31) pg MCHC 33 (31-36) g/dl RDW 14 (10.5-15) % Plt Count 141 L (150-450) 10^3/ul MPV 7.8 (7.4-10.4) fL Neut % (Auto) 73.5 % Lymph % (Auto) 18.8 % [place] % (Auto) 6.6 % Eos % (Auto) 0.6 % Baso % (Auto) 0.5 % Absolute Neuts (auto) 4.9 (1.5-7.7) 10^3/ul Absolute Lymphs (auto) 1.3 (1.0-4.8) 10^3/ul Absolute Monos (auto) 0.4 (0-0.8) 10^3/ul Absolute Eos (auto) 0 (0-0.6) 10^3/ul Absolute Basos (auto) 0 (0-0.2) 10^3/ul Absolute Nucleated RBC 0 10^3/ul Nucleated RBC % 0.1 Sodium 141 (135-145) mmol/L Potassium 4.0 (3.5-5.0) mmol/L Chloride 104 (101-111) mmol/L Carbon Dioxide 32 (22-32) mmol/L Anion Gap 5 (2-11) mmol/L BUN 18 (6-24) mg/dL Creatinine 1.04 (0.67-1.17) mg/dL Est GFR ( Amer) 104.5 (>60) Est GFR (Non-Af Amer) 86.3 (>60) BUN/Creatinine Ratio 17.3 (8-20) Glucose 112 H (70-100) mg/dL Lactic Acid 0.7 (0.5-2.0) mmol/L Calcium 9.0 (8.6-10.3) mg/dL Magnesium 2.0 (1.9-2.7) mg/dL Total Bilirubin 0.50 (0.2-1.0) mg/dL AST 16 (13-39) U/L ALT 9 (7-52) U/L Alkaline Phosphatase 59 (34-104) U/L Troponin I 0.00 (<0.04) ng/mL Total Protein 6.8 (6.4-8.9) g/dL Albumin 4.4 (3.2-5.2) g/dL Globulin 2.4 (2-4) g/dL Albumin/Globulin Ratio 1.8 (1-3) TSH 1.85 (0.34-5.60) mcIU/mL Result Diagrams: 05/14/18 18:30 05/14/18 18:30 Lab Statement: Any lab studies that have been ordered have been reviewed, and results considered in the medical decision making process. Re-Evaluation - Re-Evaluation first re-eval Re-Evaluation Time: 20:53 Change: Improved Comment: Patient reports that he is feeling better and wants to go home. Headache Course/Dx - Course Course Of Treatment: This patient is a 27 year old M with an ICD reports migraine HUGHES, dizziness, chest pain, and lightheadedness since 08:00 this morning. Test results with no significant abnormalities. In the ED course the patient was given Toradol, Reglan, and Benadryl. Upon re-evaluation at 20:53, patient reports feeling better and he wants to go home. Patient will be discharged home with follow up from PCP. The patient is agreeable with this plan. - Diagnoses Provider Diagnoses: Headache Discharge - Sign-Out/Discharge Documenting (check all that apply): Patient Departure - Discharge Plan Condition: Stable Disposition: HOME Patient Education Materials: Acute Headache (ED) Referrals: Madelaine Bell MD [Primary Care Provider] - Additional Instructions: Follow up with primary care physician in 2-3 days. Return to the emergency department with any new or worsening symptoms. - Billing Disposition and Condition Condition: STABLE Disposition: Home - Attestation Statements Document Initiated by Nikoibe: Yes Documenting Scribe: Annabelle Burdick Provider For Whom Minor is Documenting (Include Credential): Kellen Cruz MD Scribe Attestation: Annabelle Pace, scribed for Kellen Cruz MD on 05/15/18 at 0629. Scribe Documentation Reviewed: Yes Provider Attestation: The documentation as recorded by the Annabelle sam accurately reflects the service I personally performed and the decisions made by , Kellen Cruz MD Status of Scribe Document: Viewed
[2018-05-14] MEDS ORDERED: Ketorolac INJ* 30 MG/ML 1 ML VIAL IV PUSH ONE (20:06)
[2018-05-14] MEDS ORDERED: Metoclopramide IV* 5 MG/ML 2 ML VIAL IV SLOW PU ONE (20:07)
[2018-05-14] MEDS ORDERED: diPHENhydraMINE PO* 50 MG PO ONE (20:07)
[2018-05-14 21:38] VITALS: BP 131/69
== END 2018-05-14 21:38 | disposition home or self-care (01) ==
LOC: ED 16:45
DX: R51 Headache (principal); Z95.810 Presence of automatic (implantable) cardiac defibrillator; F32.9 Major depressive disorder, single episode, unspecified; F41.9 Anxiety disorder, unspecified; Z87.891 Personal history of nicotine dependence
CPT/HCPCS: 36415; 80053; 83605; 83735; 84443; 84484; 85025; 96374; 96375; 99282; A9270-GY; J1885; J2765

== ENCOUNTER 2018-07-27 16:17 | Emergency (ER) | payer MEDICAID ==
[2018-07-27] MEDS ORDERED: diPHENhydraMINE IV* 50 MG/ML 1 ml VIAL (BENADRYL) IV ONE (19:13)
[2018-07-27] MEDS ORDERED: Metoclopramide IV* 5 MG/ML 2 ML VIAL IV ONE (19:13)
[2018-07-27] MEDS ORDERED: Acetaminophen TAB* 325 MG PO ONE (19:13)
[2018-07-27] MEDS ORDERED: NS 0.9% 1000 ML** 1,000 ML IV ONE (19:13)
[2018-07-27 19:36] LABS: ABS Basophils 0.1 10^3/ul (0-0.2); ABS Eosinophils 0.2 10^3/ul (0-0.6); ABS Lymphocytes 1.9 10^3/ul (1.0-4.8); ABS Monocytes 0.5 10^3/ul (0-0.8); ABS Nucleated RBC 0 10^3/ul; Eosinophil % 3.8 %; Hematocrit 43 % (42-52); Lymphocyte % 32.9 %; Mean Corpuscular HGB Conc 33 g/dl (31-36); Mean Corpuscular Hemoglobin 28 pg (27-31); Mean Corpuscular Volume 85 fL (80-94); Mean Platelet Volume 8.7 fL (7.4-10.4); Nucleated Red Blood Cells % 0; Platelet Count 161 10^3/ul (150-450); Red Blood Count 5.02 10^6/ul (4.00-5.40); Red Cell Distribution Width 13 % (10.5-15); White Blood Count 5.7 10^3/ul (3.5-10.8)
[2018-07-27 19:41] LABS: INR 1.16 (0.77-1.02)
[2018-07-27 19:51] LABS: Albumin 4.1 g/dL (3.2-5.2); Albumin/Globulin Ratio 1.8 (1-3); BUN/Creatinine Ratio 21.9 (8-20); Calcium 8.6 mg/dL (8.6-10.3); EGFR African American 114.6 (>60); EGFR Non-African American 94.7 (>60); Globulin 2.3 g/dL (2-4); Potassium 3.9 mmol/L (3.5-5.0); Total Bilirubin 0.6 mg/dL (0.2-1.0); Total Protein 6.4 g/dL (6.4-8.9)
[2018-07-27] MEDS ORDERED: Lidocaine 2% VISCOUS* 15 ML UDC PO ONE (20:13)
[2018-07-27] MEDS ORDERED: Al Hydrox/Mg Hydrox/Simet LIQ* 30 ML UDC PO ONE (20:13)
--- NOTE | 2018-07-27 20:49 | ED ---
Headache - HPI Summary HPI Summary: Patient complains of migraine headache over the past few days, associated nausea. Migraines described as frontal, intermittent, no relief with ibuprofen or Tylenol. History of occasional migraines, states this is same other than being more persistent. Patient also complains of intermittent chest pain with no active chest pain currently. Patient currently being treated for ulcers with associated intermittent abdominal pain after eating. Patient states he has not been eating food but has been tolerating fluids. Denies neck stiffness , fever, cough, sore throat, vision change, V/D, change in urine, change in BM, penis or testicular symptoms. Medical history is ulcers, arrhythmia with pacemaker. Trauma surgery history is none. - History Of Current Complaint Chief Complaint: EDHeadache Stated Complaint: HEADACHES Time Seen by Provider: 07/27/18 18:46 Hx Obtained From: Patient Onset/Duration: Gradual Onset, Started days ago Initially Headache Was: Moderate Currently Pain Is: Moderate Timing: Intermittent, Lasting: Character: Throbbing, Pressure, Migraine Aggravating Factor: Nothing Allevating Factors: Nothing Associated Signs And Symptoms: Nausea - Allergies/Home Medications Allergies/Adverse Reactions: Allergies Allergy/AdvReac Type Severity Reaction Status Date / Time sertraline [From Zoloft] Allergy GI Upset Verified 03/09/18 15:08 PMH/Surg Hx/FS Hx/Imm Hx Endocrine/Hematology History: Denies: Hx Anticoagulant Therapy Cardiovascular History: Reports: Hx Pacemaker/ICD, Other Cardiovascular Problems /Disorders - long QT Respiratory History: Denies: Hx Asthma, Hx Chronic Obstructive Pulmonary Disease (COPD) GI History: Reports: Other GI Disorders - elevated LFT History: Denies: Hx Dialysis Sensory History: Denies: Hx Legally Blind, Hx Deafness Opthamlomology History: Denies: Hx Legally Blind EENT History: Denies: Hx Deafness Neurological History: Reports: Other Neuro Impairments/Disorders - scoliosis, Psychiatric History: Reports: Hx Anxiety, Hx Depression - Surgical History Surgery Procedure, Year, and Place: TUBES IN EARS - Immunization History Date of Influenza Vaccine: has not received Infectious Disease History: No Infectious Disease History: Denies: Traveled Outside the [place] in Last 30 Days - Family History Known Family History: Positive: Cardiac Disease - Social History Alcohol Use: None Hx Substance Use: No Substance Use Type: Reports: None Hx Tobacco Use: Yes Smoking Status (MU): Former Smoker Type: Cigarettes Review of Systems Constitutional: Negative Eyes: Negative ENT: Negative Cardiovascular: Negative Respiratory: Negative Positive: Nausea Genitourinary: Negative Skin: Negative Positive: Headache Psychological: Normal All Other Systems Reviewed And Are Negative: Yes Physical Exam - Summary Physical Exam Summary: Neuro exam normal. Abdominal exam unremarkable. Patient bradycardic with irregular rhythm. Triage Information Reviewed: Yes Vital Signs On Initial Exam: Initial Vitals Temp Pulse Resp BP Pulse Ox 98.3 F 60 16 118/84 95 07/27/18 16:29 07/27/18 16:29 07/27/18 16:29 07/27/18 16:29 07/27/18 16:29 Vital Signs Reviewed: Yes Appearance: Positive: Well-Appearing Skin: Positive: Warm Head/Face: Positive: Normal Head/Face Inspection Eyes: Positive: Normal Neck: Positive: Supple Respiratory/Lung Sounds: Positive: Clear to Auscultation Cardiovascular: Positive: Bradycardia, IRR Abdomen Description: Positive: Nontender Musculoskeletal: Positive: Normal Neurological: Positive: Normal Psychiatric: Positive: Normal AVPU Assessment: Alert - Dae Coma Scale Best Eye Response: 4 - Spontaneous Best Motor Response: 6 - Obeys Commands Best Verbal Response: 5 - Oriented Coma Scale Total: 15 Diagnostics - Vital Signs Vital Signs Temp Pulse Resp BP Pulse Ox 07/27/18 19:00 51 15 97 07/27/18 18:46 51 21 95 07/27/18 18:42 52 27 99/69 96 07/27/18 16:29 98.3 F 60 16 118/84 95 - Laboratory Lab Results: Lab Results 07/27/18 07/27/18 07/27/18 Range/Units 19:24 19:24 19:24 WBC 5.7 (3.5-10.8) 10^3/ul RBC 5.02 (4.00-5.40) 10^6/ul Hgb 14.0 (14.0-18.0) g/dl Hct 43 (42-52) % MCV 85 (80-94) fL MCH 28 (27-31) pg MCHC 33 (31-36) g/dl RDW 13 (10.5-15) % Plt Count 161 (150-450) 10^3/ul MPV 8.7 (7.4-10.4) fL Neut % (Auto) 52.8 % Lymph % (Auto) 32.9 % Monona % (Auto) 9.5 % Eos % (Auto) 3.8 % Baso % (Auto) 1.0 % Absolute Neuts (auto) 3.0 (1.5-7.7) 10^3/ul Absolute Lymphs (auto) 1.9 (1.0-4.8) 10^3/ul Absolute Monos (auto) 0.5 (0-0.8) 10^3/ul Absolute Eos (auto) 0.2 (0-0.6) 10^3/ul Absolute Basos (auto) 0.1 (0-0.2) 10^3/ul Absolute Nucleated RBC 0 10^3/ul Nucleated RBC % 0 INR (Anticoag Therapy) (0.77-1.02) Sodium 138 (135-145) mmol/L Potassium 3.9 (3.5-5.0) mmol/L Chloride 105 (101-111) mmol/L Carbon Dioxide 26 (22-32) mmol/L Anion Gap 7 (2-11) mmol/L BUN 21 (6-24) mg/dL Creatinine 0.96 (0.67-1.17) mg/dL Est GFR ( Amer) 114.6 (>60) Est GFR (Non-Af Amer) 94.7 (>60) BUN/Creatinine Ratio 21.9 H (8-20) Glucose 82 (70-100) mg/dL Lactic Acid 0.5 (0.5-2.0) mmol/L Calcium 8.6 (8.6-10.3) mg/dL Total Bilirubin 0.60 (0.2-1.0) mg/dL AST 17 (13-39) U/L ALT 14 (7-52) U/L Alkaline Phosphatase 53 (34-104) U/L Troponin I 0.00 (<0.04) ng/mL C-Reactive Protein 2.00 (<8.01) mg/L Total Protein 6.4 (6.4-8.9) g/dL Albumin 4.1 (3.2-5.2) g/dL Globulin 2.3 (2-4) g/dL Albumin/Globulin Ratio 1.8 (1-3) Lipase 12 (11.0-82.0) U/L 07/27/18 Range/Units 19:25 WBC (3.5-10.8) 10^3/ul RBC (4.00-5.40) 10^6/ul Hgb (14.0-18.0) g/dl Hct (42-52) % MCV (80-94) fL MCH (27-31) pg MCHC (31-36) g/dl RDW (10.5-15) % Plt Count (150-450) 10^3/ul MPV (7.4-10.4) fL Neut % (Auto) % Lymph % (Auto) % Monona % (Auto) % Eos % (Auto) % Baso % (Auto) % Absolute Neuts (auto) (1.5-7.7) 10^3/ul Absolute Lymphs (auto) (1.0-4.8) 10^3/ul Absolute Monos (auto) (0-0.8) 10^3/ul Absolute Eos (auto) (0-0.6) 10^3/ul Absolute Basos (auto) (0-0.2) 10^3/ul Absolute Nucleated RBC 10^3/ul Nucleated RBC % INR (Anticoag Therapy) 1.16 H (0.77-1.02) Sodium (135-145) mmol/L Potassium (3.5-5.0) mmol/L Chloride (101-111) mmol/L Carbon Dioxide (22-32) mmol/L Anion Gap (2-11) mmol/L BUN (6-24) mg/dL Creatinine (0.67-1.17) mg/dL Est GFR ( Amer) (>60) Est GFR (Non-Af Amer) (>60) BUN/Creatinine Ratio (8-20) Glucose (70-100) mg/dL Lactic Acid (0.5-2.0) mmol/L Calcium (8.6-10.3) mg/dL Total Bilirubin (0.2-1.0) mg/dL AST (13-39) U/L ALT (7-52) U/L Alkaline Phosphatase (34-104) U/L Troponin I (<0.04) ng/mL C-Reactive Protein (<8.01) mg/L Total Protein (6.4-8.9) g/dL Albumin (3.2-5.2) g/dL Globulin (2-4) g/dL Albumin/Globulin Ratio (1-3) Lipase (11.0-82.0) U/L Result Diagrams: 07/27/18 19:24 07/27/18 19:24 Lab Statement: Any lab studies that have been ordered have been reviewed, and results considered in the medical decision making process. Headache Course/Dx - Course Course Of Treatment: Patient complains of migraine headache over the past few days, associated nausea. Migraines described as frontal, intermittent, no relief with ibuprofen or Tylenol. History of occasional migraines, states this is same other than being more persistent. Patient also complains of intermittent chest pain with no active chest pain currently. Patient currently being treated for ulcers with associated intermittent abdominal pain after eating. Patient states he has not been eating food but has been tolerating fluids. Denies neck stiffness, fever, cough, sore throat, vision change, V/D, change in urine, change in BM, penis or testicular symptoms. Medical history is ulcers, arrhythmia with pacemaker. Trauma surgery history is none. Physical exam:Neuro exam normal. Neck supple. Abdominal exam unremarkable. Patient bradycardic with irregular rhythm. Patient bradycardic, vital signs otherwise unremarkable. Labs unremarkable. EKG sinus bradycardia. Chest x- ray negative for acute process. Troponin negative. Patient migraine improved with migraine cocktail. - Diagnoses Provider Diagnoses: Migraine Discharge - Sign-Out/Discharge Documenting (check all that apply): Patient Departure Patient Received Moderate/Deep Sedation with Procedure: No - Discharge Plan Condition: Stable Disposition: HOME Patient Education Materials: Migraine Headache (ED) Referrals: Madelaine Bell MD [Primary Care Provider] - Additional Instructions: Follow-up with primary care for management of migraines. Return to the ED for any new or worsening symptoms. - Billing Disposition and Condition Condition: STABLE Disposition: Home
[2018-07-27 21:34] VITALS: BP 103/69
== END 2018-07-27 21:34 | disposition home or self-care (01) ==
LOC: ED 16:17
DX: G43.909 Migraine, unspecified, not intractable, without status migrainosus (principal); Z87.891 Personal history of nicotine dependence; Z95.0 Presence of cardiac pacemaker
CPT/HCPCS: 36415; 71046; 80053; 83605; 83690; 84484; 85025; 85610; 86140; 93005; 96361; 96374; 96375; 99283; A9270-GY; J1200; J2765

== ENCOUNTER 2018-08-31 14:20 | Emergency (ER) | payer SELFPAY ==
--- NOTE | 2018-08-31 15:13 | ED ---
Syncope/Near Syncope - HPI Summary HPI Summary: This patient is a 28 year old M brought in by ambulance to ED with a chief complaint of syncope earlier today. The patient reports he was trying to get out of bed during onset when he lost consciousness and hit his head. The patient rates the pain 5/10 in severity. Symptoms aggravated by nothing. Symptoms alleviated by nothing. Patient reports HUGHES head pain, neck pain, and chest heaviness which he states is subsiding now. Patient denies back pain. PMHx of a defibrillator for an arrhythmia. Patient does not take drugs, drink alcohol, or smoke. - History Of Current Complaint Chief Complaint: EDSyncope Time Seen by Provider: 08/31/18 15:01 Hx Obtained From: Patient Onset/Duration: Sudden Onset, Resolved Timing: Intermittent Episode Lasting Context: Loss Of Consciousness Activity At Onset: Exertion - getting out of bed Associated Head Trauma: Yes Aggravating Factor(s): Nothing Alleviating Factor(s): Nothing Associated Signs And Symptoms: Chest Pain - heaviness, Head Trauma (Remote), Headache, Other - head pain, neck pain - Allergies/Home Medications Allergies/Adverse Reactions: Allergies Allergy/AdvReac Type Severity Reaction Status Date / Time sertraline [From Zoloft] Allergy GI Upset Verified 08/14/18 09:26 PMH/Surg Hx/FS Hx/Imm Hx Endocrine/Hematology History: Denies: Hx Anticoagulant Therapy Cardiovascular History: Reports: Hx Pacemaker/ICD, Other Cardiovascular Problems /Disorders - long QT Respiratory History: Denies: Hx Asthma, Hx Chronic Obstructive Pulmonary Disease (COPD) GI History: Reports: Other GI Disorders - elevated LFT History: Denies: Hx Dialysis Sensory History: Denies: Hx Legally Blind, Hx Deafness Opthamlomology History: Denies: Hx Legally Blind Neurological History: Reports: Other Neuro Impairments/Disorders - scoliosis, Psychiatric History: Reports: Hx Anxiety, Hx Depression - Surgical History Surgery Procedure, Year, and Place: TUBES IN EARS - Immunization History Date of Influenza Vaccine: has not received Infectious Disease History: No Infectious Disease History: Denies: Traveled Outside the [place] in Last 30 Days - Family History Known Family History: Positive: Cardiac Disease - Social History Alcohol Use: None Hx Substance Use: No Substance Use Type: Reports: None Hx Tobacco Use: Yes Smoking Status (MU): Heavy Every Day Tobacco Smoker Type: Cigarettes Review of Systems Positive: Chest Pain - heaviness Positive: Other - head trauma and neck pain; denies back pain Neurological: Other - syncopal episode Positive: Headache All Other Systems Reviewed And Are Negative: Yes Physical Exam - Summary Physical Exam Summary: Appearance: Well appearing, no pain distress Skin: warm, dry, reflects adequate perfusion Head/face: normal Eyes: EOMI, PAVITHRA ENT: normal Neck: supple, non-tender Respiratory: CTA, breath sounds present Cardiovascular: RRR, pulses symmetrical, Pacemaker in the L chest Abdomen: non-tender, soft Musculoskeletal: normal, strength/ROM intact Neuro: normal, sensory motor intact, A&Ox3 GCS: 15 Triage Information Reviewed: Yes Vital Signs On Initial Exam: Initial Vitals Temp Pulse Resp BP Pulse Ox 97.4 F 64 22 110/72 99 08/31/18 14:37 08/31/18 14:37 08/31/18 14:37 08/31/18 14:37 08/31/18 14:37 Vital Signs Reviewed: Yes Diagnostics - Vital Signs Vital Signs Temp Pulse Resp BP Pulse Ox 08/31/18 15:00 61 21 99 08/31/18 14:40 60 18 98 08/31/18 14:37 97.4 F 64 22 110/72 99 - Laboratory Result Diagrams: 08/31/18 16:08 08/31/18 16:08 Lab Statement: Any lab studies that have been ordered have been reviewed, and results considered in the medical decision making process. - Radiology CXR Radiology Interpretation Completed By: Radiologist Summary of Radiographic Findings: Elevated lung volumes may reflect obstructive lung disease or simply exuberant inspiratory effort for examination. No acute cardiopulmonary process evident. Dr. Peter has reviewed this radiology report. - CT Brain CT CT Interpretation Completed By: Radiologist Summary of CT Findings: Negative unenhanced CT of the brain. Sphenoid sinus disease possibly reflecting acute sinusitis. Dr. Peter has reviewed this radiology report. CT C-spine CT Interpretation Completed By: Radiologist Summary of CT Findings: Negative CT of the cervical spine. Dr. Peter has reviewed this radiology report. - EKG 1529 Cardiac Rate: Bradycardia - 50 BPM EKG Rhythm: Sinus Bradycardia Summary of EKG Findings: ST changes in the lateral leads, unchanged from 2018 Re-Evaluation - Re-Evaluation First Eval Re-Evaluation Time: 16:52 Comment: Discussed results and plan for discharge. Patient understands and agrees with this plan. Course/Dx Assessment/Plan: This patient is a 28 year old M brought in by ambulance to ED with a chief complaint of syncope earlier today. Blood work obtained. EKG reveals sinus bradycardia at [address] changes in the lateral leads, unchanged from 07/27/2018. Brain CT reveals negative unenhanced CT of the brain. Sphenoid sinus disease possibly reflecting acute sinusitis. C-spine CT reveals negative CT of the cervical spine. CXR reveals elevated lung volumes may reflect obstructive lung disease or simply exuberant inspiratory effort for examination. No acute cardiopulmonary process evident. The patient will be discharged with dx of head injury, syncopal episode, and sinusitis. Patient understands and agrees with this plan. - Diagnoses Differential Diagnosis/HQI/PQRI: Positive: Vasovagal Episode, Other - head injury, syncopal episode, sinusitis Provider Diagnoses: Head injury, Episode of syncope, Sinusitis Discharge - Sign-Out/Discharge Documenting (check all that apply): Patient Departure - discharge Patient Received Moderate/Deep Sedation with Procedure: No - Discharge Plan Condition: Stable Disposition: HOME Prescriptions: Amoxicillin/Clavulanate TAB* [Augmentin TAB 500 mg*] 875 mg PO BID #20 tab Patient Education Materials: Sinusitis (ED), Syncope (ED), Head Injury (ED) Referrals: Madelaine Bell MD [Primary Care Provider] - 3 Days Additional Instructions: RETURN TO THE EMERGENCY DEPARTMENT FOR CHANGING OR WORSENING SYMPTOMS. - Billing Disposition and Condition Condition: STABLE Disposition: Home - Attestation Statements Document Initiated by Nikoibe: Yes Documenting Scribe: Boris Price Provider For Whom Minor is Documenting (Include Credential): Chris Peter MD Scribe Attestation: Boris Pace, scribed for Chris Peter MD on 08/31/18 at 1700. Scribe Documentation Reviewed: Yes Provider Attestation: The documentation as recorded by the Boris sam accurately reflects the service I personally performed and the decisions made by me, Chris Peter MD Status of Scribe Document: Viewed
[2018-08-31 16:19] LABS: ABS Basophils 0 10^3/ul (0-0.2); ABS Eosinophils 0.2 10^3/ul (0-0.6); ABS Lymphocytes 1.4 10^3/ul (1.0-4.8); ABS Monocytes 0.4 10^3/ul (0-0.8); ABS Neutrophils 4.2 10^3/ul (1.5-7.7); ABS Nucleated RBC 0 10^3/ul; Eosinophil % 3.6 %; Hematocrit 42 % (36-46); Hemoglobin 13.6 g/dL (14.0-18.0); Lymphocyte % 22.2 %; Mean Corpuscular HGB Conc 33 g/dL (31-36); Mean Corpuscular Hemoglobin 29 pg (27-31); Mean Corpuscular Volume 87 fL (80-94); Nucleated Red Blood Cells % 0; Platelet Count 151 10^3/uL (150-450); Red Blood Count 4.77 10^6 /uL (4.18-5.48); Red Cell Distribution Width 14 % (10.5-15); White Blood Count 6.3 10^3/uL (3.5-10.8)
[2018-08-31 16:28] LABS: Activated Partial Thrombo Time 36.2 seconds (26.0-36.3); INR 1.01 (0.77-1.02)
[2018-08-31 16:35] LABS: Albumin 4.3 g/dL (3.2-5.2); Albumin/Globulin Ratio 1.9 (1-3); BUN/Creatinine Ratio 16.9 (8-20); Calcium 8.9 mg/dL (8.6-10.3); EGFR African American 124.1 (>60); EGFR Non-African American 102.5 (>60); Globulin 2.3 g/dL (2-4); Potassium 4.1 mmol/L (3.5-5.0); Total Bilirubin 0.8 mg/dL (0.2-1.0); Total Protein 6.6 g/dL (6.4-8.9)
[2018-08-31 17:15] VITALS: BP 110/72
== END 2018-08-31 17:15 | disposition home or self-care (01) ==
LOC: ED 14:20
DX: S09.90XA Unspecified injury of head, initial encounter (principal); W06.XXXA Fall from bed, initial encounter; Y92.003 Bedroom of unspecified non-institutional (private) residence as the place of occurrence of the external cause; R91.8 Other nonspecific abnormal finding of lung field; R00.1 Bradycardia, unspecified; R94.31 Abnormal electrocardiogram [ECG] [EKG]; R55 Syncope and collapse; J01.90 Acute sinusitis, unspecified; I45.81 Long QT syndrome; F41.9 Anxiety disorder, unspecified; F32.9 Major depressive disorder, single episode, unspecified; M41.9 Scoliosis, unspecified; F17.210 Nicotine dependence, cigarettes, uncomplicated; Z88.8 Allergy status to other drugs, medicaments and biological substances; Z95.810 Presence of automatic (implantable) cardiac defibrillator
CPT/HCPCS: 36415; 70450; 71045; 72125; 80053; 83605; 84484; 85025; 85610; 85730; 93005; 99283

== ENCOUNTER 2018-09-09 08:09 | Emergency (ER) | payer SELFPAY ==
[2018-09-09 08:18] VITALS: BP 110/64
[2018-09-09] MEDS ORDERED: Ondansetron ODT TAB* 4 MG PO ONE (08:42)
[2018-09-09] MEDS ORDERED: Ketorolac INJ* 60 MG/2 ML VIAL IM ONE (08:43)
--- NOTE | 2018-09-09 08:44 | ED ---
Complex/Multi-Sys Presentation - HPI Summary HPI Summary: A 28 y/o male presents to [facility] with a chief complaint of headache. He also reports abdominal pain, stuffy nose, and dry-heaving this morning. He denies vomiting, diarrhea, fevers or chills. At triage he rated his pain as a 4/10 in severity. He reports that he has not been around anyone who has been sick. His last BM was this morning. The patient has had a defibrillator since 2016 and says that he will see his architectural inspector, Dr. Madera, on 09/29/18. He reports that he still has his gallbladder. He is allergic to Zoloft. - History Of Current Complaint Chief Complaint: EDHeadache Time Seen by Provider: 09/09/18 08:29 Hx Obtained From: Patient Onset/Duration: Sudden Onset, Lasting Hours, Still Present Timing: Constant Severity Currently: Moderate Severity Initially: Moderate Location: Pain At: - headache, abdominal pain, stuffy nose Aggravating Factor(s): none Alleviating Factor(s): none Associated Signs And Symptoms: Positive: Abdominal Pain, Other - dry heaving, stuffy nose. Negative: Vomiting, Fever - Allergies/Home Medications Allergies/Adverse Reactions: Allergies Allergy/AdvReac Type Severity Reaction Status Date / Time sertraline [From Zoloft] Allergy GI Upset Verified 09/09/18 08:18 PMH/Surg Hx/FS Hx/Imm Hx Endocrine/Hematology History: Denies: Hx Anticoagulant Therapy Cardiovascular History: Reports: Hx Pacemaker/ICD, Other Cardiovascular Problems /Disorders - long QT Respiratory History: Denies: Hx Asthma, Hx Chronic Obstructive Pulmonary Disease (COPD) GI History: Reports: Other GI Disorders - elevated LFT History: Denies: Hx Dialysis Sensory History: Denies: Hx Legally Blind, Hx Deafness Opthamlomology History: Denies: Hx Legally Blind Neurological History: Reports: Other Neuro Impairments/Disorders - scoliosis, Psychiatric History: Reports: Hx Anxiety, Hx Depression - Surgical History Surgery Procedure, Year, and Place: TUBES IN EARS - Immunization History Date of Influenza Vaccine: has not received Infectious Disease History: No Infectious Disease History: Denies: Traveled Outside the [place] in Last 30 Days - Family History Known Family History: Positive: Cardiac Disease - Social History Alcohol Use: None Hx Substance Use: No Substance Use Type: Reports: None Hx Tobacco Use: Yes Smoking Status (MU): Heavy Every Day Tobacco Smoker Type: Cigarettes Review of Systems Negative: Fever, Chills Positive: Other - positive: stuffy nose Positive: Abdominal Pain, Other - positive: dry heaving. Negative: Vomiting, Diarrhea Positive: Headache All Other Systems Reviewed And Are Negative: Yes Physical Exam - Summary Physical Exam Summary: GENERAL: Patient is a well-developed and nourished M who is lying comfortable in the stretcher. Patient is not in any acute respiratory distress. HEAD AND FACE: Normocephalic EYES: PERRLA, EOMI x 2. EARS: Hearing grossly intact. MOUTH: Oropharynx within normal limits. NECK: Supple, trachea is midline, no adenopathy, no JVD, no carotid bruit. CHEST: Symmetric, no tenderness at palpation LUNGS: Clear to auscultation bilaterally. No wheezing or crackles. CVS: Regular rate and rhythm, S1 and S2 present, no murmurs or gallops appreciated. ABDOMEN: Soft, non-tender. Bowel sounds are normal. No abdominal abnormal pulsations. EXTREMITIES: Full ROM in all major joints, no edema, no cyanosis or clubbing. NEURO: Alert and oriented x 3. No acute neurological deficits. Speech is normal and follows commands. No meningeal signs. SKIN: Dry and warm Triage Information Reviewed: Yes Vital Signs On Initial Exam: Initial Vitals Temp Pulse Resp BP Pulse Ox 98.0 F 56 18 110/64 98 09/09/18 08:15 09/09/18 08:15 09/09/18 08:15 09/09/18 08:15 09/09/18 08:15 Vital Signs Reviewed: Yes Diagnostics - Vital Signs Vital Signs Temp Pulse Resp BP Pulse Ox 09/09/18 08:15 98.0 F 56 18 110/64 98 - Laboratory Result Diagrams: 09/09/18 08:47 09/09/18 08:47 Lab Statement: Any lab studies that have been ordered have been reviewed, and results considered in the medical decision making process. Re-Evaluation - Re-Evaluation First Eval Re-Evaluation Time: 10:18 Change: Unchanged Comment: Reviewed results, patient is feeling better, ready for DC. Complex Multi-Symp Course/Dx Course Of Treatment: A 28 y/o male presents to [facility] with a chief complaint of headache. He also reports abdominal pain, stuffy nose, and dry-heaving this morning. Workup is unremarkable. The physical exam revealed no meningeal signs. In the ED course the patient was given Toradol IM and Zofran PO. Bloodwork, chemistry and urines obtained and are WNL. The patient was negative for Influenza A and Influenza B. Presumptive positive for Ur Cannabinoids. The patient will be discharged. I discussed results with patient and he reports feeling better. He is hemodynamically stable and safe for discharge. Strict return precautions given and he will otherwise follow up with his PCP - Diagnoses Provider Diagnoses: Headache Discharge - Sign-Out/Discharge Documenting (check all that apply): Patient Departure - DC Patient Received Moderate/Deep Sedation with Procedure: No - Discharge Plan Condition: Stable Disposition: HOME Patient Education Materials: Acute Headache (DC) Referrals: Madelaine Bell MD [Primary Care Provider] - (1-3 days) Additional Instructions: Follow up with your primary care physician in 1-3 days. RETURN TO THE EMERGENCY DEPARTMENT FOR CHANGING OR WORSENING SYMPTOMS. - Billing Disposition and Condition Condition: STABLE Disposition: Home - Attestation Statements Document Initiated by Nikoibdb: Yes Documenting Scribe: Richard Castillo Provider For Whom Minor is Documenting (Include Credential): Dany Pizarro MD Scribe Attestation: I, Richard Castillo, scribed for Dany Pizarro MD on 09/10/18 at 1235. Scribe Documentation Reviewed: Yes Provider Attestation: The documentation as recorded by the Richard sam accurately reflects the service I personally performed and the decisions made by me, Milo Pizarro MD Status of Scribe Document: Viewed
[2018-09-09 09:05] LABS: Urine Appearance Clear; Urine Bilirubin Negative (Negative); Urine Blood Negative (Negative); Urine Color Yellow; Urine Glucose Negative (Negative); Urine Ketones Negative (Negative); Urine Nitrite Negative (Negative); Urine Protein Negative (Negative); Urine Specific Gravity 1.015 (1.010-1.030); Urine Urobilinogen Negative (Negative)
[2018-09-09 09:16] LABS: ABS Basophils 0 10^3/ul (0-0.2); ABS Eosinophils 0.2 10^3/ul (0-0.6); ABS Lymphocytes 1.5 10^3/ul (1.0-4.8); ABS Monocytes 0.4 10^3/ul (0-0.8); ABS Neutrophils 2.6 10^3/ul (1.5-7.7); ABS Nucleated RBC 0.01 10^3/ul; Hematocrit 42 % (36-46); Hemoglobin 13.5 g/dL (14.0-18.0); Mean Corpuscular HGB Conc 32 g/dL (31-36); Mean Corpuscular Hemoglobin 28 pg (27-31); Mean Corpuscular Volume 87 fL (80-94); Mean Platelet Volume 8.2 fL (7.4-10.4); Platelet Count 126 10^3/uL (150-450); Red Blood Count 4.78 10^6 /uL (4.18-5.48); Red Cell Distribution Width 14 % (10.5-15); White Blood Count 4.7 10^3/uL (3.5-10.8)
[2018-09-09 09:17] LABS: Influenza A Molecular NEGATIVE (Negative); Influenza B Molecular NEGATIVE (Negative)
[2018-09-09 09:17] LABS: Eosinophil % 4.2 %; Lymphocyte % 32.2 %; Nucleated Red Blood Cells % 0.1
[2018-09-09 09:45] LABS: Albumin 4.2 g/dL (3.2-5.2); BUN/Creatinine Ratio 18.2 (8-20); EGFR African American 125.7 (>60); EGFR Non-African American 103.9 (>60); Globulin 2.1 g/dL (2-4); Magnesium 1.9 mg/dL (1.9-2.7); Potassium 4.6 mmol/L (3.5-5.0); Total Bilirubin 0.4 mg/dL (0.2-1.0); Total Protein 6.3 g/dL (6.4-8.9)
[2018-09-09 09:46] LABS: C Reactive Protein 0.32 mg/L (<8.01)
[2018-09-09 10:37] LABS: Barbiturates Urine Screen None Detected (None Detect); Benzodiazepine Urine Screen None Detected (None Detect); Urine Cannabinoids Screen Presumptive Positive (None Detect)
== END 2018-09-09 10:26 | disposition home or self-care (01) ==
LOC: ED 08:09
DX: R51 Headache (principal); R10.9 Unspecified abdominal pain; F17.210 Nicotine dependence, cigarettes, uncomplicated; R11.2 Nausea with vomiting, unspecified; Z95.0 Presence of cardiac pacemaker; Z88.2 Allergy status to sulfonamides; Z86.79 Personal history of other diseases of the circulatory system
CPT/HCPCS: 36415; 80053; 80307; 81003; 83605; 83690; 83735; 83880; 84484; 85025; 86140; 96372; 99282; A9270-GY; J1885

== ENCOUNTER 2018-09-23 09:37 | Emergency (ER) | payer SELFPAY ==
[2018-09-23] MEDS ORDERED: NS 0.9% 1000 ML** 1,000 ML IV ONE ×2 (10:17→11:37)
[2018-09-23] MEDS ORDERED: Ondansetron INJ* 2 MG/ML VIAL IV ONE (10:18)
[2018-09-23] MEDS ORDERED: Acetaminophen TAB* 325 MG PO ONE (10:18)
--- NOTE | 2018-09-23 10:29 | ED ---
HPI Chest Pain - HPI Summary HPI Summary: Patient is a 28-year-old male with a history of irregular heart rate and defibrillator placed 3 years ago presenting to the ED with nausea and vomiting since this morning. He states he was at work when he had the acute onset of nausea and vomiting. He denies any fevers, sweats, chills. He denies any abdominal pain or weakness. He denies any SOB. He endorses some left-sided chest pain, but feels this may have only been for 10 seconds and is now resolved. Patient is a heavy smoker, intermittent drug and alcohol use. Denies any back pain or UA symptoms. Denies any headaches, confusion, memory loss. He has never had an issue with his defibrillator. He was told he had a heart murmur as a child and later needed the defibrillator, but was unsure why. - History of Current Complaint Chief Complaint: EDChestPainROMI Time Seen by Provider: 09/23/18 10:05 Hx Obtained From: Patient Onset/Duration: Started Hours Ago Timing: Constant Initial Severity: Mild Current Severity: Mild Pain Intensity: 5 Pain Scale Used: 0-10 Numeric Chest Pain Radiates: Yes Chest Pain Radiates To:: Other - left sided Aggravating Factor(s): Nothing Alleviating Factor(s): Nothing Associated Signs and Symptoms: Positive: Negative - Risk Factors Pulmonary Embolism Risk Factors: Negative TAD Risk Factors: Negative - Allergy/Home Medications Allergies/Adverse Reactions: Allergies Allergy/AdvReac Type Severity Reaction Status Date / Time sertraline [From Zoloft] Allergy GI Upset Verified 09/23/18 10:06 Home Medications: Home Medications Sertraline* [Zoloft*] 100 mg PO DAILY 09/23/18 [History Confirmed 09/23/18] PMH/Surg Hx/FS Hx/Imm Hx Previously Healthy: Yes Endocrine/Hematology History: Denies: Hx Anticoagulant Therapy Cardiovascular History: Reports: Hx Pacemaker/ICD, Other Cardiovascular Problems /Disorders - long QT Respiratory History: Denies: Hx Asthma, Hx Chronic Obstructive Pulmonary Disease (COPD) GI History: Reports: Other GI Disorders - elevated LFT History: Denies: Hx Dialysis Sensory History: Denies: Hx Legally Blind, Hx Deafness Opthamlomology History: Denies: Hx Legally Blind Neurological History: Reports: Other Neuro Impairments/Disorders - scoliosis, Psychiatric History: Reports: Hx Anxiety, Hx Depression - Surgical History Surgery Procedure, Year, and Place: TUBES IN EARS - Immunization History Date of Influenza Vaccine: has not received Hx Pertussis Vaccination: No Immunizations Up to Date: Yes Infectious Disease History: No Infectious Disease History: Denies: Traveled Outside the [place] in Last 30 Days - Family History Known Family History: Positive: Cardiac Disease - Social History Occupation: Employed Full-time Lives: With Family Alcohol Use: None Hx Substance Use: No Substance Use Type: Reports: None Hx Tobacco Use: Yes Smoking Status (MU): Former Smoker Type: Cigarettes Review of Systems Constitutional: Negative Negative: Fever, Chills, Fatigue, Skin Diaphoresis Positive: Chest Pain - left sided. Negative: Palpitations Negative: Shortness Of Breath, Cough Positive: Vomiting, Nausea. Negative: Abdominal Pain, Diarrhea Genitourinary: Negative Positive: no symptoms reported, see HPI Musculoskeletal: Negative Skin: Negative All Other Systems Reviewed And Are Negative: Yes Physical Exam Triage Information Reviewed: Yes Vital Signs On Initial Exam: Initial Vitals Temp Pulse Resp BP Pulse Ox 96.9 F 67 20 121/75 94 09/23/18 09:38 09/23/18 09:38 09/23/18 09:38 09/23/18 09:38 09/23/18 09:38 Vital Signs Reviewed: Yes Appearance: Positive: Well-Appearing, Well-Nourished Skin: Positive: Warm, Skin Color Reflects Adequate Perfusion Head/Face: Positive: Normal Head/Face Inspection Eyes: Positive: EOMI, Conjunctiva Clear Neck: Positive: Supple, No Lymphadenopathy Respiratory/Lung Sounds: Positive: Clear to Auscultation, Breath Sounds Present Cardiovascular: Positive: RRR, Pulses are Symmetrical in both Upper and Lower Extremities Musculoskeletal: Positive: Normal, Strength/ROM Intact Neurological: Positive: Sensory/Motor Intact, Alert, Oriented to Person Place, Time, Speech Normal Psychiatric: Positive: Normal, Affect/Mood Appropriate AVPU Assessment: Alert Diagnostics - Vital Signs Vital Signs Temp Pulse Resp BP Pulse Ox 09/23/18 10:00 56 14 96 09/23/18 09:54 21 09/23/18 09:53 57 19 105/71 96 09/23/18 09:38 96.9 F 67 20 121/75 94 - Laboratory Result Diagrams: 09/23/18 10:39 09/23/18 10:39 Lab Statement: Any lab studies that have been ordered have been reviewed, and results considered in the medical decision making process. Chest Pain Course/Dx - Course Course Of Treatment: During the course of treatment, the patient is evaluated for acute onset 1 times emesis, nausea and left-sided chest pain which is all dissipated prior to arrival. He states he was working and felt the nausea and subsequently had one episode of vomiting. He endorses a 10 second episode of chest pain. This is all resolved. He denies any symptoms at this time. Labs obtained are WNL. Chest x-ray obtained which shows no acute findings. EKG shows normal sinus rhythm. On reexamination, patient continues to feel well and is ready for discharge at this time. He states will follow back up with his PCP for any worsening or changing symptoms. He declines any medications at this time. He is requesting a note for work. - Chest Pain Differential Diagnosis/HQI/PQRI: ACS, Chest Wall - Diagnoses Provider Diagnoses: Chest pain Discharge - Sign-Out/Discharge Documenting (check all that apply): Patient Departure Patient Received Moderate/Deep Sedation with Procedure: No - Discharge Plan Condition: Stable Disposition: HOME Patient Education Materials: Acute Nausea and Vomiting (ED) Forms: *Work Release Referrals: Madelaine Bell MD [Primary Care Provider] - Additional Instructions: Please follow up with PCP as scheduled If he develop any worsening or changing symptoms, return to the ED immediately - Billing Disposition and Condition Condition: STABLE Disposition: Home
[2018-09-23 10:59] LABS: ABS Basophils 0 10^3/ul (0-0.2); ABS Eosinophils 0.1 10^3/ul (0-0.6); ABS Lymphocytes 1.7 10^3/ul (1.0-4.8); ABS Monocytes 0.4 10^3/ul (0-0.8); ABS Nucleated RBC 0 10^3/ul; Eosinophil % 0.9 %; Hematocrit 40 % (36-46); Hemoglobin 13.1 g/dL (14.0-18.0); Lymphocyte % 27.3 %; Mean Corpuscular HGB Conc 33 g/dL (31-36); Mean Corpuscular Hemoglobin 28 pg (27-31); Mean Corpuscular Volume 85 fL (80-94); Mean Platelet Volume 7.6 fL (7.4-10.4); Nucleated Red Blood Cells % 0; Platelet Count 242 10^3/uL (150-450); Red Blood Count 4.65 10^6 /uL (4.18-5.48); Red Cell Distribution Width 14 % (10.5-15); White Blood Count 6.2 10^3/uL (3.5-10.8)
[2018-09-23 11:03] LABS: INR 1.24 (0.82-1.09)
[2018-09-23 11:10] LABS: Albumin 4.1 g/dL (3.2-5.2); Albumin/Globulin Ratio 1.6 (1-3); BUN/Creatinine Ratio 17.8 (8-20); Calcium 9.1 mg/dL (8.6-10.3); EGFR African American 100.3 (>60); EGFR Non-African American 82.9 (>60); Globulin 2.5 g/dL (2-4); Magnesium 2.1 mg/dL (1.9-2.7); Potassium 4.2 mmol/L (3.5-5.0); Total Bilirubin 0.5 mg/dL (0.2-1.0); Total Protein 6.6 g/dL (6.4-8.9)
[2018-09-23 11:36] LABS: Influenza A Molecular NEGATIVE (Negative); Influenza B Molecular NEGATIVE (Negative)
[2018-09-23 13:30] VITALS: BP 118/76
== END 2018-09-23 13:38 | disposition home or self-care (01) ==
LOC: ED 09:37
DX: R07.9 Chest pain, unspecified (principal); Z87.891 Personal history of nicotine dependence; F32.9 Major depressive disorder, single episode, unspecified; F41.9 Anxiety disorder, unspecified
CPT/HCPCS: 36415; 71046; 80053; 83605; 83735; 84484; 85025; 85610; 93005; 96361; 96374; 99283; A9270-GY; J2405

== ENCOUNTER 2018-10-05 12:43 | Emergency (ER) | payer SELFPAY ==
--- NOTE | 2018-10-05 12:56 | ED ---
HPI Chest Pain - HPI Summary HPI Summary: This patient is a 28 year old male brought in by EMS presenting to [facility] with a chief complaint of left-sided chest pain radiating down his left arm minutes [employer]. He reports numbness and tingling in his left arm and a headache. The patient reports he has an internal defibrillator due to a Hx of ventricular tachycardia. The patient rates his pain 8/10 in severity. - History of Current Complaint Chief Complaint: EDChestPainROMI Time Seen by Provider: 10/05/18 12:49 Hx Obtained From: Patient Onset/Duration: Started Minutes Ago Timing: Constant Current Severity: Severe Pain Intensity: 8 Pain Scale Used: 0-10 Numeric Chest Pain Location: Left Anterior Chest Pain Radiates: Yes Chest Pain Radiates To:: Arm - Allergy/Home Medications Allergies/Adverse Reactions: Allergies Allergy/AdvReac Type Severity Reaction Status Date / Time sertraline [From Zoloft] Allergy GI Upset Verified 09/23/18 10:06 PMH/Surg Hx/FS Hx/Imm Hx Endocrine/Hematology History: Denies: Hx Anticoagulant Therapy Cardiovascular History: Reports: Hx Pacemaker/ICD, Other Cardiovascular Problems /Disorders - long QT Respiratory History: Denies: Hx Asthma, Hx Chronic Obstructive Pulmonary Disease (COPD) GI History: Reports: Other GI Disorders - elevated LFT History: Denies: Hx Dialysis Sensory History: Denies: Hx Legally Blind, Hx Deafness Opthamlomology History: Denies: Hx Legally Blind Neurological History: Reports: Other Neuro Impairments/Disorders - scoliosis, Psychiatric History: Reports: Hx Anxiety, Hx Depression - Surgical History Surgery Procedure, Year, and Place: TUBES IN EARS - Immunization History Date of Influenza Vaccine: has not received Infectious Disease History: No Infectious Disease History: Denies: Traveled Outside the [place] in Last 30 Days - Family History Known Family History: Positive: Cardiac Disease - Social History Alcohol Use: None Hx Substance Use: No Substance Use Type: Reports: None Hx Tobacco Use: Yes Smoking Status (MU): Former Smoker Type: Cigarettes Review of Systems Positive: Chest Pain - Radiates to arm Positive: Numbness All Other Systems Reviewed And Are Negative: Yes Physical Exam - Summary Physical Exam Summary: VITAL SIGNS: Reviewed. GENERAL: Patient is a thin MALE who is lying comfortable in the stretcher. Patient is not in any acute respiratory distress. HEAD AND FACE: No signs of trauma. No ecchymosis, hematomas or skull depressions. No sinus tenderness. EYES: PERRLA, EOMI x 2, No injected conjunctiva, no nystagmus. EARS: Hearing grossly intact. Ear canals and tympanic membranes are within normal limits. MOUTH: Oropharynx within normal limits. NECK: Supple, trachea is midline, no adenopathy, no JVD, no carotid bruit, no c- spine tenderness, neck with full ROM. CHEST: Symmetric, reproducible chest pain. Internal defribrillator on the left side of the chest. LUNGS: Clear to auscultation bilaterally. No wheezing or crackles. CVS: Regular rate and rhythm, S1 and S2 present, no murmurs or gallops appreciated. ABDOMEN: Soft, non-tender. No signs of distention. No rebound no guarding, and no masses palpated. Bowel sounds are normal. EXTREMITIES: FROM in all major joints, no edema, no cyanosis or clubbing. NEURO: Alert and oriented x 3. No acute neurological deficits. Speech is normal and follows commands. SKIN: Dry and warm Triage Information Reviewed: Yes Vital Signs On Initial Exam: Initial Vitals Temp Pulse Resp BP Pulse Ox 98.3 F 56 17 107/69 100 10/05/18 12:46 10/05/18 12:46 10/05/18 12:46 10/05/18 12:46 10/05/18 12:46 Vital Signs Reviewed: Yes Diagnostics - Vital Signs Vital Signs Temp Pulse Resp BP Pulse Ox 10/05/18 12:46 98.3 F 56 17 107/69 100 - Laboratory Result Diagrams: 10/05/18 13:00 10/05/18 13:00 Lab Statement: Any lab studies that have been ordered have been reviewed, and results considered in the medical decision making process. - Radiology CXR Radiology Interpretation Completed By: Radiologist Summary of Radiographic Findings: No radiographic evidence for acute cardiopulmonary abnormality on this portable chest x-ray. ED Provider has reviewed this report. - EKG 1249 Cardiac Rate: Bradycardia - 55 BPM EKG Rhythm: Sinus Bradycardia ST Segment: Non-Specific Ectopy: None EKG Comparison: No Significant Change - 09/23/18 Chest Pain Course/Dx - Course Assessment/Plan: This patient is a 28-year-old male who presents to the emergency department via ambulance with a chief complaint of having chest pain. The patient reports that this morning when he was sitting he developed this sharp chest pain and left-sided chest therefore he decided to come to the emergency department. The patient has past medical history significant for pacemaker/ICD secondary to QT prolongations and arrhythmias. In the ED course the patient was placed in a gambling monitor, IV access was obtained and blood work was sent to the lab. EKG shows a sinus rhythm without any ST elevations. The EKG is identical to a previous EKG done on 09/23/18. Chest x-ray impression : No radiographic evidence of acute cardiopulmonary abnormality. In the ED course the patient was given Toradol for the pain. I do not believe that the patient has an acute coronary syndrome. The patient is not tachycardic or hypoxic therefore have no suspicion for pulmonary emboli. The pain improved with Toradol and the pain is not radiating to the back therefore have no suspicion for dissection. The EKG is similar to. His EKG in the past therefore I have no suspicion for pericarditis. Heart score is equal to 3 therefore no suspicion for acute, my syndrome. I discussed all the findings and test results with the patient. Patient was instructed to return to the emergency room immediately if any of the symptoms return worsens. Plan of care was discussed with the patient and understands and agrees. All questions were answered at patient satisfaction. There were no further complaints or concerns. Lung exam before discharge: CTA B/L. Good air exchange. No wheezing or crackles heard. CVS: S1 and S2 present. No murmurs appreciated. Patient is alert and oriented x 3. Patient is hemodynamically stable. Patient will be discharged home with follow up PCP in the next 2-3 days - Chest Pain Differential Diagnosis/HQI/PQRI: Acute FL, ACS, Angina, Aortic Aneurysm, CHF, Chest Wall, GI Disease, Lower Respiratory Infection - Diagnoses Provider Diagnoses: Atypical chest pain Discharge - Sign-Out/Discharge Documenting (check all that apply): Patient Departure - Discharge Patient Received Moderate/Deep Sedation with Procedure: No - Discharge Plan Condition: Stable Disposition: HOME Patient Education Materials: Chest Pain (ED) Referrals: Madelaine Bell MD [Primary Care Provider] - 3 Days Additional Instructions: Return to ED with any new or worsening symptoms. - Billing Disposition and Condition Condition: STABLE Disposition: Home - Attestation Statements Document Initiated by Scribe: Yes Documenting Scribe: Rey Reyes Provider For Whom Nikoibdb is Documenting (Include Credential): Artie Elizalde MD Scribe Attestation: I, Rey Reyes, scribed for Artie Elizalde MD on 10/05/18 at 2102. Scribe Documentation Reviewed: Yes Provider Attestation: The documentation as recorded by the scribeRey accurately reflects the service I personally performed and the decisions made by me, Artie Elizalde MD Status of Scribe Document: Viewed
[2018-10-05 13:35] LABS: ABS Basophils 0.1 10^3/ul (0-0.2); ABS Eosinophils 0.1 10^3/ul (0-0.6); ABS Lymphocytes 1.1 10^3/ul (1.0-4.8); ABS Monocytes 0.5 10^3/ul (0-0.8); ABS Neutrophils 6.3 10^3/ul (1.5-7.7); Hematocrit 41 % (42-52); Hemoglobin 13.3 g/dL (14.0-18.0); Lymphocyte % 13.3 %; Mean Corpuscular HGB Conc 33 g/dL (31-36); Mean Corpuscular Hemoglobin 28 pg (27-31); Mean Corpuscular Volume 86 fL (80-94); Mean Platelet Volume 8.2 fL (7.4-10.4); Platelet Count 147 10^3/uL (150-450); Red Cell Distribution Width 15 % (10.5-15); White Blood Count 7.9 10^3/uL (3.5-10.8)
[2018-10-05 13:52] LABS: Albumin 4.4 g/dL (3.2-5.2); Albumin/Globulin Ratio 1.8 (1-3); BUN/Creatinine Ratio 23.5 (8-20); Calcium 9.1 mg/dL (8.6-10.3); EGFR African American 138.3 (>60); EGFR Non-African American 114.3 (>60); Globulin 2.4 g/dL (2-4); Potassium 4.1 mmol/L (3.5-5.0); Total Bilirubin 0.5 mg/dL (0.2-1.0); Total Protein 6.8 g/dL (6.4-8.9)
[2018-10-05 13:56] LABS: CKMB ng/mL 1.3 ng/mL (0.6-6.3)
[2018-10-05] MEDS ORDERED: Ketorolac INJ* 30 MG/ML 1 ML VIAL IV PUSH ONE (14:07)
[2018-10-05 14:26] LABS: TSH (Thyroid Stimulating Horm) 0.87 mcIU/mL (0.34-5.60)
[2018-10-05 14:35] VITALS: BP 117/68
== END 2018-10-05 14:46 | disposition home or self-care (01) ==
LOC: ED 12:43
DX: R07.89 Other chest pain (principal); Z95.0 Presence of cardiac pacemaker; Z87.891 Personal history of nicotine dependence; R20.0 Anesthesia of skin
CPT/HCPCS: 36415; 71045; 80053; 82550; 82553; 83605; 83735; 83880; 84443; 84484; 85025; 93005; 99283; J1885

== ENCOUNTER 2018-10-14 07:11 | Emergency (ER) | payer SELFPAY ==
[2018-10-14] MEDS ORDERED: NS 0.9% 1000 ML** 1,000 ML IV ONE (07:30)
[2018-10-14] MEDS ORDERED: Pantoprazole IV* 40 MG IV ONE (07:30)
--- NOTE | 2018-10-14 07:31 | ED ---
HPI Chest Pain - HPI Summary HPI Summary: Pt is a 28 y/o M presenting to the ED brought in by EMS for chest pain. He states he woke up to get ready for work and experienced some dizziness when he walked by his couch. His mother notes that he saw him have a syncopal episode, in which he was unconscious for a few minutes. He woke up with nausea so he went to the bathroom and vomited bloody phlegm, which he attributes to his gastric ulcers dxed in May. He states he has chest pain in the mid- sternal area that came on after he vomited. - History of Current Complaint Chief Complaint: EDChestPainROMI Hx Obtained From: Patient Onset/Duration: Started Hours Ago, Still Present Timing: Constant, Lasting Hours Initial Severity: Moderate Current Severity: Moderate Pain Intensity: 6 Pain Scale Used: 0-10 Numeric Chest Pain Location: Mid Sternal Chest Pain Radiates: No Aggravating Factor(s): Nothing Alleviating Factor(s): Nothing Associated Signs and Symptoms: Positive: Chest Pain, Dizziness, Syncope, Nausea , Vomiting - Allergy/Home Medications Allergies/Adverse Reactions: Allergies Allergy/AdvReac Type Severity Reaction Status Date / Time sertraline [From Zoloft] AdvReac Intermediate GI Upset Verified 10/14/18 09:18 PMH/Surg Hx/FS Hx/Imm Hx Previously Healthy: Yes Endocrine/Hematology History: Denies: Hx Anticoagulant Therapy Cardiovascular History: Reports: Hx Pacemaker/ICD, Other Cardiovascular Problems /Disorders - long QT Respiratory History: Denies: Hx Asthma, Hx Chronic Obstructive Pulmonary Disease (COPD) GI History: Reports: Other GI Disorders - elevated LFT History: Denies: Hx Dialysis Sensory History: Denies: Hx Legally Blind, Hx Deafness Opthamlomology History: Denies: Hx Legally Blind Neurological History: Reports: Other Neuro Impairments/Disorders - scoliosis, Psychiatric History: Reports: Hx Anxiety, Hx Depression - Surgical History Surgery Procedure, Year, and Place: TUBES IN EARS - Immunization History Date of Influenza Vaccine: has not received Infectious Disease History: No Infectious Disease History: Denies: Traveled Outside the [place] in Last 30 Days - Family History Known Family History: Positive: Cardiac Disease - Social History Alcohol Use: None Hx Substance Use: No Substance Use Type: Reports: None Hx Tobacco Use: Yes Smoking Status (MU): Former Smoker Type: Cigarettes Review of Systems Positive: Chest Pain Positive: Vomiting, Nausea Neurological: Other - dizziness Positive: Syncope All Other Systems Reviewed And Are Negative: Yes Physical Exam - Summary Physical Exam Summary: Appearance: The patient is well-nourished in no acute distress and in no acute pain. Skin: The skin is warm and dry and skin color reflects adequate perfusion. HEENT: The head is normocephalic and atraumatic. The pupils are equal and reactive. The conjunctivae are clear and without drainage. Nares are patent and without drainage. Mouth reveals moist mucous membranes and the throat is without erythema and exudate. The external ears are intact. The ear canals are patent and without drainage. The tympanic membranes are intact. Neck: The neck is supple with full range of motion and non-tender. There are no carotid bruits. There is no neck vein distension. Respiratory: Chest is non-tender. Lungs are clear to auscultation and breath sounds are symmetrical and equal. Cardiovascular: Heart is regular rate and rhythm. There is no murmur or rub auscultated. There is no peripheral edema and pulses are symmetrical and equal. Abdomen: The abdomen is mildly tender in the epigastrium. There are normal bowel sounds heard in all four quadrants and there is no organomegaly palpated. Musculoskeletal: There is no back tenderness noted. Extremities are non-tender with full range of motion. There is good capillary refill. There is no peripheral edema or calf tenderness elicited. Neurological: Patient is alert and oriented to person, place and time. The patient has symmetrical motor strength in all four extremities. Cranial nerves are grossly intact. Deep tendon reflexes are symmetrical and equal in all four extremities. Psychiatric: The patient has an appropriate affect and does not exhibit any anxiety or depression. Triage Information Reviewed: Yes Vital Signs On Initial Exam: Initial Vitals Temp Pulse Resp BP Pulse Ox 98.4 F 73 19 115/70 100 10/14/18 07:22 10/14/18 07:22 10/14/18 07:22 10/14/18 07:22 10/14/18 07:22 Vital Signs Reviewed: Yes Diagnostics - Vital Signs Vital Signs Temp Pulse Resp BP Pulse Ox 10/14/18 07:22 98.4 F 73 19 115/70 100 - Laboratory Result Diagrams: 10/14/18 07:38 10/14/18 07:38 Lab Statement: Any lab studies that have been ordered have been reviewed, and results considered in the medical decision making process. - Radiology CXR Radiology Interpretation Completed By: Radiologist Summary of Radiographic Findings: No radiographic evidence for acute cardiopulmonary abnormality on this portable chest x-ray. ED physician has reviewed this report. - EKG 0741 Cardiac Rate: Bradycardia - 57bpm EKG Rhythm: Sinus Bradycardia ST Segment: Normal Ectopy: None EKG Comparison: No Significant Change Summary of EKG Findings: EKG at 0741 shows sinus bradycardia at 56bpm with no STEMI. Unchanged from 10/05/18. Chest Pain Course/Dx - Course Course Of Treatment: Lul Locke presented to the emergency department after a syncopal episode at home. He woke up and had some nausea was syncopal and then vomited up a small amount of blood. He complains of epigastric and anterior chest pain. He was nontoxic in appearance with stable vital signs on arrival and placed on the monitor. EKG was unremarkable and unchanged from previous. Labs were obtained and were within normal limits. He has a pacemaker and ICD and what is noted to presented here to the emergency department for vasovagal syncope in the past. 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 He was given IV Protonix and Zofran here and got complete relief of his symptoms. I recommended he follow-up with his PCP and return if symptoms returned. - Diagnoses Provider Diagnoses: Vasovagal syncope, Epigastric abdominal pain Discharge - Sign-Out/Discharge Documenting (check all that apply): Patient Departure Patient Received Moderate/Deep Sedation with Procedure: No - Discharge Plan Condition: Stable Disposition: HOME Referrals: Madelaine Bell MD [Primary Care Provider] - Additional Instructions: Please follow up with your primary care physician within the next 1-3 days. Return to the emergency department with any new or worsening symptoms. - Billing Disposition and Condition Condition: STABLE Disposition: Home - Attestation Statements Document Initiated by Scribe: Yes Documenting Scribe: Karen Knox Provider For Whom Scribe is Documenting (Include Credential): Parviz Nielson MD. Scribe Attestation: Karen Pace, scribed for Parviz Nielson MD. on 10/14/18 at 1113. Scribe Documentation Reviewed: Yes Provider Attestation: The documentation as recorded by the scribe, Karen Knox accurately reflects the service I personally performed and the decisions made by me, Parviz Nielson MD. Status of Scribe Document: Viewed Consult Consult: [id number] - I spoke to Shereen Baeza NP, from [facility] about the pt's present condition.
[2018-10-14 07:54] LABS: ABS Basophils 0.1 10^3/ul (0-0.2); ABS Eosinophils 0.2 10^3/ul (0-0.6); ABS Lymphocytes 1.5 10^3/ul (1.0-4.8); ABS Monocytes 0.5 10^3/ul (0-0.8); ABS Neutrophils 3.9 10^3/ul (1.5-7.7); Eosinophil % 2.8 %; Hematocrit 42 % (42-52); Hemoglobin 13.8 g/dL (14.0-18.0); Lymphocyte % 24.1 %; Mean Corpuscular HGB Conc 33 g/dL (31-36); Mean Corpuscular Hemoglobin 29 pg (27-31); Mean Corpuscular Volume 87 fL (80-94); Nucleated Red Blood Cells % 0.1; Platelet Count 154 10^3/uL (150-450); Red Blood Count 4.86 10^6 /uL (4.18-5.48); Red Cell Distribution Width 15 % (10.5-15); White Blood Count 6.1 10^3/uL (3.5-10.8)
[2018-10-14 08:05] LABS: Albumin 4.4 g/dL (3.2-5.2); Albumin/Globulin Ratio 1.8 (1-3); BUN/Creatinine Ratio 20.9 (8-20); EGFR African American 129.1 (>60); EGFR Non-African American 106.7 (>60); Globulin 2.5 g/dL (2-4); Total Bilirubin 0.4 mg/dL (0.2-1.0); Total Protein 6.9 g/dL (6.4-8.9)
[2018-10-14 08:07] LABS: Troponin I 0.01 ng/mL (<0.04)
[2018-10-14 10:22] VITALS: BP 0/0
== END 2018-10-14 10:20 | disposition home or self-care (01) ==
LOC: ED 07:11
DX: Z88.8 Allergy status to other drugs, medicaments and biological substances (principal); Z95.0 Presence of cardiac pacemaker; R55 Syncope and collapse; R10.13 Epigastric pain
CPT/HCPCS: 36415; 71045; 80053; 83605; 83690; 84484; 85025; 93005; 96361; 96374; 99283

== ENCOUNTER 2018-10-28 08:36 | Emergency (ER) | payer SELFPAY ==
[2018-10-28 08:50] VITALS: BP 105/76
--- NOTE | 2018-10-28 09:46 | UC ---
UC General HPI - HPI Summary HPI Summary: Patient with PMhx of PUD - had EGD last 05/20 and started pantoprazole - almost out but is compliant. States yesterday he developed epigastric pain - ate food and felt better. This morning he again had same pain, went to make toast and got nauseated and vomited a small amount of mucus with blood in it. Pain still present but not as bad since eating crackers. States he feels like his breath is like cleaning supplies - ammonia. Increase in thirst. Meds reviewed. Also having discomfort in left ear - History of Current Complaint Chief Complaint: UCGI Stated Complaint: VOMITING BLOOD FB IN EAR Time Seen by Provider: 10/28/18 09:25 Pain Intensity: 0 - Allergy/Home Medications Allergies/Adverse Reactions: Allergies Allergy/AdvReac Type Severity Reaction Status Date / Time sertraline [From Zoloft] AdvReac Intermediate GI Upset Verified 10/28/18 08:42 PMH/Surg Hx/FS Hx/Imm Hx Previously Healthy: No Cardiovascular History: Pacemaker/ICD GI/ History: Gastroesophageal Reflux, Ulcer Other History Of: Negative For: Anticoagulant Therapy - Surgical History Surgical History: Yes Surgery Procedure, Year, and Place: 2016 AICD insertion - Family History Known Family History: Positive: Cardiac Disease - Social History Alcohol Use: None Substance Use Type: None Smoking Status (MU): Former Smoker Type: Cigarettes Review of Systems All Other Systems Reviewed And Are Negative: Yes Constitutional: Positive: Negative Gastrointestinal: Positive: Abdominal Pain, Vomiting, Nausea Physical Exam Triage Information Reviewed: Yes Appearance: Well-Appearing Vital Signs: Initial Vital Signs Temp 97.6 F 10/28/18 08:43 Pulse 52 10/28/18 08:43 Resp 16 10/28/18 08:43 BP 105/76 10/28/18 08:43 Pulse Ox 100 10/28/18 08:43 ENT: Positive: Normal ENT inspection, Other - b/l tm's scarred, no bulging or fluid Neck: Positive: Supple, Nontender Respiratory: Positive: Lungs clear, Normal breath sounds Cardiovascular: Positive: Bradycardia, Murmur:Sys:Grade _?_/ - 2 Abdomen Description: Positive: Soft, Other: - epigastric tenderness Course/Dx - Course Course Of Treatment: This is a 28 yr old with PMhx of PUD who presents with epigastric pain and mucus /blood vomity x 1 Assessment Glucose: 84 Likely adam lassiter tear. Small mucus blood per patient. No signs of anemia Plan Your glucose was normal Recommend continuing pantoprazole Start Carafate as prescribed Follow up with GI - re-establishing with GI If you continue to have blood in your vomit, return to the ER - Diagnoses Provider Diagnosis: Gastritis Discharge - Sign-Out/Discharge Documenting (check all that apply): Patient Departure All imaging exams completed and their final reports reviewed: No Studies - Discharge Plan Condition: Fair Disposition: HOME Prescriptions: Pantoprazole TAB * [Protonix TAB*] 40 mg PO DAILY #30 tab Sucralfate TAB* [Carafate*] 1 gm PO QID #120 tab Patient Education Materials: Gastritis (ED) Referrals: Madelaine Bell MD [Primary Care Provider] - Additional Instructions: Your glucose was normal Recommend continuing pantoprazole Start Carafate as prescribed Follow up with GI - re-establishing with GI If you continue to have blood in your vomit, return to the ER - Billing Disposition and Condition Condition: FAIR Disposition: Home
== END 2018-10-28 09:53 | disposition home or self-care (01) ==
LOC: UCEAST 08:36
DX: K29.70 Gastritis, unspecified, without bleeding (principal); K25.9 Gastric ulcer, unspecified as acute or chronic, without hemorrhage or perforation; K21.9 Gastro-esophageal reflux disease without esophagitis; Z79.899 Other long term (current) drug therapy; Z88.8 Allergy status to other drugs, medicaments and biological substances; Z87.891 Personal history of nicotine dependence
CPT/HCPCS: 99212; G0463

== ENCOUNTER 2018-11-04 18:57 | Emergency (ER) | payer MEDICAID ==
[2018-11-04] MEDS ORDERED: NS 0.9% 1000 ML** 1,000 ML IV ONE (21:35)
[2018-11-04] MEDS ORDERED: levETIRAcetam 1000MG IVPREMIX* 1,000 MG/100 ML BAG IVPB ONE (21:35)
[2018-11-04 22:04] LABS: ABS Basophils 0.1 10^3/ul (0-0.2); ABS Lymphocytes 1.5 10^3/ul (1.0-4.8); ABS Monocytes 0.5 10^3/ul (0-0.8); ABS Neutrophils 4.2 10^3/ul (1.5-7.7); Eosinophil % 0.7 %; Hematocrit 39 % (42-52); Hemoglobin 12.9 g/dL (14.0-18.0); Lymphocyte % 23.5 %; Mean Corpuscular HGB Conc 33 g/dL (31-36); Mean Corpuscular Hemoglobin 29 pg (27-31); Mean Corpuscular Volume 86 fL (80-94); Platelet Count 158 10^3/uL (150-450); Red Blood Count 4.52 10^6 /uL (4.18-5.48); Red Cell Distribution Width 14 % (10.5-15); White Blood Count 6.3 10^3/uL (3.5-10.8)
[2018-11-04 22:21] LABS: ALT 15 U/L (7-52); AST 22 U/L (13-39); Albumin 4.3 g/dL (3.2-5.2); Albumin/Globulin Ratio 1.7 (1-3); Alkaline Phosphatase 55 U/L (34-104); Anion Gap 8 mmol/L (2-11); BUN/Creatinine Ratio 21.5 (8-20); Blood Urea Nitrogen 20 mg/dL (6-24); CO2 Carbon Dioxide 27 mmol/L (22-32); Calcium 9.5 mg/dL (8.6-10.3); Chloride 105 mmol/L (101-111); EGFR African American 117.9 (>60); EGFR Non-African American 97.5 (>60); Globulin 2.5 g/dL (2-4); Glucose 86 mg/dL (70-100); Potassium 3.5 mmol/L (3.5-5.0); Sodium 140 mmol/L (135-145); Total Protein 6.8 g/dL (6.4-8.9)
--- NOTE | 2018-11-04 22:23 | ED ---
Neurological HPI - HPI Summary HPI Summary: The pt is presenting to [facility] accompanied by his mother with a chief complaint of 3 Sz in the past two days. The first occurred while standing in his girlfriends doorway and was going to go outside, as soon as he opened the door he fell and hit her hip and started shaking on the ground. He had two others on the way to [facility] on the bus. The first time his mom stopped his fall, the second one he fell forward and slammed into the bus floor. Mother stated that the pt started shaking and dropped his phone prior to falling and continued shaking his whole body after sitting back up in a chair. The first one lasted 2- 3 minutes. After shaking he was confused and unable to recognize his own mother for a little bit. Pt was sitting in the aisle. The second episode on the bus lasted the same length as the first one and had the same outcome with confusion. The pt called his girlfriend during evaluation and she stated the same symptoms as the mother. The pt felt nauseous and lightheaded after the incidents and the nausea was increased by eating after the episodes occurred and also had a headache. The pt also reported feeling like his L side puffed up and is currently suffering from chest pain. He denies any diaphoresis. The pt was not incontinent after any of the Szs. Pt. has no new medications but does report having a pacemaker. 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 Negative: Vomiting, urinary issues during or after the Sz Episode Lasting: Seconds/Minutes - 2-3 Syncope Context: Witnessed, Loss of Consciousness: Yes, Activity - walking out a door, At Rest - sitting on a bus Seizure Character: Tonic Aggravating: Nothing Alleviating: Rest, Lying Down Associated Signs and Symptoms: Positive: Headache, Memory Loss, Confusion, Loss of Consciousness, Seizure, Nausea/Vomiting - Negative for vomiting, Diaphoresis , Chest Pain - Allergy/Home Medications Allergies/Adverse Reactions: Allergies Allergy/AdvReac Type Severity Reaction Status Date / Time sertraline [From Zoloft] AdvReac Intermediate GI Upset Verified 11/04/18 21:19 PMH/Surg Hx/FS Hx/Imm Hx Previously Healthy: No Endocrine/Hematology History: Denies: Hx Anticoagulant Therapy Cardiovascular History: Reports: Hx Pacemaker/ICD, Other Cardiovascular Problems /Disorders - long QT Respiratory History: Denies: Hx Asthma, Hx Chronic Obstructive Pulmonary Disease (COPD) GI History: Reports: Hx Ulcer, Other GI Disorders - elevated LFT History: Denies: Hx Dialysis Sensory History: Denies: Hx Legally Blind, Hx Deafness Opthamlomology History: Denies: Hx Legally Blind Neurological History: Reports: Other Neuro Impairments/Disorders - scoliosis, Psychiatric History: Reports: Hx Anxiety, Hx Depression - Surgical History Surgery Procedure, Year, and Place: 2015 AICD insertion - Immunization History Date of Influenza Vaccine: has not received Infectious Disease History: No Infectious Disease History: Denies: Traveled Outside the [place] in Last 30 Days - Family History Known Family History: Positive: Cardiac Disease - Social History Alcohol Use: None Hx Substance Use: No Substance Use Type: Reports: None Hx Tobacco Use: Yes Smoking Status (MU): Former Smoker Type: Cigarettes Review of Systems Positive: Skin Diaphoresis Positive: Chest Pain Positive: Nausea. Negative: Vomiting Genitourinary: Negative Neurological: Other - lightheadedness Positive: Headache, Syncope - lasted 2-3 minutes during the Sz All Other Systems Reviewed And Are Negative: Yes Physical Exam - Summary Physical Exam Summary: Appearance: Well-appearing, Well-nourished, lying in bed comfortably Skin: Warm, dry, no obvious rash Eyes: sclera anicteric, no conjunctival pallor ENT: mucous membranes moist, pharynx appears normal Neck: Supple, nontender Respiratory: Clear to auscultation, no signs of respiratory distress Cardiovascular: Normal S1, S2. No murmurs. Normal distal pulses in tibial and radial bilaterally. Abdomen: Soft, nontender, normal active bowel sounds present Musculoskeletal: Normal, Strength/ROM Intact Neurological: A&Ox3, awake and alert, mentation is normal, speech is fluent and appropriate Psychiatric: affect is normal, does not appear anxious or depressed GCS: 15 Triage Information Reviewed: Yes Vital Signs On Initial Exam: Initial Vitals Temp Pulse Resp BP Pulse Ox 98.7 F 56 16 114/83 98 11/04/18 19:12 11/04/18 19:12 11/04/18 19:12 11/04/18 19:12 11/04/18 19:12 Vital Signs Reviewed: Yes - [place] Coma Scale Best Eye Response: 4 - Spontaneous Best Motor Response: 6 - Obeys Commands Best Verbal Response: 5 - Oriented Coma Scale Total: 15 Diagnostics - Vital Signs Vital Signs Temp Pulse Resp BP Pulse Ox 11/04/18 19:12 98.7 F 56 16 114/83 98 - Laboratory Lab Results: Lab Results 11/04/18 Range/Units 21:58 WBC 6.3 (3.5-10.8) 10^3/uL RBC 4.52 (4.18-5.48) 10^6 /uL Hgb 12.9 L (14.0-18.0) g/dL Hct 39 L (42-52) % MCV 86 (80-94) fL MCH 29 (27-31) pg MCHC 33 (31-36) g/dL RDW 14 (10.5-15) % Plt Count 158 (150-450) 10^3/uL MPV 8.0 (7.4-10.4) fL Neut % (Auto) 66.4 % Lymph % (Auto) 23.5 % Evans % (Auto) 8.5 % Eos % (Auto) 0.7 % Baso % (Auto) 0.9 % Absolute Neuts (auto) 4.2 (1.5-7.7) 10^3/ul Absolute Lymphs (auto) 1.5 (1.0-4.8) 10^3/ul Absolute Monos (auto) 0.5 (0-0.8) 10^3/ul Absolute Eos (auto) 0.0 (0-0.6) 10^3/ul Absolute Basos (auto) 0.1 (0-0.2) 10^3/ul Absolute Nucleated RBC 0.0 10^3/ul Nucleated RBC % 0.0 Result Diagrams: 11/04/18 21:58 11/04/18 21:58 Lab Statement: Any lab studies that have been ordered have been reviewed, and results considered in the medical decision making process. - CT Brain CT CT Interpretation Completed By: Radiologist Summary of CT Findings: No acute intracranial findings. The ED Physician has reviewed this report. - EKG 2143 Cardiac Rate: Bradycardia - 47 BPM EKG Rhythm: Sinus Rhythm ST Segment: Normal Ectopy: None Summary of EKG Findings: Sinus bradycardia at 47 BPM, P waves, QRS complex, and T waves are within normal limits, T waves and intervals are normal, no ischemic changes. This is a normal EKG Course/Dx - Course Course Of Treatment: The pt is presenting to [facility] accompanied by his mother with a chief complaint of 3 Sz in the past two days. The first occurred while standing in his girlfriends doorway and was going to go outside, as soon as he opened the door he fell and hit her hip and started shaking on the ground. He had two others on the way to [facility] on the bus. The first time his mom stopped his fall, the second one he fell forward and slammed into the bus floor. The pt received an EKG which showed sinus bradycardia at 60 BPM, P waves, QRS complex, and T waves are within normal limits, T waves and intervals are normal, no ischemic changes. The pt also received a Brai CT which showed no acute intracranial findings. The pt has abnormal lab values of Hgb, Hct, BUN/ Creatinine Ration, and Lactic Acid. The pt will be discharged home with a new Dx of New-Onset Sz in Adults and instructed to follow up with Dr. Peguero within 3 days and to return to [facility] with any new or worsening symtpoms. - Diagnoses Provider Diagnoses: New onset seizure Discharge - Sign-Out/Discharge Documenting (check all that apply): Patient Departure Patient Received Moderate/Deep Sedation with Procedure: No - Discharge Plan Condition: Good Disposition: HOME Prescriptions: levETIRAcetam [Keppra] 500 mg PO BID #60 tablet Patient Education Materials: New-Onset Seizure in Adults (ED) Referrals: Efren Peguero MD [Medical Doctor] - Additional Instructions: You cannot drive until cleared by a physician. Take the seizure medication until you can get in to see the neurologist, they will decide whether to continue it, perhaps after some more tests are done. - Billing Disposition and Condition Condition: GOOD Disposition: Home - Attestation Statements Document Initiated by Scribe: Yes Documenting Scribe: Niels Antunez Provider For Whom Minor is Documenting (Include Credential): Parviz Murry MD Scribe Attestation: I, Niels Antunez, scribed for Parviz Murry MD on 11/05/18 at 0515. Scribe Documentation Reviewed: Yes Provider Attestation: The documentation as recorded by the Niels sam accurately reflects the service I personally performed and the decisions made by me, Parviz Murry MD Status of Scribe Document: Viewed
[2018-11-04 22:40] LABS: Alcohol < 10 mg/dL (<10)
[2018-11-05 01:29] VITALS: BP 101/63
== END 2018-11-05 01:20 | disposition home or self-care (01) ==
LOC: ED 18:57
DX: G40.909 Epilepsy, unspecified, not intractable, without status epilepticus (principal); Z87.891 Personal history of nicotine dependence; Z95.810 Presence of automatic (implantable) cardiac defibrillator; F32.9 Major depressive disorder, single episode, unspecified; F41.9 Anxiety disorder, unspecified
CPT/HCPCS: 36415; 70450; 80053; 80320; 83605; 83735; 85025; 93005; 96361; 96374; 99283; G0480

== ENCOUNTER 2018-11-05 23:04 | Emergency (ER) | payer MEDICAID ==
[2018-11-06] MEDS ORDERED: Ibuprofen TAB* 400 MG PO ONE (01:25)
--- NOTE | 2018-11-06 01:26 | ED ---
Back Pain - HPI Summary HPI Summary: A 28 y/o male presents to [facility] with a chief complaint of back pain today. He also reports that his left arm has an area that is swollen, hard and hurts from and IV yesterday. At triage he rated his pain as a 7/10 in severity. He describes his back pain as sharp. - History of Current Complaint Chief Complaint: EDBackInjuryPain Stated Complaint: I HAVE A HARD BUMP ON MY ARM PER PT Time Seen by Provider: 11/06/18 01:21 Hx Obtained From: Patient Onset/Duration: Sudden Onset, Lasting Hours, Still Present Onset/Duration: Started Hours Ago, Still Present Timing: Constant Back Pain Location: Is Diffuse Severity Initially: Moderate Severity Currently: Moderate Pain Intensity: 7 Pain Scale Used: 0-10 Numeric Character: Sharp Aggravating Symptom(s): Nothing Alleviating Symptom(s): Nothing Associated Signs And Symptoms: Negative: Fever - Allergies/Home Medications Allergies/Adverse Reactions: Allergies Allergy/AdvReac Type Severity Reaction Status Date / Time sertraline [From Zoloft] AdvReac Intermediate GI Upset Verified 11/04/18 21:19 PMH/Surg Hx/FS Hx/Imm Hx Endocrine/Hematology History: Denies: Hx Anticoagulant Therapy Cardiovascular History: Reports: Hx Pacemaker/ICD, Other Cardiovascular Problems /Disorders - long QT Respiratory History: Denies: Hx Asthma, Hx Chronic Obstructive Pulmonary Disease (COPD) GI History: Reports: Hx Ulcer, Other GI Disorders - elevated LFT History: Denies: Hx Dialysis Sensory History: Denies: Hx Legally Blind, Hx Deafness Opthamlomology History: Denies: Hx Legally Blind Neurological History: Reports: Other Neuro Impairments/Disorders - scoliosis, Psychiatric History: Reports: Hx Anxiety, Hx Depression - Surgical History Surgery Procedure, Year, and Place: 2016 AICD insertion - Immunization History Date of Influenza Vaccine: has not received Infectious Disease History: No Infectious Disease History: Denies: Traveled Outside the [place] in Last 30 Days - Family History Known Family History: Positive: Cardiac Disease - Social History Alcohol Use: None Hx Substance Use: No Substance Use Type: Reports: None Hx Tobacco Use: Yes Smoking Status (MU): Former Smoker Type: Cigarettes Review of Systems Negative: Fever Positive: Myalgia - back pain, Other - positive: swollen area of left arm and pain from IV yesterday All Other Systems Reviewed And Are Negative: Yes Physical Exam - Summary Physical Exam Summary: VITAL SIGNS: Reviewed. GENERAL: Patient is a well-developed and nourished MALE who is lying comfortable in the stretcher. Patient is not in any acute respiratory distress. HEAD AND FACE: No signs of trauma. No ecchymosis, hematomas or skull depressions. No sinus tenderness. EYES: PERRLA, EOMI x 2, No injected conjunctiva, no nystagmus. EARS: Hearing grossly intact. Ear canals and tympanic membranes are within normal limits. MOUTH: Oropharynx within normal limits. NECK: Supple, trachea is midline, no adenopathy, no JVD, no carotid bruit, no c- spine tenderness, neck with full ROM CHEST: Symmetric, no tenderness at palpation LUNGS: Clear to auscultation bilaterally. No wheezing or crackles. CVS: Regular rate and rhythm, S1 and S2 present, no murmurs or gallops appreciated. ABDOMEN: Soft, non-tender. No signs of distention. No rebound no guarding, and no masses palpated. Bowel sounds are normal. EXTREMITIES: 1.5 cm round area of redness no induration redness or tenderness left antecubital fossa, Tenderness over lower thoracic spine, Straight leg test negative bilaterally NEURO: Alert and oriented x 3. No acute neurological deficits. Speech is normal and follows commands. SKIN: Dry and warm Triage Information Reviewed: Yes Vital Signs On Initial Exam: Initial Vitals Temp Pulse Resp BP Pulse Ox 97.5 F 54 18 103/66 97 11/05/18 23:11 11/05/18 23:11 11/05/18 23:11 11/05/18 23:11 11/05/18 23:11 Vital Signs Reviewed: Yes Diagnostics - Vital Signs Vital Signs Temp Pulse Resp BP Pulse Ox 11/05/18 23:11 97.5 F 54 18 103/66 97 - Laboratory Lab Statement: Any lab studies that have been ordered have been reviewed, and results considered in the medical decision making process. Back Pain Course/Dx - Course Course Of Treatment: A 28 y/o male presents to [facility] with a chief complaint of back pain today. He also reports that his left arm has an area that is swollen, hard and hurts from and IV yesterday. The physical exam revealed 1.5 cm round area of redness no induration redness or tenderness left antecubital fossa, Tenderness over lower thoracic spine, Straight leg test negative bilaterally. In the ED course the patient was given Motrin PO. The patient will be discharged with a prescription for Motrin and follow up with his PCP. The patient is agreeable with this plan. - Diagnoses Provider Diagnoses: Back pain Discharge - Sign-Out/Discharge Documenting (check all that apply): Patient Departure - DC Patient Received Moderate/Deep Sedation with Procedure: No - Discharge Plan Condition: Stable Disposition: HOME Prescriptions: Ibuprofen TAB* [Motrin TAB* 600 MG] 600 mg PO Q6H PRN #30 tab PRN Reason: Pain Patient Education Materials: Back Pain (ED) Referrals: Madelaine Bell MD [Primary Care Provider] - (2-3 days) Additional Instructions: PLEASE RETURN TO THE ED IMMEDIATELY FOR WORSENING OR CONCERNING SYMPTOMS. - Billing Disposition and Condition Condition: STABLE Disposition: Home - Attestation Statements Document Initiated by Nikoibe: Yes Documenting Scribe: Richard Castillo Provider For Whom Scribe is Documenting (Include Credential): Kellen Cruz MD Scribe Attestation: Richard Pace, scribed for Kellen Cruz MD on 11/06/18 at 2052. Scribe Documentation Reviewed: Yes Provider Attestation: The documentation as recorded by the Richard sam accurately reflects the service I personally performed and the decisions made by Roman vazquez MD Status of Scribe Document: Viewed
[2018-11-06 01:40] VITALS: BP 0/0
== END 2018-11-06 01:39 | disposition home or self-care (01) ==
LOC: ED 23:04
DX: M54.9 Dorsalgia, unspecified (principal); Z87.891 Personal history of nicotine dependence; Z95.0 Presence of cardiac pacemaker
CPT/HCPCS: 99282; A9270-GY

== ENCOUNTER 2018-11-23 19:03 | Emergency (ER) | payer MEDICAID ==
[2018-11-23] MEDS ORDERED: Ketorolac INJ* 15 MG/ML 1 ML VIAL IV PUSH ONE (19:35)
[2018-11-23 20:23] LABS: ABS Basophils 0.1 10^3/ul (0-0.2); ABS Eosinophils 0.1 10^3/ul (0-0.6); ABS Lymphocytes 1.8 10^3/ul (1.0-4.8); ABS Monocytes 0.4 10^3/ul (0-0.8); ABS Neutrophils 4.3 10^3/ul (1.5-7.7); Hematocrit 41 % (42-52); Hemoglobin 13.7 g/dL (14.0-18.0); Lymphocyte % 27.3 %; Mean Corpuscular HGB Conc 33 g/dL (31-36); Mean Corpuscular Hemoglobin 29 pg (27-31); Mean Corpuscular Volume 87 fL (80-94); Mean Platelet Volume 7.9 fL (7.4-10.4); Nucleated Red Blood Cells % 0.1; Platelet Count 171 10^3/uL (150-450); Red Blood Count 4.69 10^6 /uL (4.18-5.48); Red Cell Distribution Width 13 % (10-15); White Blood Count 6.8 10^3/uL (3.5-10.8)
[2018-11-23 20:27] LABS: INR 1.16 (0.82-1.09)
[2018-11-23 20:38] LABS: Albumin 4.1 g/dL (3.2-5.2); Albumin/Globulin Ratio 1.9 (1-3); BUN/Creatinine Ratio 16.8 (8-20); Calcium 8.8 mg/dL (8.6-10.3); EGFR African American 115.1 (>60); EGFR Non-African American 95.1 (>60); Globulin 2.2 g/dL (2-4); Potassium 3.9 mmol/L (3.5-5.0); Total Bilirubin 0.4 mg/dL (0.2-1.0); Total Protein 6.3 g/dL (6.4-8.9)
--- NOTE | 2018-11-23 20:49 | ED ---
HPI Chest Pain - HPI Summary HPI Summary: Patient is a 28 y/o M presenting to ED via EMS with complaints of chest pain onsetting today. He states that he was awoken from a nap by his chest pain. He additionally reports muscle spasms at his left arm. Chest pain is mid-sternal. Some SOB with chest pain is noted, he states that deep breaths aggravate Sx. N/V /D and dizziness are denied. PMHx of asthma, defib, scoliosis, anxiety, depression, schizophrenia, seizures, vtach. Patient takes magnesium, sertraline , and seizure medications which he cannot recall the name of at this time. He reports he was diagnosed with seizures two weeks ago. On triage, pain is rated 7 /10, nothing is noted to aggravate/alleviate Sx. Home medications and allergies are reviewed. - History of Current Complaint Chief Complaint: EDChestPainROMI Time Seen by Provider: 11/23/18 19:21 Hx Obtained From: Patient Onset/Duration: Started Hours Ago, Still Present Timing: Constant, Lasting Hours Current Severity: Severe Pain Intensity: 7 Pain Scale Used: 0-10 Numeric Chest Pain Location: Mid Sternal Chest Pain Radiates To:: Arm - left arm muscle spasms noted Aggravating Factor(s): Deep Breaths Alleviating Factor(s): Nothing Associated Signs and Symptoms: Positive: Chest Pain, Shortness of Breath, Other : - no dizziness; left arm muscle spasms endorsed. Negative: Dizziness, Nausea , Vomiting - Allergy/Home Medications Allergies/Adverse Reactions: Allergies Allergy/AdvReac Type Severity Reaction Status Date / Time sertraline [From Zoloft] AdvReac Intermediate GI Upset Verified 11/04/18 21:19 Home Medications: Home Medications Sertraline* [Zoloft*] 100 mg PO BEDTIME 11/23/18 [History Confirmed 11/23/18] PMH/Surg Hx/FS Hx/Imm Hx Endocrine/Hematology History: Denies: Hx Anticoagulant Therapy Cardiovascular History: Reports: Hx Pacemaker/ICD, Other Cardiovascular Problems /Disorders - long QT Respiratory History: Reports: Hx Asthma Denies: Hx Chronic Obstructive Pulmonary Disease (COPD) GI History: Reports: Hx Ulcer, Other GI Disorders - elevated LFT History: Denies: Hx Dialysis Musculoskeletal History: Reports: Hx Scoliosis Sensory History: Denies: Hx Legally Blind, Hx Deafness Opthamlomology History: Denies: Hx Legally Blind Neurological History: Reports: Hx Seizures, Other Neuro Impairments/Disorders - scoliosis, Psychiatric History: Reports: Hx Anxiety, Hx Depression, Hx Schizophrenia - Surgical History Surgery Procedure, Year, and Place: 2016 AICD insertion - Immunization History Date of Influenza Vaccine: has not received Infectious Disease History: No Infectious Disease History: Denies: Traveled Outside the [place] in Last 30 Days - Family History Known Family History: Positive: Cardiac Disease - Social History Alcohol Use: None Hx Substance Use: No Substance Use Type: Reports: None Hx Tobacco Use: Yes Smoking Status (MU): Former Smoker Type: Cigarettes Review of Systems Positive: Chest Pain Positive: Shortness Of Breath Negative: Vomiting, Diarrhea, Nausea Musculoskeletal: Other - positive - left arm muscle spasms Neurological: Other - negative - dizziness All Other Systems Reviewed And Are Negative: Yes Physical Exam - Summary Physical Exam Summary: VITAL SIGNS: Reviewed. GENERAL: Patient is a well-developed and nourished male who is lying comfortable in the stretcher. Patient is not in any acute respiratory distress. HEAD AND FACE: No signs of trauma. No ecchymosis, hematomas or skull depressions. No sinus tenderness. EYES: PERRLA, EOMI x 2, No injected conjunctiva, no nystagmus. EARS: Hearing grossly intact. Ear canals and tympanic membranes are within normal limits. MOUTH: Oropharynx within normal limits. NECK: Supple, trachea is midline, no adenopathy, no JVD, no carotid bruit, no c- spine tenderness, neck with full ROM CHEST: Symmetric, no tenderness at palpation LUNGS: Clear to auscultation bilaterally. No wheezing or crackles. CVS: Regular rate and rhythm, S1 and S2 present, no murmurs or gallops appreciated. ABDOMEN: Soft, non-tender. No signs of distention. No rebound no guarding, and no masses palpated. Bowel sounds are normal. EXTREMITIES: FROM in all major joints, no edema, no cyanosis or clubbing. NEURO: Alert and oriented x 3. No acute neurological deficits. Speech is normal and follows commands. SKIN: Dry and warm Triage Information Reviewed: Yes Vital Signs On Initial Exam: Initial Vitals Temp Pulse Resp BP Pulse Ox 98.5 F 52 16 111/70 97 11/23/18 19:13 11/23/18 19:13 11/23/18 19:13 11/23/18 19:13 11/23/18 19:13 Vital Signs Reviewed: Yes Diagnostics - Vital Signs Vital Signs Temp Pulse Resp BP Pulse Ox 11/23/18 20:14 52 21 96/69 96 11/23/18 19:44 53 20 113/74 96 11/23/18 19:13 98.5 F 52 16 111/70 97 - Laboratory Lab Results: Lab Results 11/23/18 11/23/18 11/23/18 Range/Units 20:04 20:04 20:04 WBC 6.8 (3.5-10.8) 10^3/uL RBC 4.69 (4.18-5.48) 10^6 /uL Hgb 13.7 L (14.0-18.0) g/dL Hct 41 L (42-52) % MCV 87 (80-94) fL MCH 29 (27-31) pg MCHC 33 (31-36) g/dL RDW 13 (10-15) % Plt Count 171 (150-450) 10^3/uL MPV 7.9 (7.4-10.4) fL Neut % (Auto) 63.8 % Lymph % (Auto) 27.3 % Hanson % (Auto) 6.1 % Eos % (Auto) 2.0 % Baso % (Auto) 0.8 % Absolute Neuts (auto) 4.3 (1.5-7.7) 10^3/ul Absolute Lymphs (auto) 1.8 (1.0-4.8) 10^3/ul Absolute Monos (auto) 0.4 (0-0.8) 10^3/ul Absolute Eos (auto) 0.1 (0-0.6) 10^3/ul Absolute Basos (auto) 0.1 (0-0.2) 10^3/ul Absolute Nucleated RBC 0.0 10^3/ul Nucleated RBC % 0.1 INR (Anticoag Therapy) 1.16 H (0.82-1.09) APTT (26.0-38.0) seconds Sodium 138 (135-145) mmol/L Potassium 3.9 (3.5-5.0) mmol/L Chloride 103 (101-111) mmol/L Carbon Dioxide 29 (22-32) mmol/L Anion Gap 6 (2-11) mmol/L BUN 16 (6-24) mg/dL Creatinine 0.95 (0.67-1.17) mg/dL Est GFR ( Amer) 115.1 (>60) Est GFR (Non-Af Amer) 95.1 (>60) BUN/Creatinine Ratio 16.8 (8-20) Glucose 96 (70-100) mg/dL Calcium 8.8 (8.6-10.3) mg/dL Total Bilirubin 0.40 (0.2-1.0) mg/dL AST 15 (13-39) U/L ALT 9 (7-52) U/L Alkaline Phosphatase 54 (34-104) U/L Troponin I 0.00 (<0.04) ng/mL Total Protein 6.3 L (6.4-8.9) g/dL Albumin 4.1 (3.2-5.2) g/dL Globulin 2.2 (2-4) g/dL Albumin/Globulin Ratio 1.9 (1-3) // Range/Units 20:04 WBC (3.5-10.8) 10^3/uL RBC (4.18-5.48) 10^6 /uL Hgb (14.0-18.0) g/dL Hct (42-52) % MCV (80-94) fL MCH (27-31) pg MCHC (31-36) g/dL RDW (10-15) % Plt Count (150-450) 10^3/uL MPV (7.4-10.4) fL Neut % (Auto) % Lymph % (Auto) % Hanson % (Auto) % Eos % (Auto) % Baso % (Auto) % Absolute Neuts (auto) (1.5-7.7) 10^3/ul Absolute Lymphs (auto) (1.0-4.8) 10^3/ul Absolute Monos (auto) (0-0.8) 10^3/ul Absolute Eos (auto) (0-0.6) 10^3/ul Absolute Basos (auto) (0-0.2) 10^3/ul Absolute Nucleated RBC 10^3/ul Nucleated RBC % INR (Anticoag Therapy) (0.82-1.09) APTT 36.6 (26.0-38.0) seconds Sodium (135-145) mmol/L Potassium (3.5-5.0) mmol/L Chloride (101-111) mmol/L Carbon Dioxide (22-32) mmol/L Anion Gap (2-11) mmol/L BUN (6-24) mg/dL Creatinine (0.67-1.17) mg/dL Est GFR ( Amer) (>60) Est GFR (Non-Af Amer) (>60) BUN/Creatinine Ratio (8-20) Glucose (70-100) mg/dL Calcium (8.6-10.3) mg/dL Total Bilirubin (0.2-1.0) mg/dL AST (13-39) U/L ALT (7-52) U/L Alkaline Phosphatase (34-104) U/L Troponin I (<0.04) ng/mL Total Protein (6.4-8.9) g/dL Albumin (3.2-5.2) g/dL Globulin (2-4) g/dL Albumin/Globulin Ratio (1-3) Result Diagrams: 11/23/18 20:04 11/23/18 20:04 Lab Statement: Any lab studies that have been ordered have been reviewed, and results considered in the medical decision making process. - EKG 1915 Cardiac Rate: Bradycardia - rate of 52 BPM EKG Rhythm: Sinus Bradycardia Summary of EKG Findings: EKG showed sinus bradycardia with rate of 52 BPM, low voltage, no ischemia. Re-Evaluation - Re-Evaluation First Eval Re-Evaluation Time: 20:45 Comment: Results of labs and tests were discussed with the patient. The patient will be discharged to home and follow up with PCP. Strict return precautions were given. Patient is agreeable with plan. Chest Pain Course/Dx - Course Course Of Treatment: Patient is a 28 y/o M presenting to ED via EMS with complaints of chest pain onsetting today. He states that he was awoken from a nap by his chest pain. He additionally reports muscle spasms at his left arm. Chest pain is mid-sternal. Some SOB with chest pain is noted, he states that deep breaths aggravate Sx. N/V/D and dizziness are denied. PMHx of asthma, defib , scoliosis, anxiety, depression, schizophrenia, seizures, vtach. Patient takes magnesium, sertraline, and seizure medications which he cannot recall the name of at this time. He reports he was diagnosed with seizures two weeks ago. Physical exam is unremarkable. EKG showed sinus bradycardia with rate of 52 BPM , low voltage, no ischemia. Labs showed Hgv 13.7, Hct 41, INR 1.16, total protein 6.3, trop 0. During ED course, patient received toradol 15 mg IV PUSH. Results of labs and tests were discussed with the patient. The patient will be discharged to home and follow up with PCP. Strict return precautions were given. Patient is agreeable with plan. - Diagnoses Provider Diagnoses: Atypical chest pain Discharge - Sign-Out/Discharge Documenting (check all that apply): Patient Departure - discharge Patient Received Moderate/Deep Sedation with Procedure: No - Discharge Plan Condition: Stable Disposition: HOME Patient Education Materials: Chest Pain (ED) Referrals: Madelaine Bell MD [Primary Care Provider] - 3 Days Additional Instructions: PLEASE RETURN TO THE ED IMMEDIATELY FOR WORSENING OR CONCERNING SYMPTOMS. FOLLOW UP WITH YOUR PRIMARY CARE PHYSICIAN WITHIN THREE DAYS. - Attestation Statements Document Initiated by Scribe: Yes Documenting Scribe: JENNIFER HOPKINS Provider For Whom Minor is Documenting (Include Credential): VILMA QUINONES MD Scribe Attestation: IJENNIFER, scribed for VILMA QUINONES MD on 11/23/18 at [id number]. Status of Scribe Document: Ready
[2018-11-23 21:04] VITALS: BP 102/67
== END 2018-11-23 21:04 | disposition home or self-care (01) ==
LOC: ED 19:03
DX: R07.89 Other chest pain (principal); Z87.891 Personal history of nicotine dependence; Z95.0 Presence of cardiac pacemaker
CPT/HCPCS: 36415; 80053; 84484; 85025; 85610; 85730; 93005; 96374; 99284; J1885

== ENCOUNTER 2019-01-07 04:35 | Emergency (ER) | payer MEDICAID, OTHER ==
--- NOTE | 2019-01-07 05:06 | ED ---
HPI Chest Pain - HPI Summary HPI Summary: A 28 y/o male presents to [facility] with a chief complaint of chest pain today. He notes that yesterday he was having back pain and took Tylenol and Ibuprofen. He then began having sharp chest pain that sometimes radiates to his ribs, coughing , and lightheadedness. He denies any sore throat, runny nose, abdominal pain or nausea. He has a defibrillator as he had an arrhythmia. - History of Current Complaint Chief Complaint: EDChestPainROMI Time Seen by Provider: 01/07/19 04:56 Hx Obtained From: Patient Onset/Duration: Started Hours Ago Timing: Constant, Lasting Hours Initial Severity: Moderate Current Severity: Moderate Pain Intensity: 6 Pain Scale Used: 0-10 Numeric Chest Pain Location: Diffuse Chest Pain Radiates: Yes Chest Pain Radiates To:: Other - ribs Character: Sharp/Stabbing Aggravating Factor(s): Nothing Alleviating Factor(s): Nothing Associated Signs and Symptoms: Positive: Lightheadedness, Cough, Back Pain. Negative: Fever, Abdominal Pain - Allergy/Home Medications Allergies/Adverse Reactions: Allergies Allergy/AdvReac Type Severity Reaction Status Date / Time sertraline [From Zoloft] AdvReac Intermediate GI Upset Verified 11/04/18 21:19 PMH/Surg Hx/FS Hx/Imm Hx Endocrine/Hematology History: Denies: Hx Anticoagulant Therapy Cardiovascular History: Reports: Hx Pacemaker/ICD, Other Cardiovascular Problems /Disorders - long QT Respiratory History: Reports: Hx Asthma Denies: Hx Chronic Obstructive Pulmonary Disease (COPD) GI History: Reports: Hx Ulcer, Other GI Disorders - elevated LFT History: Denies: Hx Dialysis Musculoskeletal History: Reports: Hx Scoliosis Sensory History: Denies: Hx Legally Blind, Hx Deafness Opthamlomology History: Denies: Hx Legally Blind Neurological History: Reports: Hx Seizures, Other Neuro Impairments/Disorders - scoliosis, Psychiatric History: Reports: Hx Anxiety, Hx Depression, Hx Schizophrenia - Surgical History Surgery Procedure, Year, and Place: 2016 AICD insertion - Immunization History Date of Influenza Vaccine: has not received Infectious Disease History: No Infectious Disease History: Denies: Traveled Outside the [place] in Last 30 Days - Family History Known Family History: Positive: Cardiac Disease - Social History Alcohol Use: None Hx Substance Use: No Substance Use Type: Reports: None Hx Tobacco Use: Yes Smoking Status (MU): Former Smoker Type: Cigarettes Review of Systems Negative: Fever Negative: Sore Throat, Nasal Discharge Positive: Chest Pain Positive: Cough Negative: Abdominal Pain, Nausea Positive: Myalgia - back pain Neurological: Other - positive: lightheaded All Other Systems Reviewed And Are Negative: Yes Physical Exam - Summary Physical Exam Summary: Constitutional: Well-developed, Well-nourished, Alert. (-) Distressed Skin: Warm, Dry HENT: Normocephalic; Atraumatic Eyes: Conjunctiva normal Neck: Musculoskeletal ROM normal neck. (-) JVD, (-) Stridor, (-) Tracheal deviation Cardio: Rhythm regular, rate normal, Heart sounds normal; Intact distal pulses; The pedal pulses are 2+ and symmetric. Radial pulses are 2+ and symmetric. (-) Murmur Pulmonary/Chest wall: Effort normal. (-) Respiratory distress, (-) Wheezes, (-) Rales, reproducible chest wall tenderness Abd: Soft, (-) tenderness, (-) Distension, (-) Guarding, (-) Rebound Musculoskeletal: (-) Edema, reproducible back tenderness Lymph: (-) Cervical adenopathy Neuro: Alert, Oriented x3 Psych: Mood and affect Normal Triage Information Reviewed: Yes Vital Signs On Initial Exam: Initial Vitals Temp Pulse Resp BP Pulse Ox 99.2 F 63 18 104/65 97 01/07/19 04:36 01/07/19 04:36 01/07/19 04:36 01/07/19 04:36 01/07/19 04:36 Vital Signs Reviewed: Yes Diagnostics - Vital Signs Vital Signs Temp Pulse Resp BP Pulse Ox 01/07/19 04:36 99.2 F 63 18 104/65 97 - Laboratory Result Diagrams: 01/07/19 05:24 01/07/19 05:24 Lab Statement: Any lab studies that have been ordered have been reviewed, and results considered in the medical decision making process. - Radiology CXR Radiology Interpretation Completed By: ED Physician Summary of Radiographic Findings: no acute disease. Pending official imaging report. - EKG 04:36 Cardiac Rate: Bradycardia - 53 bpm EKG Rhythm: Sinus Bradycardia Summary of EKG Findings: sinus bradycardia at 53 bpm, normal ID, normal QRS, normal QTc, normal ST, normal T-waves, LAD, otherwise normal EKG. 05:28 Cardiac Rate: Bradycardia - 56 bpm EKG Rhythm: Sinus Bradycardia EKG Comparison: No Significant Change Summary of EKG Findings: sinus bradycardia at 56 bpm, normal ID, normal QRS, normal QTc, normal ST, normal T-waves, LAD, otherwise normal EKG, unchanged from earlier today. Re-Evaluation - Re-Evaluation First Eval Re-Evaluation Time: 06:34 Change: Unchanged Comment: Pain looks like musculoskeletal pain, happens when he twists and turns his torso. Chest Pain Course/Dx - Course Course Of Treatment: A 28 y/o male presents to [facility] with a chief complaint of chest pain today. He notes that yesterday he was having back pain and took Tylenol and Ibuprofen. He then began having sharp chest pain that sometimes radiates to his ribs, coughing, and lightheadedness. The physical exam revealed reproducible back and chest wall tenderness. EKG at 04:36 showed sinus bradycardia at 53 bpm, normal ID, normal QRS, normal QTc, normal ST, normal T- waves, LAD, otherwise normal EKG. EKG at 05:28 showed sinus bradycardia at 56 bpm, normal ID, normal QRS, normal QTc, normal ST, normal T-waves, LAD, otherwise normal EKG, unchanged from earlier today. CXR showed no acute disease. In the ED course the patient was given Toradol IV and Flexeril PO. The patient will be discharged home with a prescription for Flexeril and follow up with his PCP. The patient is agreeable with this plan. - Diagnoses Provider Diagnoses: Muscle strain, Costochondritis Discharge - Sign-Out/Discharge Documenting (check all that apply): Patient Departure - DC Patient Received Moderate/Deep Sedation with Procedure: No - Discharge Plan Condition: Stable Disposition: HOME Prescriptions: Cyclobenzaprine TAB* [Flexeril 10 MG TAB*] 10 mg PO TID #20 tab Patient Education Materials: Muscle Strain (ED), Costochondritis (ED), Chest Wall Pain (ED) Print Language: POLISH Referrals: Madelaine Bell MD [Primary Care Provider] - - Billing Disposition and Condition Condition: STABLE Disposition: Home - Attestation Statements Document Initiated by Scribe: Yes Documenting Scribe: Richard Castillo Provider For Whom Scribe is Documenting (Include Credential): Pamela Magallon MD Scribe Attestation: I, Richard Castillo, scribed for Pamela Walton MD on 01/08/19 at 0743. Scribe Documentation Reviewed: Yes Provider Attestation: The documentation as recorded by the scribe, Richard Castillo accurately reflects the service I personally performed and the decisions made by me, Pamela Walton MD Status of Scribe Document: Viewed
[2019-01-07 05:34] LABS: ABS Basophils 0.1 10^3/ul (0-0.2); ABS Eosinophils 0.2 10^3/ul (0-0.6); ABS Lymphocytes 1.8 10^3/ul (1.0-4.8); ABS Monocytes 0.5 10^3/ul (0-0.8); ABS Neutrophils 3.6 10^3/ul (1.5-7.7); Eosinophil % 2.7 %; Hematocrit 39 % (42-52); Hemoglobin 13.3 g/dL (14.0-18.0); Lymphocyte % 29.8 %; Mean Corpuscular HGB Conc 34 g/dL (31-36); Mean Corpuscular Hemoglobin 29 pg (27-31); Mean Corpuscular Volume 85 fL (80-94); Mean Platelet Volume 8.2 fL (7.4-10.4); Nucleated Red Blood Cells % 0.1; Platelet Count 148 10^3/uL (150-450); Red Blood Count 4.64 10^6 /uL (4.18-5.48); Red Cell Distribution Width 14 % (10-15); White Blood Count 6.1 10^3/uL (3.5-10.8)
[2019-01-07 05:48] LABS: Albumin 4.1 g/dL (3.2-5.2); Albumin/Globulin Ratio 1.8 (1-3); BUN/Creatinine Ratio 25.3 (8-20); Calcium 8.8 mg/dL (8.6-10.3); EGFR African American 134.5 (>60); EGFR Non-African American 111.1 (>60); Globulin 2.3 g/dL (2-4); Potassium 4.3 mmol/L (3.5-5.0); Total Bilirubin 0.3 mg/dL (0.2-1.0); Total Protein 6.4 g/dL (6.4-8.9)
[2019-01-07] MEDS ORDERED: Ketorolac INJ* 30 MG/ML 1 ML VIAL IV PUSH ONE (06:22)
[2019-01-07] MEDS ORDERED: Cyclobenzaprine TAB* 10 MG PO ONE (06:22)
[2019-01-07] MEDS ORDERED: Ketorolac INJ* 30 MG/ML 1 ML VIAL IM ONE (06:37)
[2019-01-07 07:05] VITALS: BP 102/68
== END 2019-01-07 06:52 | disposition home or self-care (01) ==
LOC: ED 04:35
DX: M94.0 Chondrocostal junction syndrome [Tietze] (principal); T14.8XXA Other injury of unspecified body region, initial encounter; X58.XXXA Exposure to other specified factors, initial encounter; Y92.9 Unspecified place or not applicable; I45.81 Long QT syndrome; J45.909 Unspecified asthma, uncomplicated; Z87.891 Personal history of nicotine dependence; Z95.810 Presence of automatic (implantable) cardiac defibrillator; Z88.8 Allergy status to other drugs, medicaments and biological substances
CPT/HCPCS: 36415; 71046; 80053; 83605; 84484; 85025; 93005; 96372; 96374; 99282; A9270-GY; J1885

== ENCOUNTER 2019-08-04 09:41 | Emergency (ER) | payer OTHER ==
[2019-08-04] MEDS ORDERED: NS 0.9% 1000 ML** 1,000 ML IV ONE (10:25)
[2019-08-04] MEDS ORDERED: Acetaminophen TAB* 325 MG PO ONE (10:25)
--- NOTE | 2019-08-04 10:35 | ED ---
Headache - HPI Summary HPI Summary: Patient Is a 29 y/o M presenting to the ED for a chief complaint of headache. Patient describes his headache as intermittent for the last 2-3 weeks, but states that on 08/04/19, the headache became constant. The headache is described as a stabbing sensation, above his eyes. Patient reports inability to smell for the last 2 days, back muscle pain, and nasal congestion. The nasal congestion has since resolved. Patient denies fever, nausea, or neck pain. Recently, he was seen by his PCP 2 weeks ago and diagnosed with a sinus infection. He was prescribed antibiotics and a nasal spray at that time. He has since completed the course of antibiotics. PMHx is significant for dysrhythmia for which he has a defibrillator and epilepsy for which he takes Keppra. He is compliant with his medications. A history of migraines is denied. FMHx is significant for DM and cardiac disease. - History Of Current Complaint Chief Complaint: EDHeadache Stated Complaint: HEADACHE/CAN'T SMELL/BACK PAIN PER PT Time Seen by Provider: 08/04/19 10:25 Hx Obtained From: Patient Onset/Duration: Gradual Onset, Started weeks ago, Still Present Initially Headache Was: Mild Currently Pain Is: Current Pain Scale(0-10)= - 4/10 Timing: Intermittent, Lasting: Character: Sharp - Stabbing Location of Headache: Diffuse Aggravating Factor: Nothing Allevating Factors: Nothing Associated Signs And Symptoms: Sinus Pressure - Allergies/Home Medications Allergies/Adverse Reactions: Allergies Allergy/AdvReac Type Severity Reaction Status Date / Time sertraline [From Zoloft] AdvReac Intermediate GI Upset Verified 11/04/18 21:19 Home Medications: Home Medications Magnesium Oxide TAB* [MagOx 400 TAB*] 400 mg PO DAILY 04/18/18 [History Confirmed 08/04/19] levETIRAcetam [Keppra] 500 mg PO BID #60 tablet 11/05/18 [Rx Confirmed 08/04/19] DULoxetine DR KNOTT* [Cymbalta CAP*] 30 mg PO BID 08/04/19 [History Confirmed 08/20] Metoprolol Succinate XL TAB* [Toprol XL TAB*] 12.5 mg PO BEDTIME 08/04/19 [ History Confirmed 08/04/19] PMH/Surg Hx/FS Hx/Imm Hx Previously Healthy: Yes Endocrine/Hematology History: Denies: Hx Anticoagulant Therapy Cardiovascular History: Reports: Hx Pacemaker/ICD, Other Cardiovascular Problems /Disorders - long QT Respiratory History: Reports: Hx Asthma Denies: Hx Chronic Obstructive Pulmonary Disease (COPD) GI History: Reports: Hx Ulcer, Other GI Disorders - elevated LFT History: Denies: Hx Dialysis Musculoskeletal History: Reports: Hx Scoliosis Sensory History: Denies: Hx Legally Blind, Hx Deafness Opthamlomology History: Denies: Hx Legally Blind EENT History: Denies: Hx Deafness Neurological History: Reports: Hx Seizures, Other Neuro Impairments/Disorders - scoliosis, epilepsy Denies: Hx Migraine Psychiatric History: Reports: Hx Anxiety, Hx Depression, Hx Schizophrenia - Surgical History Surgical History: Yes Surgery Procedure, Year, and Place: 2015 AICD insertion - Immunization History Date of Influenza Vaccine: has not received Immunizations Up to Date: Yes Infectious Disease History: No Infectious Disease History: Denies: Traveled Outside the [place] in Last 30 Days - Family History Known Family History: Positive: Cardiac Disease, Diabetes - Social History Occupation: Unemployed Lives: Alone Alcohol Use: None Hx Substance Use: No Substance Use Type: Reports: None Hx Tobacco Use: Yes Smoking Status (MU): Former Smoker Type: Cigarettes Review of Systems Negative: Fever Positive: Other - Positive nasal congestion, resolved, and anosmia Negative: Nausea Positive: Myalgia - Positive back; negative neck Positive: Headache All Other Systems Reviewed And Are Negative: Yes Physical Exam - Summary Physical Exam Summary: Constitutional: Well-developed, Well-nourished, Alert. (-) Distressed Skin: Warm, Dry HENT: Normocephalic; Atraumatic Eyes: Conjunctiva normal, PERRL. EOMI Neck: Musculoskeletal ROM normal neck. (-) JVD, (-) Stridor, (-) Nuchal rigidity Cardio: Rhythm regular, rate normal, Heart sounds normal; Intact distal pulses; Radial pulses are 2+ and symmetric. (-) Murmur Pulmonary/Chest wall: Effort normal. (-) Respiratory distress, (-) Wheezes, (-) Rales Abd: Soft, (-) tenderness, (-) Distension, (-) Guarding, (-) Rebound Musculoskeletal: (-) Edema Lymph: (-) Cervical adenopathy Neuro: Alert, Oriented x3 Psych: Mood and affect Normal Triage Information Reviewed: Yes Vital Signs On Initial Exam: Initial Vitals Temp Pulse Resp BP Pulse Ox 98.4 F 62 16 106/69 98 08/04/19 09:45 08/04/19 09:45 08/04/19 09:45 08/04/19 09:45 08/04/19 09:45 Vital Signs Reviewed: Yes Procedures - Sedation Patient Received Moderate/Deep Sedation with Procedure: No Diagnostics - Vital Signs Vital Signs Temp Pulse Resp BP Pulse Ox 08/04/19 09:45 98.4 F 62 16 106/69 98 - Laboratory Lab Statement: Any lab studies that have been ordered have been reviewed, and results considered in the medical decision making process. - CT Brain CT CT Interpretation Completed By: Radiologist Summary of CT Findings: Brain CT IMPRESSION: No intracranial mass or hemorrhage is noted. Reviewed by Dr. Galo. Re-Evaluation - Re-Evaluation First Eval Re-Evaluation Time: 11:40 Change: Improved Comment: At 11:40, patient is feeling much better and his symptoms are resolved. He would like to go home. Headache Course/Dx - Course Course Of Treatment: 29 y/o male w recent sinusitis p/w headache and amnosia. - This is a patient who presents with headache. Although does NOT have a history of headache of exactly the same type, pain was not sudden onset/thunderbolt, not worst of life (disagree w triage note, as patient reports 4/10 headache, gradual and intermittent over 3 weeks), no meningismus, no neuro deficit on exam , and no personal/family history of aneurysm, so unlikely ICH. No known/ suspected cancer and neuro exam WNL, so unlikely mass lesion. No fever, meningismus, or known immunocompromised state to suggest meningitis. Will check head CT given persistent headache to r/o mass. Do not suspect meningitis or SAH therefore LP performed at this point. Will try symptomatic relief and reassess. Denies current hip pain. - Diagnoses Provider Diagnoses: Headache, Anosmia Discharge ED - Sign-Out/Discharge Documenting (check all that apply): Patient Departure - Discharge - Discharge Plan Condition: Stable Disposition: HOME Patient Education Materials: Acute Headache (DC) Referrals: Madelaine Bell MD [Primary Care Provider] - Tobin Oates MD [Medical Doctor] - Additional Instructions: You were seen in the emergency department for headache. Your head CT did not show any abnormalities. You can follow up with ENT regarding your loss of smell. Please follow up with your primary care doctor in next 2-3 days and return to emergency department for worsening headaches, confusion or concerning symptoms. It was a pleasure taking care of you today. - Billing Disposition and Condition Condition: STABLE Disposition: Home - Attestation Statements Document Initiated by Minor: Yes Documenting Scribe: Breonna Herman Provider For Whom Minor is Documenting (Include Credential): Dot Galo MD Scribe Attestation: I, Breonna Herman, scribed for Dot Galo MD on 08/04/19 at 1158. Scribe Documentation Reviewed: Yes Provider Attestation: The documentation as recorded by the Breonna sam accurately reflects the service I personally performed and the decisions made by me, Dot Galo MD Status of Scribe Document: Viewed
[2019-08-04] MEDS ORDERED: Metoclopramide IV* 5 MG/ML 2 ML VIAL IV SLOW PU ONE (10:43)
--- OUTSIDE RECORDS SUMMARY | 2019-08-04 11:09 | XMS REPORT | Continuity of Care Document ---
:1990 External Reference #:[id number] Author Name Gifty Danielle PNP-BC, IVAN, [facility] Address [address] [place] [address] Care Team Providers Name Role Phone Gifty Danielle PNP-BC, FNP, Ibcl[facility] Care Team Information Hvac Technician Residential [phone] - Family Problems Active Problems Provider Date Electrocardiogram abnormal Shereen Baeza, MSN, Onset: 06/19/2016 [employer] Anxiety state Gifty Danielle PNP-BC, FNP, Onset: 04/16/2018 [facility] Moderate recurrent major depression Gifty Danielle PNP-BC, FNP, Onset: 2017 [facility] Posttraumatic stress disorder Gifty Danielle PNP-BC, FNP, Onset: 04/16/2018 [facility] Social History Type Date Description Comments Sex Unknown Tobacco Use Start: Unknown End: Former Cigarette Smoker SMOKED FOR TEN YEARS Unknown 1-5 Cigarettes Daily Smokeless Tobacco Never Used Smokeless Tobacco ETOH Use Denies alcohol use Recreational Drug Use Marijuana 1 bowl a day Tobacco Use Start: Unknown End: Patient is a former Unknown smoker Smoking Status Reviewed: 06/11/19 Patient is a former smoker Allergies, Adverse Reactions, Alerts Active Allergies Reaction Severity Comments Date Zoloft 12/03/2016 Inactive Allergies NKDA 04/23/2016 Medications Active Medications SIG Qnty Indications Ordering Provider Date Duloxetine HCL 1 by mouth every 60caps Gifty Danielle, 06/11/2019 30mg day for 1 week [facility], Caps DR Part then 2 once a [facility] day. Metoprolol Succinate 1/2 by mouth 45tabs Gifty Danielle, 06/11/2019 ER every day at [facility], 25mg Tablets ER 24HR bedtime [facility] Automatic Blood to check bp daily 1units I47.2 Gifty Danielle, 06/11/2019 Pressure Monitor PNP-BC, [employer], [facility] Device I49.5 I45.81 Azithromycin 2 tabs today and 6tabs J20.9 Gifty Danielle, 06/11/2019 250mg Tablets then 1 tab every PNP-BC, [employer], Ibcl[facility] day for 4 more days Magnesium Oxide 1 by mouth every 30tabs Gifty Danielle, 06/13/2018 400mg Tablets day PNP-BC, [employer], Ibcl[facility] Levetiracetam take one tablet by 60tabs Gifty Danielle, 500mg Tablets mouth twice a day PNP-BC, [employer], Ibcl[facility] Medications Administered in Office Medication SIG Qnty Indications Ordering Provider Date PPD Gifty Danielle PNP-BC, 02/19/2017 Injection [employer], Ibcl[facility] Immunizations CPT Code Status Date Vaccine Lot # [id number] Given 04/16/2018 Influenza Virus Vaccine, Quadrivalent, 36 Mos+, [id number] Vital Signs Date Vital Result Comment 06/11/2019 1:18pm BP Systolic 116 mmHg BP Diastolic 78 mmHg Body Temperature 98.7 F Heart Rate 63 /min Respiratory Rate 18 /min Height 68 inches 5'8" Weight 121.00 lb BMI (Body Mass Index) 18.4 kg/m2 BSA (Body Surface Area) 1.65 m2 [place] body weight in kilograms 70 kg O2 % BldC Oximetry 95 % 06/13/2018 1:52pm BP Systolic Sitting Left Arm 98 mmHg BP Diastolic Sitting Left Arm 62 mmHg Heart Rate 50 /min Respiratory Rate 16 /min Height 68 inches 5'8" Weight 127.00 lb BMI (Body Mass Index) 19.3 kg/m2 BSA (Body Surface Area) 1.69 m2 [place] body weight in kilograms 70 kg O2 % BldC Oximetry 96 % Results Description No Information Available Procedures Description No Information Available Medical Devices Description No Information Available Encounters Type Date Location Provider Dx Diagnosis Office Visit 06/11/2019 Family Medicine Gifty Danielle, F33.1 Major depressive 1:[address] PNP-BC, [employer], disorder, [facility] recurrent, moderate F41.9 Anxiety disorder, unspecified Z95.810 Presence of automatic (implantable) cardiac defibrillator G40.89 Other seizures M54.5 Low back pain I45.81 Long QT syndrome R42 Dizziness and giddiness J20.9 Acute bronchitis, unspecified Assessments Date Code Description Provider 06/11/2019 F33.1 Major depressive disorder, Gifty Danielle, JUAN LUISBC, [employer], recurrent, moderate [facility] 06/11/2019 F41.9 Anxiety disorder, unspecified Gifty Danielle PNP-BC, [employer], [facility] 06/11/2019 Z95.810 Presence of automatic (implantable) Gifty Danielle PNP-BC , [employer], cardiac defibrillator [facility] 06/11/2019 G40.89 Other seizures Gifty Danielle PNP-BC, [employer], [facility]cl[facility] 06/11/2019 M54.5 Low back pain Gifty Danielle PNP-BC, [employer], Ibcl[facility] 06/11/2019 I45.81 Long QT syndrome Gifty Danielle PNP-BC, [employer], Ibcl[facility] 06/11/2019 R42 Dizziness and giddiness Gifty Danielle PNP-BC, [employer], Ibcl[facility] 06/11/2019 J20.9 Acute bronchitis, unspecified Gifty Danielle PNP-BC, [employer], Ibclc Plan of Treatment Future Appointment(s):07/28/2019 4:30 pm - Gifty Danielle PNP-BC, [employer], [facility] [address]06/11/2019 - Gifty Danielle PNP-BC, [employer], AlpyrQ90.1 Major depressive disorder, recurrent, moderateComments:I'm hoping that maybe the duloxetine will help your mood/anxiety and your pain. if you have side effects that you can't tolerate let me know, but you have to take it regularly.Follow up:6 ewrcmM41.9 Anxiety disorder, qwmjxxbbhqlF86.810 Presence of automatic (implantable) cardiac defibrillatorFollow up:pls give him cardiology number so he can umesh f/uG40.89 Other seizuresComments:advised pt. that he had an appt. with Dr. Peguero and he needs to go to that appt.M54.5 Low back painNew Therapy:Physical TherapyComments:we'll do a PT referral in TdhnmeucK22.81 Long QT syndromeNew Medication:Automatic Blood Pressure Monitor - to check bp romenI77 Dizziness and zjhjyhpbtF05.9 Acute bronchitis, unspecifiedNew Medication:Azithromycin 250 mg - 2 tabs today and then 1 tab every day for 4 more days Functional Status Description No Information Available Mental Status Description No Information Available Referrals Description No Information Available
[2019-08-04 11:54] VITALS: BP 104/66
== END 2019-08-04 11:53 | disposition home or self-care (01) ==
LOC: ED 09:41
DX: R51 Headache (principal); R43.0 Anosmia; G40.909 Epilepsy, unspecified, not intractable, without status epilepticus; F41.9 Anxiety disorder, unspecified; F32.9 Major depressive disorder, single episode, unspecified; Z95.810 Presence of automatic (implantable) cardiac defibrillator; Z88.8 Allergy status to other drugs, medicaments and biological substances; Z87.891 Personal history of nicotine dependence
CPT/HCPCS: 70450; 96361; 96374; 99283; A9270-GY; J2765

== ENCOUNTER 2021-09-28 01:20 | Inpatient (IN) ==
[2021-09-28] MEDS ORDERED: Amiodarone 150 mg IVPREMIX 150 MG/100 ML BAG IV ONE ×2 (01:23→01:40)
[2021-09-28] MEDS ORDERED: Amiodarone IV 150 mg/3 ml VIAL ONE (01:24)
[2021-09-28] MEDS ORDERED: Amiodarone 360 MG IVPREMIX 360 MG/200 ML BAG IV ONE ×2 (01:24)
[2021-09-28] MEDS ORDERED: Midazolam 2 mg/2 ml VIAL 1 mg/ml 2 ml VIAL (2 mg) IV SLOW PU ONE (01:26)
[2021-09-28] MEDS ORDERED: fentaNYL 100 mcg/2 ml 50 MCG/ML VIAL IV SLOW PU ONE (01:26)
[2021-09-28 01:38] LABS: ABS Basophils 0.1 10^3/ul (0-0.2); ABS Lymphocytes 0.7 10^3/ul (1.0-4.8); ABS Monocytes 1.1 10^3/ul (0-0.8); ABS Neutrophils 13.4 10^3/ul (1.5-7.7); Hematocrit 40 % (42-52); Hemoglobin 13.2 g/dL (14.0-18.0); Lymphocyte % 4.5 %; Mean Corpuscular HGB Conc 33 g/dL (31-36); Mean Corpuscular Hemoglobin 27 pg (27-31); Mean Corpuscular Volume 82 fL (80-94); Mean Platelet Volume 8.8 fL (7.4-10.4); Nucleated Red Blood Cells % 0.1; Platelet Count 109 10^3/uL (150-450); Red Blood Count 4.83 10^6 /uL (4.18-5.48); Red Cell Distribution Width 14 % (10-15); White Blood Count 15.3 10^3/uL (3.5-10.8)
[2021-09-28 01:42] LABS: INR 1.48 (0.86-1.15)
[2021-09-28] MEDS ORDERED: Potassium Chlor 20 meq TAB.ER PO ONE (01:44)
[2021-09-28] MEDS ORDERED: Ondansetron 4 mg VIAL 2 MG/ML 2 ml VIAL IV ONE (02:08)
[2021-09-28] MEDS ORDERED: Lactated Ringers 1000 ml BAG 1,000 ML IV ONE ×3 (02:23→06:16)
[2021-09-28 02:27] LABS: Albumin 3.8 g/dL (3.2-5.2); Albumin/Globulin Ratio 1.3 (1-3); Calcium 8.6 mg/dL (8.6-10.3); Magnesium 1.8 mg/dL (1.9-2.7); Potassium 3.4 mmol/L (3.5-5.0); Total Bilirubin 1.1 mg/dL (0.2-1.0); Total Protein 6.8 g/dL (6.4-8.9); eGFR CKD-EPI 85.1 (>60)
[2021-09-28] MEDS ORDERED: Magnesium Sulfate IV 1GM/100ML 1 GM/100 ML BAG IV ONE (02:35)
[2021-09-28 02:39] LABS: T4, Total 10.96 mcg/dL (6.09-12.23)
[2021-09-28 02:42] LABS: TSH Ultra Thyroid Stim Horm 4.62 mcIU/mL (0.34-5.60)
[2021-09-28 03:04] LABS: High Sensitivity Troponin 1 Hr 656 pg/mL (<20)
[2021-09-28 03:24] LABS: C Reactive Protein 171.4 mg/L (<8.01)
[2021-09-28] MEDS ORDERED: Magnesium Sulfate 2 gm BAG 2 GM/50 ML BAG IVPB ONE ×2 (03:53→08:13)
[2021-09-28] MEDS ORDERED: cefTRIAXone 1 GM ONETIME (Pharmacy Admix) IVPB ONE (04:00)
[2021-09-28 04:53] LABS: HDL Cholesterol 20.4 mg/dL
[2021-09-28 05:39] LABS: Urine Appearance Cloudy; Urine Bilirubin Negative (Negative); Urine Blood 1+ (Negative); Urine Color Yellow; Urine Glucose Negative (Negative); Urine Ketones Negative (Negative); Urine Nitrite Negative (Negative); Urine Protein 1+(30 mg/dL) (Negative); Urine Urobilinogen Negative (Negative)
[2021-09-28 05:42] LABS: Urine Bacteria Absent (Absent); Urine Red Blood Cell Trace(0-2/hpf) (Absent); Urine White Blood Cell 1+(6-10/hpf) (Absent)
[2021-09-28] MEDS: Amiodarone 360 MG IVPREMIX 360 MG/200 ML BAG IV SCH ×2 (08:00→19:37)
[2021-09-28] MEDS ORDERED: KCL 20 MEQ/100 ML IVPREMIX 20 MEQ/100 ML BAG IV ONE (08:06)
[2021-09-28] MEDS: DULoxetine DR 30 mg CAP PO SCH (08:16)
[2021-09-28] MEDS: Bacitracin OINTMENT TUBE TOPICAL SCH ×2 (08:16→21:52)
[2021-09-28] MEDS ORDERED: DULoxetine DR 30 mg CAP PO SCH (09:00)
[2021-09-28] MEDS ORDERED: LORazepam 2 mg VIAL 1 ml IV PUSH PRN (09:19)
[2021-09-28] MEDS ORDERED: Lorazepam PYXIS KEY PRN (09:19)
[2021-09-28] MEDS: KCL 20 MEQ/100 ML IVPREMIX 20 MEQ/100 ML BAG IV SCH ×2 (09:25→12:07)
[2021-09-28] MEDS ORDERED: Potassium Chloride LIQUID 20 MEQ/15 ML LIQUID PO ONE (09:36)
[2021-09-28] MEDS ORDERED: Lorazepam PYXIS KEY ONE (09:37)
[2021-09-28] MEDS ORDERED: LORazepam 2 mg VIAL 1 ml ONE (09:38)
[2021-09-28] MEDS ORDERED: Amiodarone 400 mg TAB PO ONE (09:46)
[2021-09-28] MEDS ORDERED: Amiodarone 400 mg TAB ONE (09:48)
[2021-09-28] MEDS ORDERED: REMDESIVIR IV ONE (12:30)
[2021-09-28] MEDS ORDERED: NS 0.9% IV ONE (12:30)
[2021-09-28 12:40] LABS: Calcium 7.7 mg/dL (8.6-10.3); Magnesium 2.9 mg/dL (1.9-2.7); Potassium 4.5 mmol/L (3.5-5.0); eGFR CKD-EPI 120.7 (>60)
[2021-09-28] MEDS: Heparin 5000 UNITS/ML 1 mL VIAL SUBCUT SCH (16:42)
[2021-09-28] MEDS: ceFAZolin VIAL 2 GM in NS 0.9% 100 ml BAG 100 ML IVPB SCH ×2 (16:56→22:48)
[2021-09-28 23:58] LABS: ABS Basophils 0.1 10^3/ul (0-0.2); ABS Lymphocytes 0.6 10^3/ul (1.0-4.8); ABS Monocytes 0.6 10^3/ul (0-0.8); Hematocrit 37 % (42-52); Hemoglobin 12.4 g/dL (14.0-18.0); Lymphocyte % 5.5 %; Mean Corpuscular HGB Conc 33 g/dL (31-36); Mean Corpuscular Hemoglobin 27 pg (27-31); Mean Corpuscular Volume 83 fL (80-94); Mean Platelet Volume 9.4 fL (7.4-10.4); Nucleated Red Blood Cells % 0.1; Platelet Count 76 10^3/uL (150-450); Red Cell Distribution Width 14 % (10-15); White Blood Count 11.4 10^3/uL (3.5-10.8)
[2021-09-29 00:15] LABS: Calcium 8.2 mg/dL (8.6-10.3); Magnesium 2.3 mg/dL (1.9-2.7); Potassium 4.7 mmol/L (3.5-5.0)
[2021-09-29] MEDS: Heparin 5000 UNITS/ML 1 mL VIAL SUBCUT SCH ×2 (00:28→08:47)
[2021-09-29] MEDS ORDERED: Magnesium Sulfate 2 gm BAG 2 GM/50 ML BAG IVPB ONE ×2 (00:56→08:28)
[2021-09-29] MEDS ORDERED: cefTRIAXone VIAL 1,000 MG in NS 0.9% 50 ML 50 ML IVPB SCH (06:00)
[2021-09-29 06:08] LABS: ABS Lymphocytes 0.8 10^3/ul (1.0-4.8); ABS Monocytes 1.1 10^3/ul (0-0.8); Hematocrit 35 % (42-52); Hemoglobin 11.4 g/dL (14.0-18.0); Lymphocyte % 5.6 %; Mean Corpuscular HGB Conc 33 g/dL (31-36); Mean Corpuscular Hemoglobin 27 pg (27-31); Mean Corpuscular Volume 82 fL (80-94); Mean Platelet Volume 9.6 fL (7.4-10.4); Platelet Count 88 10^3/uL (150-450); Red Blood Count 4.28 10^6 /uL (4.18-5.48); Red Cell Distribution Width 14 % (10-15); White Blood Count 13.9 10^3/uL (3.5-10.8)
[2021-09-29 06:11] LABS: INR 1.37 (0.86-1.15)
[2021-09-29 06:30] LABS: Calcium 8.3 mg/dL (8.6-10.3); Magnesium 2.7 mg/dL (1.9-2.7); Potassium 4.7 mmol/L (3.5-5.0); eGFR CKD-EPI 126.6 (>60)
[2021-09-29] MEDS ORDERED: LORazepam 2 mg VIAL 1 ml ONE ×2 (08:41→10:13)
[2021-09-29] MEDS: DULoxetine DR 30 mg CAP PO SCH (08:47)
[2021-09-29] MEDS ORDERED: Remdesivir 100 mg Vial 100 MG in NS 0.9% 100 ml BAG 100 ML IV SCH (09:00)
[2021-09-29] MEDS ORDERED: Haloperidol 5 mg/ml SDV IV/IM 5 MG/ML AMP ONE (09:50)
[2021-09-29] MEDS ORDERED: Lorazepam PYXIS KEY ONE ×2 (10:13→19:25)
[2021-09-29] MEDS ORDERED: fentaNYL 100 mcg/2 ml 50 MCG/ML VIAL ONE (10:22)
[2021-09-29] MEDS ORDERED: LORazepam 2 mg VIAL 1 ml IV PUSH ONE ×4 (10:39→10:41)
[2021-09-29] MEDS ORDERED: Lorazepam PYXIS KEY PRN ×4 (10:39→10:41)
[2021-09-29] MEDS ORDERED: Haloperidol 5 mg/ml SDV IV/IM 5 MG/ML AMP IV SLOW PU ONE (10:42)
[2021-09-29] MEDS ORDERED: fentaNYL 100 mcg/2 ml 50 MCG/ML VIAL IV SLOW PU ONE (10:42)
[2021-09-29] MEDS ORDERED: fentaNYL 100 mcg/2 ml 50 MCG/ML VIAL IV SLOW PU PRN (10:43)
[2021-09-29] MEDS ORDERED: NS 0.9% 500 ml BAG 500 ML IV SCH (12:00)
[2021-09-29] MEDS ORDERED: Oxacillin 2 GM in NS 0.9% 100 ml BAG 100 ML IVPB SCH (12:00)
[2021-09-29] MEDS ORDERED: Magnesium Sulfate 2 gm BAG 2 GM/50 ML BAG ONE (12:04)
[2021-09-29] MEDS ORDERED: Succinylcholine 200 mg VIAL 20 mg/ml 10 ml VIAL (200 mg) ONE (12:23)
[2021-09-29] MEDS ORDERED: Propofol 10 mg/ml 100 ML BTL 100 ML ONE ×2 (12:28→16:52)
[2021-09-29] MEDS ORDERED: Etomidate 40 mg/20 ml (2 MG/ML) 20 ml VIAL (40 mg) ONE (12:38)
[2021-09-29] MEDS: Bacitracin OINTMENT TUBE TOPICAL SCH (13:06)
[2021-09-29 13:58] VITALS: BP 84/43
[2021-09-29] MEDS ORDERED: NS 0.9% 500 ml BAG 500 ML IV ONE (14:33)
[2021-09-29] MEDS ORDERED: NS 0.9% 1000 ml BAG 1,000 ML IV SCH (14:45)
[2021-09-29] MEDS ORDERED: Chlorhexidine MOUTHWASH 0.12% 15 ML UDC TOPICAL SCH (15:00)
[2021-09-29] MEDS ORDERED: Lidocaine 4 MG/ML IV PREMIX 2,000 MG/500 ML BAG IV ONE ×2 (16:36)
[2021-09-29] MEDS ORDERED: LIDOCAINE 4 MG/ML IV SCH (17:00)
== END 2021-09-29 17:30 | disposition short-term general hospital (02) | DRG 201 ==
LOC: ED 01:20 → EDHOLD 02:55 → ICU 05:30
PROVIDERS: ADMIT Internal Medicine; ATTEND Internal Medicine Critical Care Medicine